=== PATIENT | female | born 1965 | race Caucasian/White ===

== ENCOUNTER → 2018-04-10 11:26 | Outpatient (CLI) | payer OTHER, SELFPAY ==
[2018-04-17 13:06] LABS: HPV APTIMA, High Risk Negative (Negative); HPV Reflexed? YES, CHARGE PATIENT
== END ==
PROVIDERS: Visit Provider Obstetrics & Gynecology
DX: Z12.4 Encounter for screening for malignant neoplasm of cervix (principal)
CPT/HCPCS: 87624; 88175; G0145

== ENCOUNTER → 2018-04-25 07:23 | Outpatient (CLI) | payer OTHER, SELFPAY ==
--- NOTE | 2018-04-25 07:26 | BI_ITS ---
MAMMOGRAPHY - BILATERAL SCREENING REASON FOR EXAM: Female, 52 years old. Routine annual screening examination. PERTINENT HISTORY: Non-contributory. TECHNIQUE: Digital bilateral breast pablo (3D mammographic acquisition) in the CC and MLO projections. 2-D mediolateral oblique (MLO) and craniocaudad (CC) views of both breasts were obtained. CAD: Full Field Digital Mammography with Computer Added Detection was performed. COMPARISON: Comparison is made with prior study dated April 23, 2017 and April 09, 2016. FINDINGS: Breast Composition: There are scattered areas of fibroglandular density. There are no dominant masses or suspicious calcifications. No other significant abnormalities are identified. There has been no significant change since the prior study. BI/SCREENING MAMM (CAD), BILAT IMPRESSION: Stable bilateral screening mammogram. Yearly follow-up mammogram recommended. (A) ASSESSMENT CATEGORY: BIRADS Category 1: Negative. A letter regarding these results will be sent to the patient by the facility within 30 days. Approximately 10% of breast cancers are not detected by mammography. A normal mammogram should not delay biopsy of a clinically suspicious abnormality. [id number] Electronically Signed: Napoleon Eaton MD at 8:43 EDT Tel [phone], Service support ,
== END ==
PROVIDERS: Family Provider Family Medicine; PCP Family Medicine; Visit Provider Obstetrics & Gynecology
DX: Z12.31 Encounter for screening mammogram for malignant neoplasm of breast (principal)
CPT/HCPCS: 77063; 77067

== ENCOUNTER → 2019-03-06 09:11 | Outpatient (CLI) | payer OTHER, SELFPAY ==
[2019-03-06 10:32] LABS: Absolute Lymphocyte Count 2.88 X10^3/ul (0.83-4.51); Absolute Neutrophil Count 2.7 X10^3/uL (2.0-7.7); Basophil# 0.06 X10^3/uL; Eosinophil# 0.11 X10^3/uL; Eosinophils% 1.8 % (0-5); Hematocrit 40.8 % (37-47); Hemoglobin 13.4 g/dl (12.0-15.0); Lymphocyte # 2.88 X10^3/ul (4.0); Lymphocyte % 46.4 % (19-41); Mean Corp Hgb Conc 32.8 g/gl (32-36); Mean Corpuscular Hgb 28.2 pg (27.0-32.0); Mean Corpuscular Volume 85.7 fL (81-99); Mean Platelet Vol. 10.5 fl (6.2-12.0); Monocyte% 8.1 % (0-10); Neutrophil # 2.65 X10^3/uL (2.7-7.7); Neutrophil % 42.5 % (47-70); POSITIVE COUNT NO; POSITIVE DIFFERENTIAL NO; POSITIVE MORPHOLOGY NO; Platelet Count 262 K/mm3 (150-450); RBC Distribution Width CV 13.3 % (11.6-14.6); RBC Distribution Width SD 41.7 fl (35.1-43.9); Red Blood Count 4.76 M/mm3 (4.2-5.4); White Blood Count 6.2 K/mm3 (4.4-11.0)
[2019-03-06 10:36] LABS: Color, Urine Yellow (Yellow); Glucose, Dipstick Normal (Normal); Ketone-Dipstick Negative (Negative); Leukocyte Esterase-Dipstick Negative /ul (Negative); Nitrite-Dipstick Negative (Negative); Occult Blood-Urine Negative /ul (Negative); Protein-Dipstick Negative (Negative); Urine Bilirubin Dipstick Negative (Negative); Urine Clarity Sl. Cloudy (Clear); Urine Urobilinogen Normal (Normal)
[2019-03-06 11:02] LABS: ALB/GLOB Ratio 0.9 RATIO (0.9-2.4); AST(SGOT) 23 U/L (15-37); Alanine Aminotransfer ALT/SGPT 29 U/L (13-56); Albumin, Serum 3.1 g/dL (3.2-5.0); Alkaline Phosphatase 94 U/L (45-117); Anion Gap 5 (5-15); BUN 12 mg/dL (7-18); BUN/Creat Ratio 14.1 RATIO (10-20); Calcium,Total 8.4 mg/dL (8.5-10.1); Chloride 107 mmol/L (98-107); Cholesterol 190 mg/dL (200); Creatinine, Serum 0.85 mg/dL (0.55-1.02); EST Glomerular Filtration Rate 75 mL/min (>60); Est Glom Filt Rate - Afr Amer 90 mL/min (>60); Globulin 3.6 g/dL (2.2-4.2); Glucose 84 mg/dL (74-106); High Density Lipoprotein 44 mg/dL; Potassium 4.4 mmol/L (3.5-5.1); Protein, Total 6.7 g/dL (6.4-8.2); Sodium Level 140 mmol/L (136-145); Thyroid Stim Hormone (TSH) 2.42 uIU/mL (0.358-3.74); Triglycerides 114 mg/dL; Very Low Density Lipoprotein 23 mg/dL (5-40)
== END ==
PROVIDERS: Family Provider Family Medicine; PCP Family Medicine; Referring Provider Family Medicine; Visit Provider Family Medicine
DX: Z00.00 Encounter for general adult medical examination without abnormal findings (principal); E03.9 Hypothyroidism, unspecified
CPT/HCPCS: 36415; 80053; 80061; 81002; 84443; 85025

== ENCOUNTER → 2019-04-15 13:28 | Outpatient (CLI) | payer OTHER, SELFPAY ==
[2019-05-27 16:51] LABS: HPV Reflexed? NOT INDICATED
== END ==
PROVIDERS: Visit Provider Obstetrics & Gynecology
DX: Z12.4 Encounter for screening for malignant neoplasm of cervix (principal)
CPT/HCPCS: 87624; 88175; G0145

== ENCOUNTER → 2019-05-05 07:00 | Outpatient (CLI) | payer OTHER, SELFPAY ==
--- NOTE | 2019-05-05 07:03 | BI_ITS ---
MAMMOGRAPHY - BILATERAL SCREENING REASON FOR EXAM: Female, 53 years old. Routine annual screening examination. PERTINENT HISTORY: Non-contributory. TECHNIQUE: Digital bilateral breast elie (3D mammographic acquisition) in the CC and MLO projections. 2-D mediolateral oblique (MLO) and craniocaudad (CC) views of both breasts were obtained. CAD: Full Field Digital Mammography with Computer Added Detection was performed. COMPARISON: Comparison is made with prior study dated April 25, 2018 and April 23, 2017. FINDINGS: Breast Composition: There are scattered areas of fibroglandular density. There are no dominant masses or suspicious calcifications. No other significant abnormalities are identified. There has been no significant change since the prior study. BI/SCREEN MAMM (CAD) W/ELIE BILAT IMPRESSION: Stable bilateral screening mammogram. Yearly follow-up mammogram recommended. (A) ASSESSMENT CATEGORY: BIRADS Category 1: Negative. A letter regarding these results will be sent to the patient by the facility within 30 days. Approximately 10% of breast cancers are not detected by mammography. A normal mammogram should not delay biopsy of a clinically suspicious abnormality. [id number] Electronically Signed: Napoleon Eaton, at 8:39 EDT , Service support ,
== END ==
PROVIDERS: Family Provider Family Medicine; PCP Family Medicine; Referring Provider Obstetrics & Gynecology; Visit Provider Obstetrics & Gynecology
DX: Z12.31 Encounter for screening mammogram for malignant neoplasm of breast (principal)
CPT/HCPCS: 77063; 77067

== ENCOUNTER → 2020-05-06 07:58 | Outpatient (CLI) | payer OTHER, SELFPAY ==
--- NOTE | 2020-05-06 08:01 | BI_ITS ---
MAMMOGRAPHY - BILATERAL SCREENING REASON FOR EXAM: Female, 54 years old. Routine annual screening examination. PERTINENT HISTORY: Non-contributory. TECHNIQUE: Digital bilateral breast elie (3D mammographic acquisition) in the CC and MLO projections. 2-D mediolateral oblique (MLO) and craniocaudad (CC) views of both breasts were obtained. CAD: Full Field Digital Mammography with Computer Added Detection was performed. COMPARISON: Comparison is made with prior examination dated May 05, 2019 and April 25, 2018. FINDINGS: Breast Composition: There are scattered areas of fibroglandular density. There are no dominant masses or suspicious calcifications. No other significant abnormalities are identified. There has been no significant change since the prior study. BI/SCREEN MAMM (CAD) W/ELIE BILAT IMPRESSION: Stable bilateral screening mammogram. Yearly follow-up mammogram recommended. (A) ASSESSMENT CATEGORY: BIRADS Category 1: Negative. A letter regarding these results will be sent to the patient by the facility within 30 days. Approximately 10% of breast cancers are not detected by mammography. A normal mammogram should not delay biopsy of a clinically suspicious abnormality. [id number] Electronically Signed: Napoleon Eaton, at 8:41 EDT , Service support ,
== END ==
PROVIDERS: PCP Family Medicine; Referring Provider Obstetrics & Gynecology; Visit Provider Obstetrics & Gynecology
DX: Z12.31 Encounter for screening mammogram for malignant neoplasm of breast (principal)
CPT/HCPCS: 77063; 77067

== ENCOUNTER → 2020-12-05 15:45 | Outpatient (CLI) | payer OTHER, SELFPAY ==
[2020-12-05 18:54] LABS: Thyroid Stim Hormone (TSH) 2.72 uIU/mL (0.358-3.74)
== END ==
PROVIDERS: PCP Family Medicine; Referring Provider Family Medicine; Visit Provider Family Medicine
DX: E03.9 Hypothyroidism, unspecified (principal)
CPT/HCPCS: 36415; 84443

== ENCOUNTER → 2021-06-13 | Outpatient (CLI) | payer OTHER, SELFPAY ==
[2021-06-17 15:31] LABS: HPV APTIMA, High Risk Negative (Negative); HPV Reflexed? NOT INDICATED
== END | disposition home or self-care (01) ==
LOC: LABSPEC 14:23
PROVIDERS: PCP Family Medicine; Visit Provider Obstetrics & Gynecology
DX: Z12.4 Encounter for screening for malignant neoplasm of cervix (principal)
CPT/HCPCS: 88175; G0145

== ENCOUNTER → 2021-06-22 07:22 | Outpatient (CLI) | payer OTHER, SELFPAY ==
[2021-06-22 08:45] LABS: AST(SGOT) 25 U/L (15-37); Alanine Aminotransfer ALT/SGPT 35 U/L (13-56); Albumin, Serum 3.3 g/dL (3.2-5.0); Alkaline Phosphatase 84 U/L (45-117); Bilirubin, Direct 0.19 mg/dL (0.00-0.30); Cholesterol 161 mg/dL (200); Globulin 3.8 g/dL (2.2-4.2); High Density Lipoprotein 50 mg/dL; Protein, Total 7.1 g/dL (6.4-8.2); Thyroid Stim Hormone (TSH) 2.45 uIU/mL (0.358-3.74); Triglycerides 96 mg/dL; Very Low Density Lipoprotein 19 mg/dL (5-40)
== END ==
PROVIDERS: PCP Family Medicine; Referring Provider Family Medicine; Visit Provider Family Medicine
DX: E78.5 Hyperlipidemia, unspecified (principal); E03.9 Hypothyroidism, unspecified
CPT/HCPCS: 36415; 80061; 80076; 84443

== ENCOUNTER → 2021-06-26 07:11 | Outpatient (CLI) | payer OTHER, SELFPAY ==
--- NOTE | 2021-06-26 07:13 | BI_ITS ---
MAMMOGRAPHY - BILATERAL SCREENING 3-D TOMOSYNTHESIS REASON FOR EXAM: Female, 55 years old. SCREENING PERTINENT HISTORY: No significant family history. TECHNIQUE: 2-D mammograms and 3-D Tomosynthesis of the breast (s) were performed. CAD was performed. COMPARISON: 05/06/2020 FINDINGS: The breast composition is composed of scattered fibroglandular density. Scattered benign calcifications are seen. No dense spiculated masses or suspicious microcalcifications are identified. No architectural distortion is identified. There is no skin thickening or retraction. There has been no significant change since the prior study. BI/SCRN MAMM (CAD)W/ELIE BILAT IMPRESSION: No mammographic signs of malignancy. Routine yearly mammograms recommended. ASSESSMENT CATEGORY: BIRADS Category 1: Negative. A letter regarding these results will be sent to the patient by the facility within 30 days. FOLLOW UP RECOMMENDATION: Yearly follow up mammogram recommended. (A) Approximately 10% of breast cancers are not detected by mammography. A normal mammogram should not delay biopsy of a clinically suspicious abnormality. Electronically Signed: Wilfred Perales MD at 9:20 EDT Tel , Service support ,
== END ==
PROVIDERS: PCP Family Medicine; Referring Provider Obstetrics & Gynecology; Visit Provider Obstetrics & Gynecology
DX: Z12.31 Encounter for screening mammogram for malignant neoplasm of breast (principal)
CPT/HCPCS: 77063; 77067

== ENCOUNTER → 2022-05-15 | Outpatient (CLI) | payer OTHER, SELFPAY ==
--- NOTE | 2022-05-15 07:34 | BI_ITS ---
MAMMOGRAPHY - BILATERAL SCREENING REASON FOR EXAM: Female, 56 years old. Routine annual screening examination. PERTINENT HISTORY: Non-contributory. TECHNIQUE: Digital bilateral breast elie (3D mammographic acquisition) in the CC and MLO projections. 2-D mediolateral oblique (MLO) and craniocaudad (CC) views of both breasts were obtained. CAD: Full Field Digital Mammography with Computer Added Detection was performed. COMPARISON: Comparison is made with prior study 06/26/2021 and 05/06/2012. FINDINGS: Breast Composition: There are scattered areas of fibroglandular density. There are no dominant masses or suspicious calcifications. Stable small benign-appearing bilateral axillary No other significant abnormalities are identified. There has been no significant change since the prior study. BI/SCRN MAMM (CAD)W/ELIE BILAT IMPRESSION: Stable bilateral screening mammogram. Yearly follow-up mammogram recommended. (A) ASSESSMENT CATEGORY: BIRADS Category 2: Benign. A letter regarding these results will be sent to the patient by the facility within 30 days. Approximately 10% of breast cancers are not detected by mammography. A normal mammogram should not delay biopsy of a clinically suspicious abnormality. [id number] Electronically Signed: Napoleon Eaton MD at 11:57 EDT ,
== END | disposition home or self-care (01) ==
LOC: OPBI 07:32
PROVIDERS: PCP Family Medicine; Referring Provider Obstetrics & Gynecology; Visit Provider Obstetrics & Gynecology
DX: Z12.31 Encounter for screening mammogram for malignant neoplasm of breast (principal)
CPT/HCPCS: 77063; 77067

== ENCOUNTER → 2023-05-20 | Outpatient (CLI) | payer OTHER, SELFPAY ==
--- NOTE | 2023-05-20 14:05 | BI_ITS ---
MAMMOGRAPHY - BILATERAL SCREENING REASON FOR EXAM: Female, 57 years old. Routine annual screening examination. PERTINENT HISTORY: Non-contributory. TECHNIQUE: Digital bilateral breast elie (3D mammographic acquisition) in the CC and MLO projections. 2-D mediolateral oblique (MLO) and craniocaudad (CC) views of both breasts were obtained. CAD: Full Field Digital Mammography with Computer Added Detection was performed. COMPARISON: Comparison is made with prior study dated May 15, 2022 and June 26, 2021. FINDINGS: Breast Composition: There are scattered areas of fibroglandular density. There are no dominant masses or suspicious calcifications. No other significant abnormalities are identified. There has been no significant change since the prior study. BI/SCRN MAMM (CAD)W/ELIE BILAT IMPRESSION: Stable bilateral screening mammogram. Yearly follow-up mammogram recommended. (A) ASSESSMENT CATEGORY: BIRADS Category 1: Negative. A letter regarding these results will be sent to the patient by the facility within 30 days. Approximately 10% of breast cancers are not detected by mammography. A normal mammogram should not delay biopsy of a clinically suspicious abnormality. [id number] Electronically Signed: Napoleon Eaton MD at 15:58 EDT ,
== END | disposition home or self-care (01) ==
LOC: OPBI 14:03
PROVIDERS: PCP Family Medicine; Referring Provider Obstetrics & Gynecology; Visit Provider Obstetrics & Gynecology
DX: Z12.31 Encounter for screening mammogram for malignant neoplasm of breast (principal)
CPT/HCPCS: 77063; 77067

== ENCOUNTER → 2024-06-03 | Outpatient (CLI) | payer OTHER, SELFPAY ==
--- NOTE | 2024-06-03 07:04 | BI_ITS ---
MAMMOGRAPHY - BILATERAL SCREENING REASON FOR EXAM: Female, 58 years old. Routine annual screening examination. PERTINENT HISTORY: Non-contributory. TECHNIQUE: Digital bilateral breast elie (3D mammographic acquisition) in the CC and MLO projections. 2-D mediolateral oblique (MLO) and craniocaudad (CC) views of both breasts were obtained. CAD: Full Field Digital Mammography with Computer Added Detection was performed. COMPARISON: Comparison is made with prior study May 20, 2023 and May 15, 2022. FINDINGS: Breast Composition: There are scattered areas of fibroglandular density. There are no dominant masses or suspicious calcifications. No other significant abnormalities are identified. There has been no significant change since the prior study. BI/SCRN MAMM (CAD)W/ELIE BILAT IMPRESSION: Stable bilateral screening mammogram. Yearly follow-up mammogram recommended. (A) ASSESSMENT CATEGORY: BIRADS Category 1: Negative. A letter regarding these results will be sent to the patient by the facility within 30 days. Approximately 10% of breast cancers are not detected by mammography. A normal mammogram should not delay biopsy of a clinically suspicious abnormality. [id number] Electronically Signed: Napoleon Eaton MD at 9:09 EDT ,
== END | disposition home or self-care (01) ==
LOC: OPBI 07:02
PROVIDERS: PCP Family Medicine; Referring Provider Family Medicine; Visit Provider Family Medicine
DX: Z12.31 Encounter for screening mammogram for malignant neoplasm of breast (principal)
CPT/HCPCS: 77063; 77067

== ENCOUNTER → 2025-06-14 | Outpatient (CLI) | payer BC, SELFPAY ==
--- NOTE | 2025-06-14 07:17 | BI_ITS ---
EXAM: SCRN MAMM (CAD)W/ELIE BILAT DATE: 06/14/2025 CLINICAL HISTORY: F, Age 59 y/o , SCREENING TECHNIQUE: SCRN MAMM (CAD)W/ELIE BILAT COMPARISON: Prior exam(s) dated 06/03/2024, 05/20/2023, and 05/15/2022. FINDINGS: TISSUE DENSITY: There are scattered areas of fibroglandular density. Bilateral Breast Mammographic Findings: Benign round microcalcifications are seen in both breasts. No suspicious masses, suspicious cluster of microcalcifications, architectural distortion or secondary signs of malignancy is identified in either breast. BI/SCRN MAMM (CAD)W/ELIE BILAT IMPRESSION: Benign screening mammogram. OVERALL FINAL ASSESSMENT BI-RADS 2: BENIGN RECOMMENDATION: Routine annual follow-up in 1 Year A letter with findings and recommendations will be mailed to the patient. Reading Location: [id number]
--- OUTSIDE RECORDS SUMMARY | 2025-06-14 07:23 | XMS RPT_ITS | CCD ---
Author Organization [facility] ion Partnership [facility] Care Team Providers Care Acreage Reporter Name Role Phone Kartik GEORGE, Jill Irizarry Primary Care Provider Stephen Ferreira Unavailable Juan Diego Diaz Unavailable Jill Bullock MD Primary Care Provider Juan Diego Diaz Unavailable Jill Bullock MD Primary Care Provider Juan Diego Diaz MD Unavailable Jill Bullock MD Primary Care Provider Jill Bullock MD Primary Care Provider JILL BULLOCK Attending Unavailab JILL Quintero Primary Care Unavailab JILL Quintero Referring Unavailab le JILL BULLOCK Primary Care Unavailab JILL Quintero Attending Unavailab JILL Quintero Primary Care Unavailab JILL Quintero Referring Unavailab JILL Quintero Primary Care Unavailab SHAWNA Beasley Attending Unavailable JILL BULLOCK Primary Care Unavailab le JILL BULLOCK Primary Care Unavailab le ISAAC, JOANNE Attending Unavailable Jill Bullock Primary Care Unavailable [place] BRICK HANDLER, Joanne Referring Unavailable Isaac BRICK HANDLER, Joanne Attending Unavailable Allergies Allergy Classification Reported Allergen(s) Allergy Type Date of Onset Reaction(s) Facility Penicillins (antibiotic) (1 source) Amoxicillin Drug Allergy 07-07-2014 Rash, Itching [facility] (20 sources) Amoxicillin; Translations: [AMOXICILLIN] Drug Allergy 07-07-2014 Intolerance, Rash, Itching [facility] Medications Current Medications Medication Drug Class(es) Dates Sig (Normalized) Sig (Original) levothyroxine sodium 0.125 mg oral tablet (20 sources) l-Thyroxine Start: 04-22-2025 take 1 tablet by mouth once daily levothyroxine (SYNTHROID) 125 mcg tablet Take 1 tablet by mouth once daily. 90 tablet 3 04/22/2025 Active Start: 10-01-2023 End: 04-21-2026 take 1 tablet by mouth once daily levothyroxine (LEVOXYL) 137 mcg tablet Take 1 tablet by mouth once daily. 90 tablet 3 04/21/2025 04/22/2025 Discontinued Start: 03-31-2023 End: 03-30-2024 take 1 tablet by mouth once daily levothyroxine (LEVOXYL) 150 mcg tablet Take 1 tablet by mouth once daily. 90 tablet 3 03/31/2023 10/01/2023 Discontinued Start: 06-28-2022 End: 03-31-2023 take 1 tablet by mouth once daily SYNTHROID 137 mcg tablet Indications: Hypothyroidism, unspecified type Take 1 tablet by mouth once daily. 90 tablet 0 09/26/2022 09/26/2022 Discontinued End: 09-26-2022 take 1 tablet by mouth once daily before breakfast levothyroxine (SYNTHROID) 125 mcg tablet Take 125 mcg by mouth daily before breakfast. 0 09/26/2022 Discontinued Comment on above: Take 125 mcg by mout h daily before breakfast. Take 1 tablet by jose th once daily. Take 137 mcg by mout h once daily. omega 0-raw-vsr-fish oil (FISH OIL) 60-90-500 mg cap (11 sources) End: 05-27-2025 omega 1-ljb-qiz-fish oil (FISH OIL) 60-90-500 mg cap Take by mouth. 05/27/2025 Discontinued omega 3-dha-epa- fish oil (FISH OIL) 60-90-500 mg cap Take by mouth. Active omega 3-dha-epa- fish oil (FISH OIL) 60-90-500 mg cap Take by mouth. 0 Active Comment on above: Take by mouth. proparacaine hydrochloride 5 mg/ml ophthalmic solution (2 sources) Local Anesthetic Start: 07-11-2023 End: 07-12-2023 proparacaine 0.5 % 1 Drop (ALCAINE) Start: 07-11-2022 End: 07-12-2022 proparacaine 0.5 % 1 Drop (A LCAINE) rosuvastatin calcium 10 mg oral tablet (19 sources) HMG-CoA Reductase Inhibitor Start: 03-09-2021 End: 04-21-2025 take 1 tablet by mouth once daily rosuvastatin (CRESTOR) 10 mg tablet Indications: Mixed hyperlipidemia Take 1 tablet by mouth once daily. 90 tablet 3 04/21/2025 Active Comment on above: Take 1 tablet by jose th once daily. Take by mouth. sertraline 100 mg oral tablet (20 sources) Serotonin Reuptake Inhibitor Start: 06-28-2022 End: 04-21-2025 take 1 tablet by mouth once daily sertraline (ZOLOFT) 100 mg tablet Indications: Depressive disorder Take 1 tablet by mouth once daily. 90 tablet 3 04/21/2025 Active End: 09-26-2022 SERTRALINE HCL (ZOLOFT ORAL) Take by mouth once daily. 0 09/26/2022 Discontinued SERTRALINE HCL ( ZOLOFT ORAL) Take by mouth once daily. 0 Active Comment on above: Take by mouth once d aily. Take 1 tablet by jose th once daily. Completed/Discontinued Medications Medication Drug Class(es) Dates Sig (Normalized) Sig (Original) benoxinate hydrochloride 4 mg/ml / fluorescein sodium 2.5 mg/ml ophthalmic solution (3 sources) Diagnostic Dye Start: 07-17-2024 End: 07-17-2024 fluorescein-benoxi black 0.25-0.4 % 1 Drop (FLURESS) Start: 07-17-2024 End: 07-17-2024 1 Drop, BOTH EYES, ONCE, 1 d ose, On Sat07/17/24 at 0830, FOR THE EYE Start: 07-11-2022 End: 07-12-2022 fluorescein-benoxinate 0.25- 0.4 % 1 Drop (FLURESS) Ethinyl Estradiol / Levonorgestrel (3 sources) Progestin, Estrogen, Progestin-containing Intrauterine Device Start: 07-08-2015 End: 09-26-2022 LEVORA-28 0.15-0.03 mg per tablet Start: 07-08-2015 LEVORA-28 0.15 -0.03 mg per tablet MULTIVITAMIN ORAL (3 sources) End: 09-26-2022 MULTIVITAMIN ORAL Take by mo ut. 0 09/26/2022 Discontinued MULTIVITAMIN ORA L Take by mouth. 0 Active Comment on above: Take by mouth. [place]-3 Fatty Acids-Vitamin E (FISH OIL) 1,000 mg cap (3 sources) End: 09-26-2022 take 1 capsule by mouth once daily [place]-3 Fatty Acids-Vitamin E (FISH OIL) 1,000 mg cap Take 1 capsule by mouth once daily. 0 09/26/2022 Discontinued take 1 capsule by mouth once cheko ly [place]-3 Fatty Acids-Vitamin E (FISH OIL) 1,000 mg cap Take 1 capsule by mouth once daily. 0 Active Comment on above: Take 1 capsule by [facility] once daily. phenylephrine hydrochloride 25 mg/ml ophthalmic solution (4 sources) alpha-1 Adrenergic Agonist Start: 07-17-2024 End: 07-17-2024 PHENYLephrine 2.5 % 1 Drop (AK-DILATE, ANUM-SYNEPHRINE) Start: 07-17-2024 End: 07-17-2024 1 Drop, BOTH EYES, ONCE, 1 d ose, On Sat07/17/24 at 0830, FOR OPHTHALMIC USE ONLY PROTECT FROM LIGHT Start: 07-11-2023 End: 07-12-2023 PHENYLephrine 2.5 % 1 Drop ( AK-DILATE, ANUM-SYNEPHRINE) Start: 07-11-2022 End: 07-12-2022 PHENYLephrine 2.5 % 1 Drop ( AK-DILATE, ANUM-SYNEPHRINE) tropicamide 10 mg/ml ophthalmic solution (4 sources) Anticholinergic Start: 07-17-2024 End: 07-17-2024 tropicamide 1 % 1 Drop (MYDRIACYL) Start: 07-17-2024 End: 07-17-2024 1 Drop, BOTH EYES, ONCE, 1 d ose, On Sat07/17/24 at 0830, FOR THE EYE Start: 07-11-2023 End: 07-12-2023 tropicamide 1 % 1 Drop (MYDR IACYL) Start: 07-11-2022 End: 07-12-2022 tropicamide 1 % 1 Drop (MYDR IACYL) Problems Active Problems Problem Classification Problem Date Documented Da te Episodic/Chronic Disorders of lipid metabolism (20 sources) Mixed hyperlipidemia; Translations: [Mixed hyperlipidemia] Onset: 03-10-2020 Chronic Mood disorders (20 sources) Depressive disorder; Translations: [Depressive disorder] Onset: 07-22-2017 Chronic Other eye disorders (20 sources) Bilateral vitreous floaters; Translations: [Other vitreous opacities, bilateral] Onset: 07-08-2014 07-28-2015 Chronic Other eye disorders (1 source) Bilateral posterior vitreous detachment; Translations: [Vitreous degeneration, bilateral] 07-17-2024 Chronic Other screening for suspected conditions (not mental disorders or infectious disease) (13 sources) Patient encounter status; Translations: [Encounter for screening for diseases of the blood and blood-forming organs and certain disorders involving the immune mechanism] Onset: 04-21-2025 Episodic Screening and history of mental health and substance abuse codes (1 source) Encounter for screening examination for other mental health and behavioral disorders; Translations: [Encounter for screening examination for other mental health and behavioral disorders] Onset: 04-21-2025 Episodic Thyroid disorders (20 sources) Hypothyroidism; Translations: [Hypothyroidism, unspecified] Onset: 07-22-2017 Chronic Past or Other Problems Problem Classification Problem Date Documented Da te Episodic/Chronic Other eye disorders (8 sources) Degenerative progressive high myopia; Translations: [Degenerative myopia, unspecified eye] Onset: 07-08-2014 Resolved: 09-06-2016 09-06-2016 Chronic Other eye disorders (20 sources) Tear film insufficiency; Translations: [Dry eye syndrome of bilateral lacrimal glands] Onset: 09-06-2016 09-17-2019 Episodic Retinal detachments; defects; vascular occlusion; and retinopathy (8 sources) Peripheral retinal degeneration; Translations: [Unspecified peripheral retinal degeneration] Onset: 07-08-2014 Resolved: 09-06-2016 09-06-2016 Chronic Unclassified (1 source) Patient encounter status 03-30-2025 Results Test Name Value Interpretation Reference Range Facility [facility] 05-27-2025 CNOV Office Visit (OBGYWM ) ----- SEGUNDOVERONICA MOTTA ([id number]) 1965 F Date Time Provider Department 05/27/25 7:00 AM JOANNE MEDINA OBALPAWNishi During your visit today, we recorded the following information about you: Blood pressure Weight Height 124/70 106.6 kg 1.664 m Joanne Medina APRN.CNP 05/27/2025 7:16 AM Signed 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 Diandra is a 59 year old who presents for an annual gynecologic exam without complaints. Postmenopausal: Yes since age 53 HRT use: No. Last Pap: 2023 normal HPV: 2023 negative History of abnormal pap: Yes LEEP 2004, 2011 Last mammogram: [address] [facility] History of abnormal mammogram: No Sexually active: No Patient concerns for STD exposure: No. 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 Administrator History Comments: Sexual Activity: Yes; No partner data on record; not asked Contraception: No contraception data on record PAST MEDICAL HISTORY Diagnosis Date Abnormal Pap smear of cervix normal after 2011 Allergic rhinitis, cause unspecified Depressive disorder, not elsewhere classified Mixed hyperlipidemia Unspecified hypothyroidism 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 No bloating, early satiety, indigestion, or increased flatulence. Bladder: No dysuria, gross hematuria, urinary frequency, urinary urgency, or incontinence Breast: No breast lumps, nipple d/c, overlying skin changes, redness or skin retraction Allergies and current medication updated:Yes SENSITIVE EXAM: The sensitive examination was discussed with the Patient or Patient's Authorized Video And Sound Recorder. As applicable, any other physician, advance practice provider, medical student, or other health professional student that will be observing or involved in the sensitive examination for educational or training purposes was discussed with the Patient or Authorized Video And Sound Recorder. The Patient or Authorized Video And Sound Recorder has agreed to proceed with the sensitive examination. (Sensitive examination includes inspection and/or palpation of the breasts, pelvis, prostate and anorectal regions). EXAM: BP 124/70 Ht 5' 5.5 (1.66m) Wt 235 lb (106.6kg) LMP 12/09/2017 BMI 38.50 kg/(m2). GENERAL: pleasant, female in no apparent distress HEENT: Normocephalic, atraumatic, mucus membranes moist, and no lesions DERMATOLOGY: Normal, without lesions, non-icteric, and non-hirsute BREAST: soft, non-tender, symmetric, no dominant mass, normal nipple-areolar complex, no lymphadenopathy, and no nipple discharge CHEST: Normal inspiratory effort ABDOMEN: soft, non-tender, and no masses PELVIC: external genitalia normal, normal Bartholin's glands, urethra, [place]'s glands, no vulvar lesions, no cervical lesions, good vaginal support, physiologic discharge present, normal appearing perineal body and perianal region, stenotic os BIMANUAL: uterus normal size, shape and consistency, no adnexal masses, and non-tender RECTOVAGINAL: deferred. NEURO: alert and oriented x3,exam grossly non-focal EXTREMITIES: normal ASSESSMENT/PLAN: 1) Health maintenance: Pap/HPV up to date. Mammogram ordered @ [facility] Nutrition, exercise and routine health maintenance exams reviewed. Calcium/Vitamin D supplementation information provided. Colon cancer screening: up to date with screening 2) Follow up one year or sooner as needed Joanne Medina APRN.NAHEED Allergies As of Date: 05/27/2025 Noted Allergy Reaction AMOXIL (AMOXICILLIN) 07/07/2014 2 - Rash 9 - Itching Date Reviewed: 05/27/2025 Reviewed by: Joanne Medina APRN.CORE ANALYSIS OPERATOR - Fully Assessed Reason for Visit: Yearly Exam [187] Primary Visit Diagnosis:Encounter for gynecological examination (general) (routine) without abnormal findings [Z01.419] Other Visit Diagnosis:Encounter for screening mammogram for breast cancer [Z12.31] Prescriptions as of 05/27/2025 - levothyroxine (SYNTHROID) 125 mcg tablet Take 1 tablet by mouth (more content not included)... Normal [facility] CBC W Auto Differential pane l (Bld)Ordered By: Mar Pedroza on 04-21-2025 Basophils (Bld) [#/Vol] 0.07 10*3/uL [facility] Basophils/100 WBC (Bld) 0.9 % [facility] Differential cell count method Nom (Bld) Auto [facility] Eosinophils (Bld) [#/Vol] 0.06 10*3/uL [facility] Eosinophils/100 WBC (Bld) 0.8 % [facility] Erythrocyte distribution width (RBC) [Ratio] 13.1 % 11.5 - 15.0 % [facility] Hematocrit (Bld) [Volume fraction] 45.3 % 36.0 - 46.0 % [facility] Hemoglobin (Bld) [Mass/Vol] 14.6 g/dL 11.5 - 15.5 g/dL [facility] Immature granulocytes (Bld) [#/Vol] [facility] Immature granulocytes/100 WBC (Bld) 0 % [facility] Lymphocytes (Bld) [#/Vol] 2.57 10*3/uL [facility] Lymphocytes/100 WBC (Bld) 34.5 % [facility] MCH (RBC) [Entitic mass] 29.3 pg 26.0 - 34.0 pg [facility] MCHC (RBC) [Mass/Vol] 32.2 g/dL 30.5 - 36.0 g/dL [facility] MCV (RBC) [Entitic vol] 91 fL 80.0 - 100.0 fL [facility] Monocytes (Bld) [#/Vol] 0.61 10*3/uL [facility] Monocytes/100 WBC (Bld) 8.2 % [facility] Neutrophils (Bld) [#/Vol] 4.14 10*3/uL [facility] Neutrophils/100 WBC (Bld) 55.6 % [facility] Platelet mean volume (Bld) [Entitic vol] 10.7 fL 9.0 - 12.7 fL [facility] Platelets (Bld) [#/Vol] 246 10*3/uL [facility] RBC (Bld) [#/Vol] 4.98 10*6/uL 3.90 - 5.2 0 m/uL [facility] WBC (Bld) [#/Vol] 7.45 10*3/uL [facility] CBC W Auto Differential pane l (Bld)on 04-21-2025 Basophils (Bld) [#/Vol] 0.07 10*3/uL Normal <0.11 [facility] Comment on above: Order Comment: Speci men Type: BLOOD SPECIMEN Ordering Facility: [facility] Address: [address] [place] [address] Performed By: #### 5 7021-8 #### [facility] CLIA [id number] [address] [place] [address] [place] Basophils/100 WBC (Bld) 0.9 % Normal [facility] Comment on above: Order Comment: Speci men Type: BLOOD SPECIMEN Ordering Facility: [facility] Address: [address] [place] [address] Performed By: #### 5 7021-8 #### [facility] CLIA [id number] [address] [place] [address] [place] Differential cell count method Nom (Bld) Auto Normal [facility] Comment on above: Order Comment: Speci men Type: BLOOD SPECIMEN Ordering Facility: [facility] Address: [address] [place] [address] Performed By: #### 5 7021-8 #### [facility] CLIA [id number] [address] [place] [address] [place] Eosinophils (Bld) [#/Vol] 0.06 10*3/uL Normal <0.46 [facility] Comment on above: Order Comment: Speci men Type: BLOOD SPECIMEN Ordering Facility: [facility] Address: [address] [place] [address] Performed By: #### 5 7021-8 #### [facility] CLIA [id number] [address] [place] [address] [place] Eosinophils/100 WBC (Bld) 0.8 % Normal [facility] Comment on above: Order Comment: Speci men Type: BLOOD SPECIMEN Ordering Facility: [facility] Address: [address] [place] [address] Performed By: #### 5 7021-8 #### [facility] CLIA [id number] [address] [place] [address] [place] Erythrocyte distribution width (RBC) [Ratio] 13.1 % Normal 11.5-15.0 [facility] Comment on above: Order Comment: Speci men Type: BLOOD SPECIMEN Ordering Facility: [facility] Address: [address] [place] [address] Performed By: #### 5 7021-8 #### [facility] CLIA [id number] [address] [place] [address] [place] Hematocrit (Bld) [Volume fraction] 45.3 % Normal 36.0-46.0 [facility] Comment on above: Order Comment: Speci men Type: BLOOD SPECIMEN Ordering Facility: [facility] Address: [address] [place] [address] Performed By: #### 5 7021-8 #### [facility] CLIA [id number] [address] [place], [place] [address] [place] Hemoglobin (Bld) [Mass/Vol] 14.6 g/dL Normal 11.5-15.5 [facility] Comment on above: Order Comment: Speci men Type: BLOOD SPECIMEN Ordering Facility: [facility] Address: [address] [place] [address] Performed By: #### 5 7021-8 #### [facility] CLIA [id number] [address] [place] [address] [place] Immature granulocytes (Bld) [#/Vol] 10*3/uL Normal <0.10 [facility] Comment on above: Order Comment: Speci men Type: BLOOD SPECIMEN Ordering Facility: [facility] Address: [address] [place] [address] Performed By: #### 5 7021-8 #### [facility] CLIA [id number] [address] [place], [place] [address] [place] [facility] Immature granulocytes/100 WBC (Bld) 0.0 % Normal [facility] Comment on above: Order Comment: Speci men Type: BLOOD SPECIMEN Ordering Facility: [facility] Address: [address] [place] [address] Performed By: #### 5 7021-8 #### [facility] CLIA [id number] [address] [place] [address] [place] Lymphocytes (Bld) [#/Vol] 2.57 10*3/uL Normal 1.00-4.00 [facility] Comment on above: Order Comment: Speci men Type: BLOOD SPECIMEN Ordering Facility: [facility] Address: [address] [place] [address] Performed By: #### 5 7021-8 #### [facility] CLIA [id number] [address] [place] [address] [place] [facility] Lymphocytes/100 WBC (Bld) 34.5 % Normal [facility] Comment on above: Order Comment: Speci men Type: BLOOD SPECIMEN Ordering Facility: [facility] Address: [address] [place] [address] Performed By: #### 5 7021-8 #### [facility] CLIA [id number] [address] [place], [place] [address] [place] MCH (RBC) [Entitic mass] 29.3 pg Normal 26.0-34.0 [facility] Comment on above: Order Comment: Speci men Type: BLOOD SPECIMEN Ordering Facility: [facility] Address: [address] [place] [address] Performed By: #### 5 7021-8 #### [facility] CLIA [id number] [address] [place] [address] STATES [facility] MCHC (RBC) [Mass/Vol] 32.2 g/dL Normal 30.5-36.0 [facility] Comment on above: Order Comment: Speci men Type: BLOOD SPECIMEN Ordering Facility: [facility] Address: [address] [place] [address] Performed By: #### 5 7021-8 #### [facility] CLIA [id number] [address] [place] [address] [place] MCV (RBC) [Entitic vol] 91.0 fL Normal 80.0-100.0 [facility] Comment on above: Order Comment: Speci men Type: BLOOD SPECIMEN Ordering Facility: [facility] Address: [address] [place] [address] Performed By: #### 5 7021-8 #### [facility] CLIA [id number] [address] [place] [address] [place] Monocytes (Bld) [#/Vol] 0.61 10*3/uL Normal <0.87 [facility] Comment on above: Order Comment: Speci men Type: BLOOD SPECIMEN Ordering Facility: [facility] Address: [address] [place] [address] Performed By: #### 5 7021-8 #### [facility] CLIA [id number] [address] [place], [place] [address] [place] Monocytes/100 WBC (Bld) 8.2 % Normal [facility] Comment on above: Order Comment: Speci men Type: BLOOD SPECIMEN Ordering Facility: [facility] Address: [address] [place] [address] Performed By: #### 5 7021-8 #### [facility] CLIA [id number] [address] [place], [place] [address] [place] Neutrophils (Bld) [#/Vol] 4.14 10*3/uL Normal 1.45-7.50 [facility] Comment on above: Order Comment: Speci men Type: BLOOD SPECIMEN Ordering Facility: [facility] Address: [address] [place] [address] Performed By: #### 5 7021-8 #### [facility] CLIA [id number] [address] [place] [address] [place] Neutrophils/100 WBC (Bld) 55.6 % Normal [facility] Comment on above: Order Comment: Speci men Type: BLOOD SPECIMEN Ordering Facility: [facility] Address: [address] [place] [address] Performed By: #### 5 7021-8 #### [facility] CLIA [id number] [address] [place] [address] [place] Platelet mean volume (Bld) [Entitic vol] 10.7 fL Normal 9.0-12.7 [facility] Comment on above: Order Comment: Speci men Type: BLOOD SPECIMEN Ordering Facility: [facility] Address: [address] [place] [address] Performed By: #### 5 7021-8 #### [facility] CLIA [id number] [address] [place] [address] [place] Platelets (Bld) [#/Vol] 246 10*3/uL Normal 150-400 [facility] Comment on above: Order Comment: Speci men Type: BLOOD SPECIMEN Ordering Facility: [facility] Address: [address] [place] [address] Performed By: #### 5 7021-8 #### [facility] CLIA [id number] [address] [place], [place] [address] [place] RBC (Bld) [#/Vol] 4.98 10*6/uL Normal 3.90-5.20 [facility] Comment on above: Order Comment: Speci men Type: BLOOD SPECIMEN Ordering Facility: [facility] Address: [address] [place] [address] Performed By: #### 5 7021-8 #### [facility] CLIA [id number] [address] [place] [address] [place] WBC (Bld) [#/Vol] 7.45 10*3/uL Normal 3.70-11.00 [facility] Comment on above: Order Comment: Speci men Type: BLOOD SPECIMEN Ordering Facility: [facility] Address: [place] [address], [place] [address] Performed By: #### 5 7021-8 #### [facility] CLIA [id number] [place] [address] [facility] CNOVon 04-21-2025 CNOV Office Visit (FAMMAS ) ----- SEGUNDOVERONICA MOTTA ([id number]) 1965 F Date Time Provider Department 04/21/25 8:00 AM JILL BULLOCK During your visit today, we recorded the following information about you: Temperature Pulse Respiration Blood pressure 97.3 degrees 78/minute 18/minute 124/84 Weight Height 105.2 kg 1.676 m Luz Sahni LPN 04/21/2025 8:28 AM Signed [facility] [employer] Hepatitis C Screening declined HIV Screening declined DTaP,Tdap,Td Vaccine(1 - Tdap) declined Hepatitis B Vaccine(1 of 3 - 19+ 3-dose series) declined Shingrix Vaccine(1 of 2) declined Pneumococcal Vaccine: 50+(1 of 1 - PCV) declined Mammogram Screening scheduled Covid-19 Vaccine( - season) declined SENSITIVE EXAMINATION CONSENT: The sensitive examination was discussed with the Patient or Patient's Authorized Video And Sound Recorder. As applicable, any other physician, advance practice provider, medical student, or other health professional student that will be observing or involved in the sensitive examination for educational or training purposes was discussed with the Patient or Authorized Video And Sound Recorder. The Patient or Authorized Video And Sound Recorder has agreed to proceed with the sensitive examination. Luz Sahni LPN April 21, 2025 8:08 AM Jill Bullock MD 04/21/2025 8:28 AM Signed Subjective Diandra Katya Del Angel is a 59-year-old female with a history of hyperlipidemia, hypothyroidism, and depression, presenting for an annual wellness visit. Annual Wellness Exam: - Last mammogram was in March of last year. - Reports difficulty sleeping last night due to an active mind; denies chronic sleep issues. - Recent move; reports feeling okay. Hyperlipidemia: - Taking Crestor 10 mg daily. - Last labs were in September. Hypothyroidism: - Taking levothyroxine; occasionally misses doses. - Last TSH check was in September. Depression: - Managed with Zoloft 100 mg daily; reports feeling well on current dose. Supplements: - Takes fish oil inconsistently. Review of Systems GENERAL: Positive for sleep disturbance; denies weight loss, generalized discomfort, or fever. HEENT: Negative for frequent or significant headaches, no changes in vision or hearing, no epistaxis or other nasal problems. NECK: Negative for lumps, goiter, pain, or significant neck swelling. RESPIRATORY: Negative for cough, dyspnea, or shortness of breath. CARDIOVASCULAR: Negative for chest pain, leg swelling, CHF, or palpitations. GI: No nausea, vomiting, diarrhea, heartburn, abdominal pain, blood in stool, or black stool. GENITOURINARY: No history of dysuria, frequency, or incontinence. MUSCULOSKELETAL: Negative for joint pain or swelling or muscle pain. No back pain. SKIN: Negative for lesions, rash, and itching. PSYCH: Negative for anxiety or depression. HEMATOLOGY/LYMPHOLOGY: No bleeding concerns. NEURO: No history of headaches, syncope, paralysis, seizures, or tremors. ENDOCRINE: No history of polydipsia, increased thirst, or other endocrine symptoms. 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 PAST MEDICAL HISTORY Diagnosis Date Abnormal Pap smear of cervix normal after 2011 Allergic rhinitis, cause unspecified Depressive disorder, not elsewhere classified Mixed hyperlipidemia Unspecified hypothyroidism FAMILY HISTORY Problem Relation Age of Onset other (endometrial cancer) Mother No Known Problems Father Mental illness Brother Dementia Maternal Grandmother Heart Maternal Grandmother Cancer Maternal Grandfather Emphysema Paternal Grandfather Social History Tobacco Use Smoking status: Never Passive exposure: Never Smokeless tobacco: Never Vaping Use Vaping status: Never Used Substance Use Topics Alcohol use: No Drug use: No ALLERGIES Allergen Reactions Amoxil [Amoxicillin] Rash, Itching MEDICATIONS: omega 1-vzn-hep-fish oil (FISH OIL) 60-90-500 mg cap Take by mouth. rosuvastatin (CRESTOR) 10 mg tablet Take 1 tablet by mouth once daily. sertraline (ZOLOFT) 100 mg tablet Take 1 tablet by mouth once daily. levothyroxine (LEVOXYL) 137 mcg tablet Take 1 tablet by mouth once daily. Allergies, past surgical history, family history and past medical history were reviewed per this encounter. Medications were reviewed and verified. 10/07/2024 04/19/2025 INTAKE PAIN ASSESSMENT Are you having pain associated with your visit today? No No If pain assessment is 0, no action needed. If pain assessment is positive, please see assessment and plain. Objective Labs: (September) - Lipid Panel: LDL at target range - TSH: Within normal limits Imaging: Tests: BP 124/84 (BP Site: Left Arm, BP P (more content not included)... Normal [facility] Comprehensive metabolic 2000 panelon 04-21-2025 Albumin [Mass/Vol] 3.5 g/dL Normal 3.2-5.0 [facility] Comment on above: Order Comment: Speci men Type: BLOOD SPECIMENOrdering Facility: [facility] Address: [address] [place] [address] Performed By: #### 2 4323-8, 3015-12 ####[facility] LABORATORYCLIA [id number] [address] [place]#### [address]-7 ####[facility] LABORATORYCLIA [id number] [place] [address] [place] [facility] LABCLIA [id number] [place] [address] [place] ALP [Catalytic activity/Vol] 98 U/L Normal 45-117 [facility] Comment on above: Order Comment: Speci men Type: BLOOD SPECIMENOrdering Facility: [facility] Address: [address] [place] [address] Performed By: #### 2 4323-8, 3015-12 ####[facility] LABORATORYCLIA [id number] [address] OF [place]#### 13195-1 ####[facility] LABORATORYCLIA [id number] [place] [address] [facility] [place] LABCLIA [id number] [place] [address] [place] ALT [Catalytic activity/Vol] 33 U/L Normal 13-61 [facility] Comment on above: Order Comment: Speci men Type: BLOOD SPECIMENOrdering Facility: [facility] Address: [address] [place] [address] Result Comment: Resu lts may be falsely depressed after the administration of Sulfasalazine and/or Sulfapyridine. Performed By: #### 2 4323-8, 3016-3 ####[facility]ORATORYCLIA [id number] [address] [place]#### [address]-8 ####[facility] LABORATORYCLIA [id number] [address] [place] LABCLIA [id number] [address] STATES [facility] Anion gap [Moles/Vol] 11 mmol/L Normal 5-16 [facility] Comment on above: Order Comment: Speci men Type: BLOOD SPECIMENOrdering Facility: [facility] Address: [address] [place] [address] Performed By: #### 2 4323-8, 3016-3 ####[facility]ORATORYCLIA [id number] [address] [place]#### 51135-1 ####[facility] LABORATORYCLIA [id number] [place] [address] [facility] [place] LABCLIA [id number] [place] [address] [place] AST [Catalytic activity/Vol] 30 U/L Normal 8-34 [facility] Comment on above: Order Comment: Speci men Type: BLOOD SPECIMENOrdering Facility: [facility] Address: [address] [place] [address] Result Comment: Resu lts may be falsely depressed after the administration of Sulfasalazine and/or Sulfapyridine. Performed By: #### 2 4323-8, 3016-3 ####[facility]ORATORYCLIA [id number] [place] [address] [place]#### 77483-9 ####[facility]ORATORYCLIA [id number] [address] [place] LABCLIA [id number] [place] [address] [place] Bilirubin [Mass/Vol] 1.1 mg/dL High 0.2-1.0 [facility] Comment on above: Order Comment: Speci men Type: BLOOD SPECIMENOrdering Facility: [facility] Address: [address] [place] [address] Performed By: #### 2 4323-8, 6-3 ####[facility]ORATORYCLIA [id number] [place] [address] [place]#### 90048-0 ####[facility]ORATORYCLIA [id number] [address] [place] LABCLIA [id number] [place] [address] [place] Calcium [Mass/Vol] 9.5 mg/dL Normal 8.5-10.5 [facility] Comment on above: Order Comment: Speci men Type: BLOOD SPECIMENOrdering Facility: [facility] Address: [address] [place] [address] Performed By: #### 2 4323-8, 6-3 ####[facility] LABORATORYCLIA [id number] [place] [address] [place]#### 50380-1 ####[facility] LABORATORYCLIA [id number] [place] [address] [place] [facility] [place] LABCLIA [id number] [place] [address] [place] Chloride [Moles/Vol] 102 mmol/L Normal 98-107 [facility] Comment on above: Order Comment: Speci men Type: BLOOD SPECIMENOrdering Facility: [facility] Address: [address] [place] [address] Performed By: #### 2 4323-8, 3016-3 ####[facility] LABORATORYCLIA [id number] [place] [address] [place]#### 71494-6 ####[facility] LABORATORYCLIA [id number] [place] [address] [place] [facility] [place] LABCLIA [id number] [place] [address] [place] CO2 [Moles/Vol] 29 mmol/L Normal 21-32 [facility] Comment on above: Order Comment: Speci men Type: BLOOD SPECIMENOrdering Facility: [facility] Address: [address] [place] [address] Performed By: #### 2 4323-8, 3016-3 ####[facility] LABORATORYCLIA [id number] [place] [address] [place]#### 23394-3 ####[facility] LABORATORYCLIA [id number] [place] [address] [place] LABCLIA [id number] [place] [address] [place] Creatinine [Mass/Vol] 0.85 mg/dL Normal 0.51-0.95 [facility] Comment on above: Order Comment: Speci men Type: BLOOD SPECIMENOrdering Facility: [facility] Address: [address] [place] [address] Result Comment: Taylor ents receiving either N-Acetylcysteine (NAC) or Metamizole prior to venipuncture, may have falsely depressed results. Performed By: #### 2 4323-8, 3016-3 ####[facility] LABORATORYCLIA [id number] [address]#### 708[address]-8 ####[facility] LABORATORYCLIA [id number] [address] LABIA [id number] [address] Creatinine and Glomerular filtration rate.predicted panel (S/P/Bld) 80 mL/min/1.73m??? Normal >=60 [facility] Comment on above: Order Comment: Speci men Type: BLOOD SPECIMENOrdering Facility: [facility] Address: [address] [place] [address] Result Comment: Natalie mated Glomerular Filtration Rate (eGFR) is calculated using the 2020 CKD-EPI creatinine equation. This equation utilizes serum creatinine, sex, and age as parameters. The creatinine assay has traceable calibration to isotope dilution-mass spectrometry. Refer to KDIGO guidelines for clinical interpretation. In patients with unstable renal function, e.g. those with acute kidney injury, the eGFR may not accurately reflect actual GFR. Performed By: #### 2 4323-8, 6-3 ####[facility]ORATORYCLIA [id number] [address]#### 322[address]-0 ####[facility]ORATORYCLIA [id number] [address] LABCLIA [id number] [address] [place] Glucose [Mass/Vol] 96 mg/dL Normal 70-100 [facility] Comment on above: Order Comment: Speci men Type: BLOOD SPECIMENOrdering Facility: [facility] Address: [address] [place] [address] Result Comment: The [place] Diabetes Association (ADA) provides guidance for cutoff values for fasting glucose and random glucose. The ADA defines fasting as no caloric intake for at least 8 hours. Fasting plasma glucose results between 100 to 125 mg/dL indicate increased risk for diabetes (prediabetes). Fasting plasma glucose results greater than or equal to 126 mg/dL meet the criteria for diagnosis of diabetes. In the absence of unequivocal hyperglycemia, results should be confirmed by repeat testing. In a patient with classic symptoms of hyperglycemia or hyperglycemic crisis, random plasma glucose results greater than or equal to 200 mg/dL meet the criteria for diagnosis of diabetes. Reference: Standards of Medical Care in Diabetes 2016, [place] Diabetes Association. Diabetes Care. 2016.39(Suppl 1). Results may be falsely elevated after the administration of Sulfapyridine. Results may be falsely depressed after the administration of Sulfasalazine. Performed By: #### 2 4323-8, 6-3 ####[facility] LABORATORYCLIA [id number] [address] STATES OF [facility]#### 16510-5 ####[facility] LABORATORYCLIA [id number] [address] STATES OF [facility] [place] LABCLIA [id number] [place] [address] [place] Potassium [Moles/Vol] 4.0 mmol/L Normal 3.5-5.1 [facility] Comment on above: Order Comment: Speci men Type: BLOOD SPECIMENOrdering Facility: [facility] Address: [address] [place] [address] Performed By: #### 2 4323-8, 6-3 ####[facility] LABORATORYCLIA [id number] [place] [address] [place]#### 72127-3 ####[facility] LABORATORYCLIA [id number] [address] [place] LABCLIA [id number] [place] [address] [place] Protein [Mass/Vol] 6.8 g/dL Normal 6.0-8.5 [facility] Comment on above: Order Comment: Speci men Type: BLOOD SPECIMENOrdering Facility: [facility] Address: [address] [place] [id number] Performed By: #### 2 4323-8, 3015-3 ####[facility] LABORATORYCLIA [id number] [address]#### 40081-0 ####[facility] LABORATORYCLIA [id number] [place] [address] [facility] [place] LABCLIA [id number] [place], [place] [address] [place] [address] Sodium [Moles/Vol] 142 mmol/L Normal 136-145 [facility] Comment on above: Order Comment: Speci men Type: BLOOD SPECIMENOrdering Facility: [facility] Address: [address] [place], [place] [address] Performed By: #### 2 4323-8, 3 ####[facility] LABORATORYCLIA [id number] [address]#### 59121-8 ####[facility] LABORATORYCLIA [id number] [address] [place] LABCLIA [id number] [address] STATES [facility] Urea nitrogen [Mass/Vol] 9 mg/dL Normal 7-26 [facility] Comment on above: Order Comment: Speci men Type: BLOOD SPECIMENOrdering Facility: [facility] Address: [address] [place], [place] [address] Performed By: #### 2 4323-8, 3015-3 ####[facility] LABORATORYCLIA [id number] [address] [place]#### 29452-0 ####[facility] LABORATORYCLIA [id number] [place] [address] [facility] [place] LABCLIA [id number] [place] [address] [place] Lipid 1996 panelon 5 Cholesterol [Mass/Vol] 207 mg/dL High 0-199 [facility] Comment on above: Order Comment: Speci men Type: BLOOD SPECIMENOrdering Facility: [facility] Address: [address] [place] [address] Result Comment: <200 mg/dL, Desirable 200-239 mg/dL, Borderline high >239 mg/dL, High Performed By: #### 2 4323-8, 3016-3 ####[facility] LABORATORYCLIA [id number] [address] OF [place]#### 81227-1 ####[facility] LABORATORYCLIA [id number] [place] [address]87[address] [facility] [place] LABCLIA [id number] [place], [place] [address] [place] [address] Cholesterol in HDL [Mass/Vol] 39 mg/dL Low >40 [facility] Comment on above: Order Comment: Speci men Type: BLOOD SPECIMENOrdering Facility: [facility] Address: [address] [place] [address] Result Comment: 40-5 9 mg/dL, Acceptable >59 mg/dL, High: Negative risk factor for coronary heart disease <40 mg/dL, Low: Positive risk factor for coronary heart disease Performed By: #### 2 4323-8, 3016-3 ####[facility] LABORATORYCLIA [id number] [address] [place]#### 60965-3 ####[facility] LABORATORYCLIA [id number] [place] [address] [facility] [place] LABCLIA [id number] [address] Cholesterol in LDL [Mass/Vol] 150 mg/dL High 0-129 [facility] Comment on above: Order Comment: Speci men Type: BLOOD SPECIMENOrdering Facility: [facility] Address: [address] [place] [address] Result Comment: <100 mg/dL, Optimal 100-129 mg/dL, Near optimal/above optimal 130-159 mg/dL, Borderline high 160-189 mg/dL, High >189 mg/dL, Very high Secondary prevention optimal LDL Cholesterol levels are recommended to be <70 mg/dL LDL cholesterol is calculated using the Hudson-NIH equation. Performed By: #### 2 4323-8, 3015-3 ####[facility] LABORATORYCLIA [id number] [place] [address] [facility]#### 62681-5 ####[facility] LABORATORYCLIA [id number] [address] LABCLIA [id number] [address] Cholesterol in LDL/Cholesterol in HDL [Mass ratio] 3.85 {ratio} High <2.54 [facility] Comment on above: Order Comment: Speci men Type: BLOOD SPECIMENOrdering Facility: [facility] Address: [address] [place] [address] Result Comment: Refe bk: 1. National Cholesterol Education Program ATP III Guideline At-A-Glance Quick Desk Reference: National Heart, Lung, and Blood Forest. National Institutes of Health. 2001: NIH Publication No. 01-3305. 2. An International Atherosclerosis Society position paper: global recommendations for the management of dyslipidemia: executive summary, Atherosclerosis. 2014: 232(2):410-413. Performed By: #### 2 4323-8, 3015-3 ####[facility] LABORATORYCLIA [id number] [place] [address] [facility]#### 78223-0 ####[facility] LABORATORYCLIA [id number] [place] 67[address] [facility] [place] LABCLIA [id number] [place], [place] [address] [place] [address] Cholesterol in VLDL [Mass/Vol] 19 mg/dL Normal <30 [facility] Comment on above: Order Comment: Speci men Type: BLOOD SPECIMENOrdering Facility: [facility] Address: [address] [place] [address] Performed By: #### 2 4323-8, 3015-3 ####[facility] LABORATORYCLIA [id number] [address]#### 27716-7 ####[facility] LABORATORYCLIA [id number] [place] [address] [facility] [place] LABCLIA [id number] [place], [place] [address] [place] [address] Cholesterol non HDL [Mass/Vol] 168 mg/dL High <130 [facility] Comment on above: Order Comment: Speci men Type: BLOOD SPECIMENOrdering Facility: [facility] Address: [address] [place] [address] Result Comment: <130 mg/dL, Optimal 130-159 mg/dL, Near optimal/above optimal 160-189 mg/dL, Borderline high 190-219 mg/dL, High >219 mg/dL, Very high Secondary prevention optimal non HDL Cholesterol levels are recommended to be <100 mg/dL Performed By: #### 2 4323-8, 3 ####[facility] LABORATORYCLIA [id number] [address]#### 35970-6 ####[facility] LABORATORYCLIA [id number] [address] STATES OF AMERICAMER[place] LABCLIA [id number] [place], [place] [address] [place] [address] [place] Cholesterol.total/C holesterol in HDL [Mass ratio] 5.31 {ratio} High <5.10 [facility] Comment on above: Order Comment: Speci men Type: BLOOD SPECIMENOrdering Facility: [facility] Address: [address] [place], [place] [address] Performed By: #### 2 4323-8, 3015-3 ####[facility] LABORATORYCLIA [id number] [address] [place]#### 02059-8 ####[facility] LABORATORYCLIA [id number] [place] [address] [facility] [place] LABCLIA [id number] [place], [place] [address] [place] [address] FASTING TIME 12 hrs Normal [facility] Comment on above: Order Comment: Speci men Type: BLOOD SPECIMENOrdering Facility: [facility] Address: [address] [place] [address] Performed By: #### 2 4323-8, 3015-12 ####[facility] LABORATORYCLIA [id number] [address]#### 58986-7 ####[facility] LABORATORYCLIA [id number] [address] [place] LABCLIA [id number] [address] Triglyceride [Mass/Vol] 100 mg/dL Normal 30-149 [facility] Comment on above: Order Comment: Speci men Type: BLOOD SPECIMENOrdering Facility: [facility] Address: [address] [place] [address] Result Comment: <150 mg/dL, Normal 150-199 mg/dL, Borderline high 200-499 mg/dL, High >499 mg/dL, Very high Patients receiving either N-Acetylcysteine (NAC) or Metamizole prior to venipuncture, may have falsely depressed results. Performed By: #### 2 4323-8, 3015-12 ####[facility] LABORATORYCLIA [id number] [address]#### 14927-3 ####[facility] LABORATORYCLIA [id number] [address] [place] LABCLIA [id number] [place] [address] [place] TSH SerPl-aCncon 04-21-2025 TSH Qn 0.172 m[IU]/L Low 0.358-3.740 [facility] Comment on above: Order Comment: Speci men Type: BLOOD SPECIMENOrdering Facility: [facility] Address: [address] [place] [address] Result Comment: 3rd generation ultra sensitive TSH. Performed By: #### 2 4323-8, 3016-3 ####[facility] LABORATORYCLIA [id number] [place] [address] [facility]#### 69676-1 ####[facility] LABORATORYCLIA [id number] [place] [address] [facility] LABCLIA [id number] [address] CNOVon 10-07-2024 CNOV Office Visit (FAMMAS ) ----- SEGUNDOMEGAN MOTTAHARMEET Aldana ([id number]) 1965 Date Time Provider Department 10/07/24 8:00 AM JILL BULLOCK During your visit today, we recorded the following information about you: Temperature Pulse Respiration Blood pressure 97.9 degrees 69/minute 18/minute 126/84 Weight Height 112 kg 1.676 m Brain Henson LPN 10/07/2024 1:53 PM Signed Patient is in office for 6 month exam. Patient has no current complaints or concerns. Brain Henson LPN October 07, 2024 7:53 AM Jill Bullock MD 10/07/2024 1:53 PM Signed Subjective Veronica Del Angel is a 59 year old female.The patient presents today for follow-up for multiple medical problems. See list. Her chronic medical problems have been stable. Her blood pressure is under good control. She has no new complaints today. She is feeling well. Review of Systems Constitutional: Negative. HENT: Negative. Eyes: Negative. Respiratory: Negative. Cardiovascular: Negative. Gastrointestinal: Negative. Endocrine: Negative. Genitourinary: Negative. Musculoskeletal: Negative. Skin: Negative. Allergic/Immunologic: Negative. Neurological: Negative. Hematological: Negative. Psychiatric/Behavioral: Negative. 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 PAST MEDICAL HISTORY Diagnosis Date Abnormal Pap smear of cervix normal after 2011 Allergic rhinitis, cause unspecified Depressive disorder, not elsewhere classified Mixed hyperlipidemia Unspecified hypothyroidism FAMILY HISTORY Problem Relation Age of Onset other (endometrial cancer) Mother No Known Problems Father Mental illness Brother Dementia Maternal Grandmother Heart Maternal Grandmother Cancer Maternal Grandfather Emphysema Paternal Grandfather Social History Tobacco Use Smoking status: Never Passive exposure: Never Smokeless tobacco: Never Vaping Use Vaping status: Never Used Substance Use Topics Alcohol use: No Drug use: No ALLERGIES Allergen Reactions Amoxil [Amoxicillin] Rash, Itching MEDICATIONS: omega 7-lbj-ero-fish oil (FISH OIL) 60-90-500 mg cap Take by mouth. sertraline (ZOLOFT) 100 mg tablet Take 1 tablet by mouth once daily. rosuvastatin (CRESTOR) 10 mg tablet Take 1 tablet by mouth once daily. levothyroxine (LEVOXYL) 137 mcg tablet Take 1 tablet by mouth once daily. Allergies, past surgical history, family history and past medical history were reviewed per this encounter. Medications were reviewed and verified. 05/21/2024 10/07/2024 INTAKE PAIN ASSESSMENT Are you having pain associated with your visit today? No No If pain assessment is 0, no action needed. If pain assessment is positive, please see assessment and plain. Objective BP 126/84 (BP Site: Left Arm, BP Position: Sitting, BP Cuff Size: Large Adult) Pulse 69 Temp 36.6 ?C (97.9 ?F) (Temporal) Resp 18 Ht 167.6 cm (5' 6) Wt 112 kg (247 lb) LMP 12/09/2017 (Approximate) SpO2 99% BMI 39.87 kg/m? Physical Exam Vitals reviewed. Constitutional: Appearance: Normal appearance. HENT: Head: Normocephalic and atraumatic. Nose: Nose normal. Eyes: Extraocular Movements: Extraocular movements intact. Pupils: Pupils are equal, round, and reactive to light. Cardiovascular: Rate and Rhythm: Normal rate and regular rhythm. Pulmonary: Effort: Pulmonary effort is normal. Breath sounds: Normal breath sounds. Abdominal: General: Bowel sounds are normal. Palpations: Abdomen is soft. Musculoskeletal: General: Normal range of motion. Cervical back: Normal range of motion and neck supple. Skin: General: Skin is warm and dry. Capillary Refill: Capillary refill takes less than 2 seconds. Neurological: General: No focal deficit present. Mental Status: She is alert and oriented to person, place, and time. Mental status is at baseline. Psychiatric: Mood and Affect: Mood normal. Behavior: Behavior normal. Procedures Assessment and Plan Encounter Diagnosis ICD-10-CM 1. Pure hypercholesterolemia E78.00 COMPREHENSIVE METABOLIC PANEL LIPID PANEL BASIC Improved and stable on current medication. Recheck lipids 2. Acquired hypothyroidism E03.9 THYROID STIMULATING HORMONE TSH therapeutic. Recheck TSH. Continue levothyroxine. 3. Depressive disorder F32.A Improved and stable on current medication Continue present medications. Check labs as above. Monitor blood pressure regularly. Exercise as tolerated. Maintain good diet. Follow-up in 6 months. Jill Bullock MD October 07, 2024 October 07, 2024 Allergies As of Date: 10/07/2024 Noted Allergy Reaction AMOXIL (AMOXICILLIN) 07/07/2014 2 - Rash 9 - Itching Date Revie (more content not included)... Normal [facility] Comprehensive metabolic 2000 panelon 10-07-2024 Albumin [Mass/Vol] 3.5 g/dL 3.2 - 5.0 g/dL [facility] ALP [Catalytic activity/Vol] 98 U/L 45 - 117 U/L [facility] ALT [Catalytic activity/Vol] 48 U/L 13 - 61 U/L [facility] Comment on above: Results may be false ly depressed after the administration of Sulfasalazine and/or Sulfapyridine. Anion gap [Moles/Vol] 7 mmol/L 5 - 16 mmol/L [facility] AST [Catalytic activity/Vol] 32 U/L 8 - 34 U/L [facility] Comment on above: Results may be false ly depressed after the administration of Sulfasalazine and/or Sulfapyridine. Bilirubin [Mass/Vol] 1.1 mg/dL High 0.2 - 1.0 mg/dL [facility] Calcium [Mass/Vol] 10.0 mg/dL 8.5 - 10. 5 mg/dL [facility] Chloride [Moles/Vol] 106 mmol/L 98 - 107 mmol/L [facility] CO2 [Moles/Vol] 28 mmol/L 21 - 32 mmol/L [facility] Creatinine [Mass/Vol] 0.96 mg/dL High 0.51 - 0.95 mg/dL [facility] Comment on above: Patients receiving e ither N-Acetylcysteine (NAC) or Metamizole prior to venipuncture, may have falsely depressed results. GFR/1.73 sq M.predicted among non-blacks MDRD (S/P/Bld) [Vol rate/Area] 69 mL/min/{1.73_m2} - PINF [facility] Comment on above: Estimated Glomerular Filtration Rate (eGFR) is calculated using the 2020 CKD-EPI creatinine equation. This equation utilizes serum creatinine, sex, and age as parameters. The creatinine assay has traceable calibration to isotope dilution-mass spectrometry. Refer to KDIGO guidelines for clinical interpretation. In patients with unstable renal function, e.g. those with acute kidney injury, the eGFR may not accurately reflect actual GFR. Glucose [Mass/Vol] 99 mg/dL 70 - 100 mg/dL [facility] Comment on above: The [place] Diabete s Association (ADA) provides guidance for cutoff values for fasting glucose and random glucose. The ADA defines fasting as no caloric intake for at least 8 hours. Fasting plasma glucose results between 100 to 125 mg/dL indicate increased risk for diabetes (prediabetes). Fasting plasma glucose results greater than or equal to 126 mg/dL meet the criteria for diagnosis of diabetes. In the absence of unequivocal hyperglycemia, results should be confirmed by repeat testing. In a patient with classic symptoms of hyperglycemia or hyperglycemic crisis, random plasma glucose results greater than or equal to 200 mg/dL meet the criteria for diagnosis of diabetes. Reference: Standards of Medical Care in Diabetes 2016, [place] Diabetes Association. Diabetes Care. 2016.39(Suppl 1). Results may be falsely elevated after the administration of Sulfapyridine. Results may be falsely depressed after the administration of Sulfasalazine. Potassium [Moles/Vol] 4.1 mmol/L 3.5 - 5.1 mmol/L [facility] Protein [Mass/Vol] 7.1 g/dL 6.0 - 8.5 g/dL [facility] Sodium [Moles/Vol] 141 mmol/L 136 - 145 mmol/L [facility] Urea nitrogen [Mass/Vol] 10 mg/dL 7 - 26 mg/dL [facility] Albumin [Mass/Vol] 3.5 g/dL Normal 3.2-5.0 [facility] Comment on above: Order Comment: Speci men Type: BLOOD SPECIMEN Ordering Facility: [facility] Address: [address] [place] [address] Performed By: #### 3 016-3, 90290-2 #### [facility] CLIA [id number] [address] [place] [place] [address] #### 73726-2 #### [facility] CLIA [id number] [address] [place], [place] [address]N LAB CLIA [id number] [address] [place] [address] [place] ALP [Catalytic activity/Vol] 98 U/L Normal 45-117 [facility] Comment on above: Order Comment: Speci men Type: BLOOD SPECIMEN Ordering Facility: [facility] Address: [address] [place] [address] Performed By: #### 3 016-3, 87623-6 #### [facility] CLIA [id number] [address] [place] [address] [place] #### 23620-2 #### [facility] CLIA [id number] [address] [place], [place] [address] [place] [facility] CLIA [id number] [address] [place] [address] [place] ALT [Catalytic activity/Vol] 48 U/L Normal 13-61 [facility] Comment on above: Order Comment: Speci men Type: BLOOD SPECIMEN Ordering Facility: [facility] Address: [address], [place] [address] Result Comment: Resu lts may be falsely depressed after the administration of Sulfasalazine and/or Sulfapyridine. Performed By: #### 3 016-3, 63646-4 #### [facility] CLIA [id number] [address] [place] [address] [place] #### 33492-7 #### [facility] CLIA [id number] [address] [place], [place] [address] [facility] CLIA [id number] [address] [place] Anion gap [Moles/Vol] 7 mmol/L Normal 5-16 [facility] Comment on above: Order Comment: Speci men Type: BLOOD SPECIMEN Ordering Facility: [facility] Address: [address] [place] [address] Performed By: #### 3 016-3, 93256-5 #### [facility] CLIA [id number] [address] [place] [address] #### 83564-5 #### [facility] CLIA [id number] [address] [place], [place] [address] LAB CLIA [id number] [facility] STATES [facility] AST [Catalytic activity/Vol] 32 U/L Normal 8-34 [facility] Comment on above: Order Comment: Speci men Type: BLOOD SPECIMEN Ordering Facility: [facility] Address: [address] [place] [address] Result Comment: Resu lts may be falsely depressed after the administration of Sulfasalazine and/or Sulfapyridine. Performed By: #### 3 016-3, 94302-0 #### [facility] CLIA [id number] [address] [place] [address] [place] #### 47244-9 #### [facility] CLIA [id number] [address] [place], [place] [address] [facility] CLIA [id number] [address] [place] [address] [place] Bilirubin [Mass/Vol] 1.1 mg/dL High 0.2-1.0 [facility] Comment on above: Order Comment: Speci men Type: BLOOD SPECIMEN Ordering Facility: [facility] Address: [address] [place] [address] Performed By: #### 3 016-3, 63243-1 #### [facility] CLIA [id number] [address] [place] [address] [place] #### 47508-3 #### [facility] CLIA [id number] [address] [place], [place] [address] [place] [facility] CLIA [id number] [address] [place] [address] [place] Calcium [Mass/Vol] 10.0 mg/dL Normal 8.5-10.5 [facility] Comment on above: Order Comment: Speci men Type: BLOOD SPECIMEN Ordering Facility: [facility] Address: [address] [place] [address] Performed By: #### 3 016-3, 97546-1 #### [facility] CLIA [id number] [address] [place] [address] [place] #### 45785-6 #### [facility] CLIA [id number] [address] [place], [place] [address] [place] [facility] CLIA [id number] [address] [place] [address] [place] Chloride [Moles/Vol] 106 mmol/L Normal 98-107 [facility] Comment on above: Order Comment: Speci men Type: BLOOD SPECIMEN Ordering Facility: [facility] Address: [facility] [place] [address] Performed By: #### 3 016-3, 28483-1 #### [facility] CLIA [id number] [address] [place], [place] [address] [place] #### 11853-3 #### [facility] CLIA [id number] [address] [place], [place] [address] [facility] CLIA [id number] [address] STATES [place] CO2 [Moles/Vol] 28 mmol/L Normal 21-32 [facility] Comment on above: Order Comment: Speci men Type: BLOOD SPECIMEN Ordering Facility: [facility] Address: [address] [place] [address] Performed By: #### 3 016-3, 17195-1 #### [facility] CLIA [id number] [address] [place] [address] #### 48873-0 #### [facility] CLIA [id number] [address] [place], [place] [address] CLIA [id number] [address] [place] [address] [place] [facility] Creatinine [Mass/Vol] 0.96 mg/dL High 0.51-0.95 [facility] Comment on above: Order Comment: Speci men Type: BLOOD SPECIMEN Ordering Facility: [facility] Address: [address] [place] [address] Result Comment: Taylor ents receiving either N-Acetylcysteine (NAC) or Metamizole prior to venipuncture, may have falsely depressed results. Performed By: #### 3 016-3, 49417-1 #### [facility] CLIA [id number] [address] [place] [address] #### 63781-8 #### [facility] CLIA [id number] [address] [place], [place] [address] CLIA [id number] [address] Creatinine and Glomerular filtration rate.predicted panel (S/P/Bld) 69 mL/min/1.73m??? Normal >=60 [facility] Comment on above: Order Comment: Sonali jarvis Type: BLOOD SPECIMEN Ordering Facility: [facility] Address: [address] [place] [id number] Result Comment: Natalie mated Glomerular Filtration Rate (eGFR) is calculated using the 2020 CKD-EPI creatinine equation. This equation utilizes serum creatinine, sex, and age as parameters. The creatinine assay has traceable calibration to isotope dilution-mass spectrometry. Refer to KDIGO guidelines for clinical interpretation. In patients with unstable renal function, e.g. those with acute kidney injury, the eGFR may not accurately reflect actual GFR. Performed By: #### 3 016-3, 99574-8 #### [facility] CLIA [id number] [address] [place], [place] [address] [facility] #### 21435-7 #### [facility] CLIA [id number] [address] [place] [address] [facility] CLIA [id number] [address] [place] [address] [facility] Glucose [Mass/Vol] 99 mg/dL Normal 70-100 [facility] Comment on above: Order Comment: Sonali jarvis Type: BLOOD SPECIMEN Ordering Facility: [facility] Address: [address] [place] [address] Result Comment: The [place] Diabetes Association (ADA) provides guidance for cutoff values for fasting glucose and random glucose. The ADA defines fasting as no caloric intake for at least 8 hours. Fasting plasma glucose results between 100 to 125 mg/dL indicate increased risk for diabetes (prediabetes). Fasting plasma glucose results greater than or equal to 126 mg/dL meet the criteria for diagnosis of diabetes. In the absence of unequivocal hyperglycemia, results should be confirmed by repeat testing. In a patient with classic symptoms of hyperglycemia or hyperglycemic crisis, random plasma glucose results greater than or equal to 200 mg/dL meet the criteria for diagnosis of diabetes. Reference: Standards of Medical Care in Diabetes 2016, [place] Diabetes Association. Diabetes Care. 2016.39(Suppl 1). Results may be falsely elevated after the administration of Sulfapyridine. Results may be falsely depressed after the administration of Sulfasalazine. Performed By: #### 3 016-3, #### [facility] CLIA [id number] [address] [place] [address] [place] #### 59718-6 #### [facility] CLIA [id number] [address] [place] [address] [place] [facility] CLIA [id number] [address] [place] [address] [place] Potassium [Moles/Vol] 4.1 mmol/L Normal 3.5-5.1 [facility] Comment on above: Order Comment: Speci men Type: BLOOD SPECIMEN Ordering Facility: [facility] Address: [address] [place] [address] Performed By: #### 3 3, #### [facility] CLIA [id number] [address] [place], [place] [address] [place] #### 25796-4 #### [facility] CLIA [id number] [address] [place] [address] [place] [facility] CLIA [id number] [address] [place] [address] [place] Protein [Mass/Vol] 7.1 g/dL Normal 6.0-8.5 [facility] Comment on above: Order Comment: Speci men Type: BLOOD SPECIMEN Ordering Facility: [facility] Address: [address] [place], [place] [address] [address] Performed By: #### 3 016-3, #### [facility] CLIA [id number] [address] [place] [address] [place] #### 83788-1 #### [facility] CLIA [id number] [address] [place] [address] [place] [facility] CLIA [id number] [address] [place] [address] [place] Sodium [Moles/Vol] 141 mmol/L Normal 136-145 [facility] Comment on above: Order Comment: Speci men Type: BLOOD SPECIMEN Ordering Facility: [facility] Address: [address] [place] [address] Performed By: #### 3 016-3, 04829-0 #### [facility] CLIA [id number] [address] [place] [address] [place] #### 78595-2 #### [facility] CLIA [id number] [address] [place] [address] [place] [facility] CLIA [id number] [address] STATES [facility] Urea nitrogen [Mass/Vol] 10 mg/dL Normal 05-22 [facility] Comment on above: Order Comment: Speci men Type: BLOOD SPECIMEN Ordering Facility: [facility] Address: [address] [place] [address] Performed By: #### 3 016-3, 94188-9 #### [facility] CLIA [id number] [address] [place] [address] [place] #### 62409-1 #### [facility] CLIA [id number] [address] [place] [address] STATES [place] [facility] CLIA [id number] [address] [place] Lipid 1996 panelon 4 Cholesterol [Mass/Vol] 201 mg/dL High 0 - 199 mg/dL [facility] Comment on above: <200 mg/dL, Desirabl e 200-239 mg/dL, Borderline high >239 mg/dL, High Cholesterol in HDL [Mass/Vol] 42 mg/dL 40 - PINF mg/dL [facility] Comment on above: 40-59 mg/dL, Accepta ble >59 mg/dL, High: Negative risk factor for coronary heart disease <40 mg/dL, Low: Positive risk factor for coronary heart disease Cholesterol in LDL [Mass/Vol] 136 mg/dL High 0 - 129 mg/dL [facility] Comment on above: <100 mg/dL, Optimal 100-129 mg/dL, Near optimal/above optimal 130-159 mg/dL, Borderline high 160-189 mg/dL, High >189 mg/dL, Very high Secondary prevention optimal LDL Cholesterol levels are recommended to be < 70 mg/dL Cholesterol in LDL/Cholesterol in HDL [Mass ratio] 3.24 {ratio} High NINF - 2.54 [facility] Comment on above: Reference: 1. National Cholesterol Education Program ATP III Guideline At-A-Glance Quick Desk Reference: National Heart, Lung, and Blood Forest. National Institutes of Health. 2001: NIH Publication No. 01-3305. 2. An International Atherosclerosis Society position paper: global recommendations for the management of dyslipidemia: executive summary, Atherosclerosis. 2014: 232(2):410-413. Cholesterol in VLDL [Mass/Vol] 23 mg/dL NINF - 30 mg/dL [facility] Cholesterol non HDL [Mass/Vol] 159 mg/dL High NINF - 130 mg/dL [facility] Comment on above: <130 mg/dL, Optimal 130-159 mg/dL, Near optimal/above optimal 160-189 mg/dL, Borderline high 190-219 mg/dL, High >219 mg/dL, Very high Secondary prevention optimal non HDL Cholesterol levels are recommended to be <100 mg/dL Cholesterol.total/C holesterol in HDL [Mass ratio] 4.79 {ratio} NINF - 5.10 [facility] Fasting Time 12 hrs [facility] Triglyceride [Mass/Vol] 114 mg/dL 30 - 149 mg/dL [facility] Comment on above: <150 mg/dL, Normal 150-199 mg/dL, Borderline high 200-499 mg/dL, High >499 mg/dL, Very high Patients receiving either N-Acetylcysteine (NAC) or Metamizole prior to venipuncture, may have falsely depressed results. Cholesterol [Mass/Vol] 201 mg/dL High 0-199 [facility] Comment on above: Order Comment: Speci men Type: BLOOD SPECIMEN Ordering Facility: [facility] Address: [address] [place] [address] Result Comment: <200 mg/dL, Desirable 200-239 mg/dL, Borderline high >239 mg/dL, High Performed By: #### 3 016-3, 31876-5 #### [facility] CLIA [id number] [address] [place] [address] [place] #### 36951-6 #### [facility] CLIA [id number] [address] [place] [address] [facility] CLIA [id number] [address] [place], [place] [address] [place] [address] Cholesterol in HDL [Mass/Vol] 42 mg/dL Normal >40 [facility] Comment on above: Order Comment: Speci men Type: BLOOD SPECIMEN Ordering Facility: [facility] Address: [address] [place] [address] Result Comment: 40-5 9 mg/dL, Acceptable >59 mg/dL, High: Negative risk factor for coronary heart disease <40 mg/dL, Low: Positive risk factor for coronary heart disease Performed By: #### 3 016-3, 83674-5 #### [facility] CLIA [id number] [address] [place] [address] [place] #### 08289-4 #### [facility] CLIA [id number] [address] [place] [address] [facility] CLIA [id number] [address] Cholesterol in LDL [Mass/Vol] 136 mg/dL High 0-129 [facility] Comment on above: Order Comment: Speci men Type: BLOOD SPECIMEN Ordering Facility: [facility] Address: [address] [place] [address] Result Comment: <100 mg/dL, Optimal 100-129 mg/dL, Near optimal/above optimal 130-159 mg/dL, Borderline high 160-189 mg/dL, High >189 mg/dL, Very high Secondary prevention optimal LDL Cholesterol levels are recommended to be < 70 mg/dL Performed By: #### 3 016-3, 50477-0 #### [facility] [facility] CLIA [id number] [address] [place] [address] [place] #### [id number] #### [facility] CLIA [id number] [address] [place], [place] [address] LAB CLIA [id number] [address] Cholesterol in LDL/Cholesterol in HDL [Mass ratio] 3.24 {ratio} High <2.54 [facility] Comment on above: Order Comment: Speci men Type: BLOOD SPECIMEN Ordering Facility: [facility] Address: [address] [place] [address] Result Comment: Refe bk: 1. National Cholesterol Education Program ATP III Guideline At-A-Glance Quick Desk Reference: National Heart, Lung, and Blood Forest. National Institutes of Health. 2001: NIH Publication No. 01-3305. 2. An International Atherosclerosis Society position paper: global recommendations for the management of dyslipidemia: executive summary, Atherosclerosis. 2014: 232(2):410-413. Performed By: #### 3 016-3, 11026-6 #### [facility] CLIA [id number] [address] [place] [address] [place] #### 08715-4 #### [facility] CLIA [id number] [address] [place], [place] [address] LAB CLIA [id number] [facility] Cholesterol in VLDL [Mass/Vol] 23 mg/dL Normal <30 [facility] Comment on above: Order Comment: Speci men Type: BLOOD SPECIMEN Ordering Facility: [facility] Address: [address] [place] [address] Performed By: #### 3 016-3, 22113-9 #### [facility] CLIA [id number] [address] [place] [address] [place] #### [id number] #### [facility] CLIA [id number] [address] [place] [address] STATES [facility] CLIA [id number] [address] [place] [address] [place] Cholesterol non HDL [Mass/Vol] 159 mg/dL High <130 [facility] Comment on above: Order Comment: Speci men Type: BLOOD SPECIMEN Ordering Facility: [facility] Address: [address] [place], [place] [id number] Result Comment: <130 mg/dL, Optimal 130-159 mg/dL, Near optimal/above optimal 160-189 mg/dL, Borderline high 190-219 mg/dL, High >219 mg/dL, Very high Secondary prevention optimal non HDL Cholesterol levels are recommended to be <100 mg/dL Performed By: #### 3 016-3, 51520-6 #### [facility] CLIA [id number] [address] [place] [address] OF [facility] #### [id number] #### [facility] CLIA [id number] [address] [place], [place] [address] [facility] CLIA [id number] [address] [place] Cholesterol.total/C holesterol in HDL [Mass ratio] 4.79 {ratio} Normal <5.10 [facility] Comment on above: Order Comment: Speci men Type: BLOOD SPECIMEN Ordering Facility: [facility] Address: [address] [place] [address] Performed By: #### 3 016-3, 00399-2 #### [facility] CLIA [id number] [address] [place] [address] [place] #### [id number] #### [facility] CLIA [id number] [address] [place], [place] [address] [facility] CLIA [id number] [address] [place], [place] [address] [place] [address] OF [facility] FASTING TIME 12 hrs Normal [facility] Comment on above: Order Comment: Speci men Type: BLOOD SPECIMEN Ordering Facility: [facility] Address: [address] [place], [place] [address] Performed By: #### 3 016-3, 10137-7 #### [facility] CLIA [id number] [address] [place], [place] [address] [facility] [place] #### [id number] #### [facility] CLIA [id number] [address] [place], [place] [address] [facility] CLIA [id number] [address] [place] [address] [place] Triglyceride [Mass/Vol] 114 mg/dL Normal 30-149 [facility] Comment on above: Order Comment: Speci men Type: BLOOD SPECIMEN Ordering Facility: [facility] Address: [address] [place] [address] Result Comment: <150 mg/dL, Normal 150-199 mg/dL, Borderline high 200-499 mg/dL, High >499 mg/dL, Very high Patients receiving either N-Acetylcysteine (NAC) or Metamizole prior to venipuncture, may have falsely depressed results. Performed By: #### 3 016-3, 97711-5 #### [facility] CLIA [id number] [address] [place] [address] [place] #### [id number] #### [facility] CLIA [id number] [address] [place], [place] [address] [place] [facility] CLIA [id number] [address] [place] [address] [facility] No Panel Informationon 10-07 Interpretation and review of laboratory results Abnormal [facility] THYROID STIMULATING HORMONEo n 10-07-2024 TSH Qn 2.259 m[IU]/L [facility] Comment on above: 3rd generation ultra sensitive TSH. TSH Qnon 10-07-2024 Interpretation and review of laboratory results Normal [facility] TSH SerPl-aCncon 10-07-2024 TSH Qn 2.259 m[IU]/L Normal 0.358-3.740 [facility] Comment on above: Order Comment: Speci men Type: BLOOD SPECIMEN Ordering Facility: [facility] Address: [address] [place] [address] Result Comment: 3rd generation ultra sensitive TSH. Performed By: #### 3 016-3, 81579-8 #### [facility] CLIA [id number] [address] [place] [address] [facility] #### [id number] #### [facility] CLIA [id number] [address] [place] [address] [facility] CLIA [id number] [address] [place] [address] [place] [facility] CBC W Auto Differential pane l (Bld)Ordered By: Nu Nugent on 04-01-2024 Basophils (Bld) [#/Vol] 0.05 10*3/uL [facility] Basophils/100 WBC (Bld) 0.8 % [facility] Differential cell count method Nom (Bld) Auto [facility] Eosinophils (Bld) [#/Vol] 0.11 10*3/uL [facility] Eosinophils/100 WBC (Bld) 1.8 % [facility] Erythrocyte distribution width (RBC) [Ratio] 12.8 % 11.5 - 15.0 % [facility] Hematocrit (Bld) [Volume fraction] 44.2 % 36.0 - 46.0 % [facility] Hemoglobin (Bld) [Mass/Vol] 14.3 g/dL 11.5 - 15.5 g/dL [facility] Immature granulocytes (Bld) [#/Vol] NINF [facility] Immature granulocytes/100 WBC (Bld) 0.2 % [facility] Lymphocytes (Bld) [#/Vol] 2.50 10*3/uL [facility] Lymphocytes/100 WBC (Bld) 41.9 % [facility] MCH (RBC) [Entitic mass] 28.4 pg 26.0 - 34.0 pg [facility] MCHC (RBC) [Mass/Vol] 32.4 g/dL 30.5 - 36.0 g/dL [facility] MCV (RBC) [Entitic vol] 87.7 fL 80.0 - 100.0 fL [facility] Monocytes (Bld) [#/Vol] 0.49 10*3/uL [facility] Monocytes/100 WBC (Bld) 8.2 % [facility] Neutrophils (Bld) [#/Vol] 2.80 10*3/uL [facility] Neutrophils/100 WBC (Bld) 47.1 % [facility] Platelet mean volume (Bld) [Entitic vol] 10.1 fL 9.0 - 12.7 fL [facility] Platelets (Bld) [#/Vol] 245 10*3/uL [facility] RBC (Bld) [#/Vol] 5.04 10*6/uL 3.90 - 5.2 0 m/uL [facility] WBC (Bld) [#/Vol] 5.96 10*3/uL [facility] Comprehensive metabolic 2000 panelon 09-26-2022 Albumin [Mass/Vol] 3.9 g/dL 3.2 - 5.0 g/dL [facility] ALP [Catalytic activity/Vol] 102 U/L 45 - 117 U/L [facility] ALT [Catalytic activity/Vol] 30 U/L 13 - 61 U/L [facility] Anion gap [Moles/Vol] 9 mmol/L 5 - 16 mmol/L [facility] AST [Catalytic activity/Vol] 30 U/L 8 - 34 U/L [facility] Bilirubin [Mass/Vol] 1.2 mg/dL High 0.2 - 1.0 mg/dL [facility] Calcium [Mass/Vol] 9.7 mg/dL 8.5 - 10. 5 mg/dL [facility] Chloride [Moles/Vol] 105 mmol/L 98 - 107 mmol/L [facility] CO2 [Moles/Vol] 27 mmol/L 21 - 32 mmol/L [facility] Creatinine [Mass/Vol] 0.90 mg/dL 0.51 - 0.95 mg/dL [facility] Estimated Glomerular Filtration Rate 75 mL/min/1.73m >=60 mL/min/1.73m [facility] Glucose [Mass/Vol] 107 mg/dL High 70 - 100 mg/dL [facility] Potassium [Moles/Vol] 4.4 mmol/L 3.5 - 5.1 mmol/L [facility] Protein [Mass/Vol] 7.2 g/dL 6.0 - 8.5 g/dL [facility] Sodium [Moles/Vol] 141 mmol/L 136 - 145 mmol/L [facility] Urea nitrogen [Mass/Vol] 14 mg/dL 7 - 26 mg/dL [facility] Lipid 1996 panelon 2 Cholesterol [Mass/Vol] 237 mg/dL High 0 - 199 mg/dL [facility] Cholesterol in HDL [Mass/Vol] 51 mg/dL >40 mg/dL [facility] Cholesterol in LDL [Mass/Vol] 166 mg/dL High 0 - 129 mg/dL [facility] Cholesterol in LDL/Cholesterol in HDL [Mass ratio] 3.25 {ratio} High <2.54 [facility] Cholesterol in VLDL [Mass/Vol] 20 mg/dL <30 mg/dL [facility] Cholesterol non HDL [Mass/Vol] 186 mg/dL High <130 mg/dL [facility] Cholesterol.total/C holesterol in HDL [Mass ratio] 4.65 {ratio} <5.10 [facility] Fasting Time 12 hrs [facility] Triglyceride [Mass/Vol] 101 mg/dL 30 - 149 mg/dL [facility] TSH BLDon 09-26-2022 TSH Qn 2.850 m[IU]/L 0.358 - 3.740 mIU/L [facility] CBC W/DIFFon 03-14-2022 BASO ABS 0.10 K/CU MM Normal 0-0.2 [facility] Comment on above: Performed By: #### L 200.06788 #### [facility] [address] [place] [address] Basophils/100 WBC (Bld) 0.8 % Normal 0-2 [facility] Comment on above: Performed By: #### L 200.38135 #### [facility] [address] [place] [address] EOS ABS 0.10 K/CU MM Normal 0-0.5 [facility] Comment on above: Performed By: #### L 200.62130 #### [facility] [address] [place], [place] [address] Eosinophils/100 WBC (Bld) 1.1 % Normal 0-5 [facility] Comment on above: Performed By: #### L 200.69402 #### [facility] [address] [place], [place] [address] Erythrocyte distribution width (RBC) [Ratio] 13.2 % Normal 11-14.5 [facility] Comment on above: Performed By: #### L 200.15074 #### [facility] [address] [place] [address]# [phone] Hematocrit (Bld) [Volume fraction] 44.3 % Normal 35.0-47.0 [facility] Comment on above: Performed By: #### L 200.18470 #### [facility] [address] [place] [address]# [phone] Hemoglobin (Bld) [Mass/Vol] 14.5 g/dL Normal 11.5-15.5 [facility] Comment on above: Performed By: #### L 200.78139 #### [facility] [address] [place] [address]# [phone] IMMATR GRAN ABS 0.00 K/CU MM Normal Less than 2 [facility] Comment on above: Performed By: #### L 200.89192 #### [facility] [address] [place] [address] IMMATURE GRAN % 0.3 % Normal Less than 2 [facility] Comment on above: Performed By: #### L 200.83365 #### [facility] [address] [place] [address] LYMPH ABS 2.90 K/CU MM Normal 0.9-4.4 [facility] Comment on above: Performed By: #### L 200.62506 #### [facility] [address] [place] [address] Lymphocytes/100 WBC (Bld) 39.4 % Normal 20-40 [facility] Comment on above: Performed By: #### L 200.72674 #### [facility] [address] [place] [address] MCHC (RBC) [Mass/Vol] 32.7 g/dL Normal 32.0-36.0 [facility] Comment on above: Performed By: #### L 200.32651 #### [facility] [address] [place] [address] MCV (RBC) [Entitic vol] 87.2 fL Normal 80.0-99.0 [facility] Comment on above: Performed By: #### L 200.97476 #### [facility] [address] [place] [address] MONO ABS 0.60 K/CU MM Normal 0.1-1.1 [facility] Comment on above: Performed By: #### L 200.03733 #### [facility] [address] [place] [address] Monocytes/100 WBC (Bld) 7.6 % Normal 2-10 [facility] Comment on above: Performed By: #### L 200.94399 #### [facility] [address] [place] [address] NEUTROPHIL ABS 3.80 K/CU MM Normal 2.0-8.3 [facility] Comment on above: Performed By: #### L 200.41565 #### [facility] [address] [place] [address] Neutrophils/100 WBC (Bld) 50.8 % Normal 45-75 [facility] Comment on above: Performed By: #### L 200.56462 #### [facility] [address] [place] [address] Nucleated RBC/100 WBC (Bld) [Ratio] 0.0 % Normal Less than 1 [facility] Comment on above: Performed By: #### L 200.13924 #### [facility] [address] [place] [address] Platelet mean volume (Bld) [Entitic vol] 11.2 fL Normal 9.4-12.4 [facility] Comment on above: Performed By: #### L 200.23535 #### [facility] [address] [place] [address] PLT 270 K/CU MM Normal 150-450 [facility] Comment on above: Performed By: #### L 200.80254 #### [facility] [address] [place] [address] RBC 5.08 M/CU MM Normal 3.90-5.30 [facility] Comment on above: Performed By: #### L 200.84375 #### [facility] [address] [place], [place] [address] WBC 7.5 K/CUMM Normal 4.5-11.0 [facility] Comment on above: Performed By: #### L 200.67454 #### [facility] [address] [place] [address] CMPon 03-14-2022 Albumin [Mass/Vol] 3.5 g/dL Normal 3.2-5.0 [facility] Comment on above: Performed By: #### L 500.66092, L500.26130, L500.13563, L500.83810 #### [facility] [address] [place] [address] Albumin/Globulin [Mass ratio] 1.1 {ratio} Normal 0.8-2.0 [facility] Comment on above: Performed By: #### L 500.34585, L500.73470, L500.51873, L500.96045 #### [facility] [address] [place] [address] ALK PHOS 93 U/L Normal 45-117 [facility] Comment on above: Performed By: #### L 500.83233, L500.40523, L500.88405, L500.94705 #### [facility] [place] [id number] ALT [Catalytic activity/Vol] 20 U/L Normal 13-61 [facility] Comment on above: Result Comment: RESU LTS MAY BE FALSELY DEPRESSED AFTER THE ADMINISTRATION OF SULFASALAZINE AND/OR SULFAPYRIDINE. Performed By: #### L 500.30109, L500.41968, L500.05105, L500.13579 #### [facility] [address] [place] [address] Anion gap [Moles/Vol] 3 mmol/L Low 5-16 [facility] Comment on above: Performed By: #### L 500.48806, L500.61284, L500.26827, L500.14979 #### [facility] [address] [place] [address] AST [Catalytic activity/Vol] 22 U/L Normal 8-34 [facility] Comment on above: Result Comment: RESU LTS MAY BE FALSELY DEPRESSED AFTER THE ADMINISTRATION OF SULFASALAZINE AND/OR SULFAPYRIDINE. Performed By: #### L 500.38648, L500.98911, L500.34080, L500.68737 #### [facility] [address] [place] [address] BILI TOTAL 0.80 MG/DL Normal 0.2-1.0 [facility] Comment on above: Performed By: #### L 500.97897, L500.76982, L500.55239, L500.79344 #### [facility] [address] [place] [address] Calcium [Mass/Vol] 9.6 mg/dL Normal 8.5-10.5 [facility] Comment on above: Result Comment: NOTE NEW NORMAL RANGE DUE TO REAGENT CHANGE Performed By: #### L 500.06348, L500.93633, L500.42477, L500.03128 #### [facility] [place] [address] Chloride [Moles/Vol] 107 mmol/L Normal 98-107 [facility] Comment on above: Performed By: #### L 500.19172, L500.99598, L500.70926, L500.90955 #### [facility] [address] [place] [address] CO2 [Moles/Vol] 31.0 mmol/L Normal 21-32 [facility] Comment on above: Performed By: #### L 500.55149, L500.87178, L500.18484, L500.32259 #### [facility] [address] [place] [address] Creatinine [Mass/Vol] 0.88 mg/dL Normal 0.510-0.950 [facility] Comment on above: Result Comment: [place] ents receiving either N-Acetylcysteine (NAC) or Metamizole prior to venipuncture, may have falsely depressed results. Performed By: #### L 500.52828, L500.94757, L500.08012, L500.43038 #### [facility] [address] [place] [address] Globulin (S) [Mass/Vol] 3.1 g/dL Normal 2.2-4.2 [facility] Comment on above: Performed By: #### L 500.05249, L500.70647, L500.17391, L500.84475 #### [facility] [address] [place], [place] [address] Glucose [Mass/Vol] 92 mg/dL Normal 70-100 [facility] Comment on above: Result Comment: 70-1 00- Normal Fasting; 100-125 Impaired Fasting; greater than 126 on more than one result- Diabetes. ADA guidelines. Results may be falsely elevated after the administration of Sulfapyridine. Results may be falsely depressed after the administration of Sulfasalazine. Performed By: #### L 500.60335, L500.19063, L500.62682, L500.29627 #### [facility] [address] [place] [address] Potassium [Moles/Vol] 4.0 mmol/L Normal 3.5-5.1 [facility] Comment on above: Performed By: #### L 500.57015, L500.24839, L500.95310, L500.60156 #### [facility] [address] [place] [address] Protein [Mass/Vol] 6.6 g/dL Normal 6.0-8.5 [facility] Comment on above: Performed By: #### L 500.73014, L500.13412, L500.25419, L500.57465 #### [facility] [address] [place] [address] Sodium [Moles/Vol] 140 mmol/L Normal 136-145 [facility] Comment on above: Performed By: #### L 500.62724, L500.14661, L500.67486, L500.52345 #### [facility] [address] [place] [address] Urea nitrogen [Mass/Vol] 11 mg/dL Normal 7-26 [facility] Comment on above: Performed By: #### L 500.89611, L500.24656, L500.81715, L500.03479 #### [facility] [address] [place] [address] Urea nitrogen/Creatinine [Mass ratio] 12 mg/mg Low 15-24 [facility] Comment on above: Performed By: #### L 500.14744, L500.22159, L500.78120, L500.93732 #### [facility] [address] [place] [address] GFR ESTon 03-14-2022 IF AMER Greater than 60 Normal [facility] Comment on above: Performed By: #### L 500.36451, L500.28632, L500.84934, L500.48890 #### [facility] [address] [place] [address] IF non-AFR AMER Greater than 60 Normal [facility] Comment on above: Performed By: #### L 500.58276, L500.34562, L500.22227, L500.56304 #### [facility] [address] [place] [address] LIPIDon 03-14-2022 CHOL 222 MG/dL High 0-199 [facility] Comment on above: Performed By: #### L 500.13409, L500.52632, L500.63941, L500.47264 #### [facility] [address] [place] [address] Cholesterol in HDL [Mass/Vol] 50 mg/dL Normal GREATER THAN 40 [facility] Comment on above: Result Comment: [place] ents receiving Metamizole prior to venipuncture, may have falsely depressed results. Performed By: #### L 500.54398, L500.56255, L500.93677, L500.59284 #### [facility] [address] [place] [address] Cholesterol in LDL [Mass/Vol] 151 mg/dL Normal [facility] Comment on above: Result Comment: ___C HOLESTEROL/HDL RATIO RISK___ CHD RISK = Total CHOL LDL HDL (CHOL/HDL) Recommended <200 <130 >40 <3.4 Borderline 200-239 130-159 3.4-4.99 High >240 >160 >5.0 Performed By: #### L 500.36923, L500.06844, L500.00182, L500.66982 #### [facility] [address] [place] [address] Triglyceride [Mass/Vol] 109 mg/dL Normal 30-149 [facility] Comment on above: Result Comment: [place] ents receiving either N-Acetylcysteine (NAC) or Metamizole prior to venipuncture, may have falsely depressed results. Performed By: #### L 500.95518, L500.02854, L500.04454, L500.56506 #### [facility] [place] [address] TSHon 03-14-2022 TSH 0.377 UIU/ML Normal 0.358-3.740 [facility] Comment on above: Result Comment: 3rd generation ultra sensitive TSH Performed By: #### L 500.10324, L500.68164, L500.63312, L500.24671 #### [facility] [address] [place] [address] LIPIDon 09-11-2021 CHOL 160 MG/dL Normal 0-199 [facility] Comment on above: Performed By: #### L 500.84052, L500.59782, L500.67863 #### [facility] [address] [place] [address] Cholesterol in HDL [Mass/Vol] 50 mg/dL Normal GREATER THAN 40 [facility] Comment on above: Result Comment: [place] ents receiving Metamizole prior to venipuncture, may have falsely depressed results. Performed By: #### L 500.77689, L500.70547, L500.03929 #### [facility] [address] [place] [address] Cholesterol in LDL [Mass/Vol] 91 mg/dL Normal [facility] Comment on above: Result Comment: ___C HOLESTEROL/HDL RATIO RISK___ CHD RISK = Total CHOL LDL HDL (CHOL/HDL) Recommended <200 <130 >40 <3.4 Borderline 200-239 130-159 3.4-4.99 High >240 >160 >5.0 Performed By: #### L 500.49943, L500.95461, L500.97871 #### [facility] [address] [place] [id number] Triglyceride [Mass/Vol] 95 mg/dL Normal 30-149 [facility] Comment on above: Result Comment: Taylor ents receiving either N-Acetylcysteine (NAC) or Metamizole prior to venipuncture, may have falsely depressed results. Performed By: #### L 500.92411, L500.78401, L500.70411 #### [facility] [address] [place] [address] LIVERon 09-11-2021 Albumin [Mass/Vol] 3.8 g/dL Normal 3.2-5.0 [facility] Comment on above: Performed By: #### L 500.37710, L500.12138, L500.53153 #### [facility] [address] [place], [place] [id number] Albumin/Globulin [Mass ratio] 1.2 {ratio} Normal 0.8-2.0 [facility] Comment on above: Performed By: #### L 500.32173, L500.43253, L500.24826 #### [facility] [address] [place], [place] [address] ALK PHOS 99 U/L Normal 45-117 [facility] Comment on above: Performed By: #### L 500.51997, L500.73801, L500.57451 #### [facility] [address] [place] [id number] ALT [Catalytic activity/Vol] 24 U/L Normal 13-61 [facility] Comment on above: Result Comment: RESU LTS MAY BE FALSELY DEPRESSED AFTER THE ADMINISTRATION OF SULFASALAZINE AND/OR SULFAPYRIDINE. Performed By: #### L 500.55910, L500.09657, L500.03805 #### [facility] [place] [id number] AST [Catalytic activity/Vol] 25 U/L Normal 8-34 [facility] Comment on above: Result Comment: RESU LTS MAY BE FALSELY DEPRESSED AFTER THE ADMINISTRATION OF SULFASALAZINE AND/OR SULFAPYRIDINE. Performed By: #### L 500.93259, L500.02846, L500.47318 #### [facility] [address] [place] [address] BILI DIRECT 0.3 MG/DL Normal 0.00-0.36 [facility] Comment on above: Result Comment: NOTE NEW NORMAL RANGE DUE TO REAGENT CHANGE Performed By: #### L 500.61272, L500.95034, L500.20142 #### [facility] [address] [place] [address] BILI TOTAL 1.00 MG/DL Normal 0.2-1.0 [facility] Comment on above: Performed By: #### L 500.55213, L500.63005, L500.45005 #### [facility] [address] [place], [place] [id number] Globulin (S) [Mass/Vol] 3.3 g/dL Normal 2.2-4.2 [facility] Comment on above: Performed By: #### L 500.48594, L500.67579, L500.07520 #### [facility] [address] [place], [place] [id number] Protein [Mass/Vol] 7.1 g/dL Normal 6.0-8.5 [facility] Comment on above: Performed By: #### L 500.16164, L500.18273, L500.40613 #### [facility] [address] [place] [address] TSHon 11-15-2021 TSH 8.997 UIU/ML High 0.358-3.740 [facility] Comment on above: Result Comment: 3rd generation ultra sensitive TSH Performed By: #### L 500.71705, L500.24176, L500.35587 #### [facility] [address] [place] [address] Vital Signs Date Time Vital Sign Value Performing Clinician Tony young 05-27-2025 06:53-0400 Body height 166.4 cm Joanne Isaac LOAD MANAGER.CORE ANALYSIS OPERATOR Work Phone: [facility] 05-27-2025 06:53-0400 Body mass index (BMI) [Ratio] 38.51 kg/m2 Joanne [place] LOAD MANAGER.CORE ANALYSIS OPERATOR Work Phone: [facility] 05-27-2025 06:53-0400 Body weight 106.59 kg Joanne Isaac LOAD MANAGER.CORE ANALYSIS OPERATOR Work Phone: [facility] 05-27-2025 06:53-0400 Diastolic blood pressure 70 mm[Hg] Joanne [place] LOAD MANAGER.CORE ANALYSIS OPERATOR Work Phone: [facility] 05-27-2025 06:53-0400 Systolic blood pressure 124 mm[Hg] Joanne [place] LOAD MANAGER.CORE ANALYSIS OPERATOR Work Phone: [facility] 04-21-2025 08:06-0400 Body height 167.6 cm Jill Bullock MD Work Phone: [facility] 04-21-2025 08:06-0400 Body mass index (BMI) [Ratio] 37.45 kg/m2 Jill Bullock MD Work Phone: [facility] 04-21-2025 08:06-0400 Body temperature 97.3 [degF] Jill Bullock MD Work Phone: [facility] 04-21-2025 08:06-0400 Body weight 105.23 kg Jill Bullock MD Work Phone: [facility] 04-21-2025 08:06-0400 Diastolic blood pressure 84 mm[Hg] Jill Bullock MD Work Phone: [facility] 04-21-2025 08:06-0400 Heart rate 78 /min Jill Bullock MD Work Phone: [facility] 04-21-2025 08:06-0400 Respiratory rate 18 /min Jill Bullock MD Work Phone: [facility] 04-21-2025 08:06-0400 SaO2% (BldA) [Mass fraction] 98 % Jill Bullock MD Work Phone: [facility] 04-21-2025 08:06-0400 Systolic blood pressure 124 mm[Hg] Jill Bullock MD Work Phone: [facility] 10-07-2024 07:51-0500 Body height 167.6 cm Jill Bullock MD Work Phone: [facility] 10-07-2024 07:51-0500 Body mass index (BMI) [Ratio] 39.87 kg/m2 Jill Bullock MD Work Phone: [facility] 10-07-2024 07:51-0500 Body temperature 97.9 [degF] Jill Bullock MD Work Phone: [facility] 10-07-2024 07:51-0500 Body weight 112.04 kg Jill Bullock MD Work Phone: [facility] 10-07-2024 07:51-0500 Diastolic blood pressure 84 mm[Hg] Jill Bullock MD Work Phone: [facility] 10-07-2024 07:51-0500 Heart rate 69 /min Jill Bullock MD Work Phone: [facility] 10-07-2024 07:51-0500 Respiratory rate 18 /min Jill Bullock MD Work Phone: [facility] 10-07-2024 07:51-0500 SaO2% (BldA) [Mass fraction] 99 % Jill Bullock MD Work Phone: [facility] 10-07-2024 07:51-0500 Systolic blood pressure 126 mm[Hg] Jill Bullock MD Work Phone: [facility] 05-21-2024 07:26-0400 Body height 167.6 cm Joanne Isaac LOAD MANAGER.CORE ANALYSIS OPERATOR Work Phone: [facility] 05-21-2024 07:26-0400 Body mass index (BMI) [Ratio] 41 kg/m2 Joanne [place] LOAD MANAGER.CORE ANALYSIS OPERATOR Work Phone: [facility] 05-21-2024 07:260400 Body weight 115.21 kg Joanne Isaac LOAD MANAGER.CORE ANALYSIS OPERATOR Work Phone: [facility] 04-01-2024 08:090400 Body height 167.6 cm Jill Bullock MD Work Phone: [facility] 04-01-2024 08:09-0400 Body mass index (BMI) [Ratio] 40.8 kg/m2 Jill Bullock MD Work Phone: [facility] 04-01-2024 08:09-0400 Body temperature 97.59 [degF] Jill Bullock MD Work Phone: [facility] 04-01-2024 08:09-0400 Body weight 114.67 kg Jill Bullock MD Work Phone: [facility] 04-01-2024 08:09-0400 Diastolic blood pressure 82 mm[Hg] Jill Bullock MD Work Phone: [facility] 04-01-2024 08:09-0400 Heart rate 66 /min Jill Bullock MD Work Phone: [facility] 04-01-2024 08:09-0400 Respiratory rate 18 /min Jill Bullock MD Work Phone: [facility] 04-01-2024 08:09-0400 SaO2% (BldA) [Mass fraction] 99 % Jill Bullock MD Work Phone: [facility] 04-01-2024 08:09-0400 Systolic blood pressure 130 mm[Hg] Jill Bullock MD Work Phone: [facility] 03-27-2023 08:45-0400 Body height 167.6 cm Jill Bullock MD Work Phone: [facility] 03-27-2023 08:45-0400 Body temperature 97.11 [degF] Jill Bullock MD Work Phone: [facility] 03-27-2023 08:45-0400 Body weight 108.77 kg Jill Bullock MD Work Phone: [facility] 03-27-2023 08:45-0400 Diastolic blood pressure 78 mm[Hg] Jill Bullock MD Work Phone: [facility] 03-27-2023 08:45-0400 Heart rate 63 /min Jill Bullock MD Work Phone: [facility] 03-27-2023 08:45-0400 Respiratory rate 14 /min Jill Bullock MD Work Phone: [facility] 03-27-2023 08:45-0400 SaO2% (BldA) [Mass fraction] 99 % Jill Bullock MD Work Phone: [facility] 03-27-2023 08:45-0400 Systolic blood pressure 112 mm[Hg] Jill Bullock MD Work Phone: [facility] 09-26-2022 09:38-0500 Body height 167.6 cm Rodrigo Meehan LOAD MANAGER.CORE ANALYSIS OPERATOR Work Phone: [facility] 09-26-2022 09:38-0500 Body temperature 97.7 [degF] Rodrigo Meehan LOAD MANAGER.CORE ANALYSIS OPERATOR Work Phone: [facility] 09-26-2022 09:38-0500 Body weight 112.31 kg Rodrigo Meehan LOAD MANAGER.CORE ANALYSIS OPERATOR Work Phone: [facility] 09-26-2022 09:38-0500 Diastolic blood pressure 74 mm[Hg] Toyae Zoran LOAD MANAGER.CORE ANALYSIS OPERATOR Work Phone: [facility] 09-26-2022 09:38-0500 Heart rate 71 /min Rodrigo Meehan APRN.CORE ANALYSIS OPERATOR Work Phone: [facility] 09-26-2022 09:38-0500 Respiratory rate 14 /min Rodrigo Meehan APRN.CORE ANALYSIS OPERATOR Work Phone: [facility] 09-26-2022 09:38-0500 SaO2% (BldA) [Mass fraction] 98 % Rodrigo Meehan APRN.CORE ANALYSIS OPERATOR Work Phone: [facility] 09-26-2022 09:38-0500 Systolic blood pressure 120 mm[Hg] Rodrigo Meehan LOAD MANAGER.CORE ANALYSIS OPERATOR Work Phone: [facility] Encounters Encounter Date Encounter Type Care Provider Facility Start: 06-14-2025 [facility] Facility: [facility] Start: 05-27-2025 End: 05-27-2025 Patient encounter procedure Joanne Medina APRN.NAHEED Work Phone: OB/Gynecology Comment on above: Encounter for gyneco logical examination (general) (routine) without abnormal findings (Primary Dx); Encounter for screening mammogram for breast cancer Start: 05-27-2025 End: 05-27-2025 Patient encounter status Joanne Medina APRN.CNP Work Phone: [facility] Start: 05-27-2025 End: 05-27-2025 [facility] Facility:[facility] Start: 05-27-2025 Encounter for gyneco logical examination (general) (routine) without abnormal findings JOANNE MEDINA [facility] Start: 04-22-2025 End: 04-22-2025 Follow-up encounter Jill Bullock MD Work Phone: [facility] Start: 04-21-2025 End: 04-21-2025 Patient encounter procedure [facility] Comment on above: Wellness examination (Primary Dx); Encounter for screening examination for other mental health and behavioral disorders; Mixed hyperlipidemia; Depressive disorder; Acquired hypothyroidism; Screening for deficiency anemia Start: 04-21-2025 End: 04-21-2025 Patient encounter status Jill Bullock MD Work Phone: [facility] Work Phone: Start: 04-21-2025 End: 04-21-2025 ambulatory JILL BULLOCK Facility:[id number] Start: 04-21-2025 Encounter for genera l adult medical examination without abnormal findings JILL BULLOCK [facility] Start: 03-30-2025 End: 04-30-2025 ambulatory Jill Bullock MD Work Phone: [facility] Start: 03-30-2025 End: 04-30-2025 Patient encounter procedure Jill Bullock MD Work Phone: [facility] Start: 10-07-2024 End: 10-07-2024 Office outpatient visit 15 minutes Jill Bullock MD Work Phone: [facility] Comment on above: Pure hypercholestero lemia (Primary Dx); Acquired hypothyroidism; Depressive disorder Start: 10-07-2024 End: 10-07-2024 ambulatory JILL BULLOCK Facility:[id number] Start: 07-17-2024 End: 07-17-2024 ambulatory SHAWNA LITTLE Facility:[facility] Start: 07-17-2024 End: 07-17-2024 Patient encounter procedure Shawna Little OD Work Phone: Ophthalmology Comment on above: Dry eye syndrome of both eyes (Primary Dx); S/P LASIK (laser assisted in situ keratomileusis) of both eyes; Posterior vitreous detachment of both eyes Start: 05-21-2024 End: 05-21-2024 Patient encounter procedure Joanne Medina APRN.CORE ANALYSIS OPERATOR Work Phone: OB/Gynecology Comment on above: Encounter for gyneco logical examination (general) (routine) without abnormal findings (Primary Dx); Encounter for screening for human papillomavirus (HPV); Pap smear for cervical cancer screening; Encounter for screening mammogram for breast cancer Start: 05-21-2024 End: 05-21-2024 Patient encounter status Joanne Medina APRN.CORE ANALYSIS OPERATOR Work Phone: [facility] Start: 04-01-2024 End: 04-01-2024 Patient encounter status Jill Bullock MD Work Phone: [facility] Work Phone: Start: 04-01-2024 End: 04-01-2024 Periodic preventive med est patient 40-64yrs Jill Bullock MD Work Phone: [facility] Comment on above: Wellness examination (Primary Dx); Pure hypercholesterolemia; Acquired hypothyroidism; Major depressive disorder with single episode, in remission (HCC); Screening for deficiency anemia; Encounter for screening mammogram for malignant neoplasm of breast Start: 10-01-2023 Telephone encounter Jill Bullock MD Work Phone: [facility] Comment on above: Results Start: 07-11-2023 End: 07-11-2023 Patient encounter procedure Shawnanaman Little OD Work Phone: Ophthalmology Comment on above: Dry eye syndrome of both eyes (Primary Dx); S/P LASIK (laser assisted in situ keratomileusis) of both eyes; Vitreous floaters of both eyes Start: 05-20-2023 End: 05-20-2023 ambulatory [facility] Work Phone: Start: 05-20-2023 End: 05-20-2023 Patient encounter procedure [facility] Work Phone: Start: 04-02-2023 Telephone encounter Jill Bullock MD Work Phone: [facility] Comment on above: Population Health Na vigation Outreach Start: 04-01-2023 Telephone encounter Jill Bullock MD Work Phone: [facility] Comment on above: Results Start: 03-31-2023 Telephone encounter Jill Bullock MD Work Phone: [facility] Comment on above: Orders Start: 03-27-2023 End: 03-27-2023 Patient encounter status Jill Bullock MD Work Phone: [facility] Start: 03-27-2023 End: 03-27-2023 Periodic preventive med est patient 40-64yrs Jill Bullock MD Work Phone: [facility] Comment on above: Wellness examination (Primary Dx); Screening for deficiency anemia; Pure hypercholesterolemia; Acquired hypothyroidism Start: 09-26-2022 Refill Rodrigo Meehan APRN.CORE ANALYSIS OPERATOR Work Phone: [facility] Comment on above: Refill Request Results Start: 09-26-2022 End: 09-26-2022 Office outpatient visit 15 minutes Rodrigo Meehan APRN.CORE ANALYSIS OPERATOR Work Phone: [facility] Comment on above: Mixed hyperlipidemia (Primary Dx); Hypothyroidism, unspecified type; Depressive disorder Start: 07-11-2022 End: 07-11-2022 Patient encounter procedure Kei Rothman MD Work Phone: Ophthalmology Comment on above: Dry eye syndrome of both eyes (Primary Dx); S/P LASIK (laser assisted in situ keratomileusis) of both eyes; Vitreous floaters of both eyes Start: 05-15-2022 End: 05-15-2022 Patient encounter procedure [facility] Start: 03-14-2022 End: 03-14-2022 Subsequent hospital visit by physician Jill Bullock MD Work Phone: [facility] Comment on above: Z13.9,E78.5,Z00.00,E 03.9, Procedures Date Procedure Procedure Detail Performing Clinician Start: 04-21-2025 Lipid 1995 panel - Serum or Plasma Jill Bullock MD Work Phone: Start: 10-07-2024 Lipid 1995 panel - Serum or Plasma Jill Bullock MD Work Phone: Start: 04-01-2024 Lipid 1996 panel - Serum or Plasma Joanne Medina APRN.CORE ANALYSIS OPERATOR Work Phone: Start: 09-30-2023 Lipid 1996 panel - Serum or Plasma Jill Bullock MD Work Phone: Start: 05-20-2023 Screening mammography Start: 03-27-2023 Lipid 1996 panel - Serum or Plasma Shawna Little OD Work Phone: Start: 05-15-2022 Screening mammography Start: 04-18-2017 Colonoscopy Shawna Little OD Work Phone: Start: 07-08-2014 History of laser assisted in situ keratomileusis S/P LASIK surgery of both eyes Jill Bullock MD Work Phone: History of laser ass isted in situ keratomileusis S/P LASIK (laser assisted in situ keratomileusis) of both eyes Kei Rothman MD Work Phone: History of laser ass isted in situ keratomileusis S/P LASIK (laser assisted in situ keratomileusis) of both eyes Shawna Little OD Work Phone: History of laser ass isted in situ keratomileusis S/P LASIK (laser assisted in situ keratomileusis) of both eyes Shawna iLttle OD Work Phone: Plan of Treatment Date Care Activity Detail Author Start: 04-21-2030 Lipid panel Lipid Screening [facility] Start: 10-07-2029 Lipid panel Lipid Screening [facility] Start: 05-21-2029 Screening for malign ant neoplasm of cervix Cervical Cancer Screening [facility] Start: 04-01-2029 Lipid panel Lipid Screening [facility] Start: 09-30-2028 Lipid 1996 panel - Serum or Plasma Lipid Screening [facility] Start: 09-30-2028 Lipid panel Lipid Screening [facility] Start: 04-21-2028 Diabetes Screening Diabetes Screenin g [facility] Start: 03-27-2028 Lipid 1996 panel - Serum or Plasma Lipid Screening [facility] Start: 03-27-2028 LIPID SCREEN LIPID SCREEN [facility] Start: 10-07-2027 Diabetes Screening Diabetes Screenin g [facility] Start: 09-26-2027 LIPID SCREEN LIPID SCREEN [facility] Start: 04-18-2027 Colonoscopy Colonoscopy [facility] Start: 04-18-2027 Colorectal Cancer Screening Colorectal Cancer Screening [facility] Start: 04-18-2027 Screening for malign ant neoplasm of colon [facility] Start: 04-01-2027 Diabetes Screening Diabetes Screenin g [facility] Start: 03-14-2027 LIPID SCREEN LIPID SCREEN [facility] Start: 09-30-2026 Diabetes Screening Diabetes Screenin g [facility] Start: 06-03-2026 End: 06-03-2026 Patient encounter procedure 06/03/2026 7:00 AM EDT Office Visit OB/Gynecology [address] [place] [address] Joanne Medina APRN.CORE ANALYSIS OPERATOR [address] [place] [address] Annual OB/Gynecology Comment on above: Annual Start: 04-21-2026 Annual PCP Team Cott[facility] Blower ludwig Disease Visit Annual PCP Team Chronic Disease Visit [facility] Start: 04-21-2026 Anxiety Screening Anxiety Screening [facility] Start: 03-27-2026 DIABETES SCREEN DIABETES SCREEN [facility] Start: 03-27-2026 Diabetes Screening Diabetes Screenin g [facility] Start: 11-01-2025 End: 11-01-2025 Patient encounter procedure 11/01/2025 8:00 AM EST Office Visit [facility] [address] [place] [phone] Jill Bullock MD [address] [place], [place] [phone] 6 month follow up [facility] Comment on above: 6 month follow up Start: 10-07-2025 Annual PCP Team Cottrell Blower ludwig Disease Visit Annual PCP Team Chronic Disease Visit [facility] Start: 09-26-2025 [facility] Start: 07-16-2025 End: 07-16-2025 Patient encounter procedure 07/16/2025 8:00 AM EDT Office Visit [facility] [address] [place] [address] Shawna Little, OD [address] [place] [address] 1 year eye exam Ophthalmology Comment on above: 1 year eye exam Start: 06-28-2025 Influenza vaccination C [facility] Start: 05-27-2025 End: 05-27-2025 Patient encounter procedure 05/27/2025 7:00 AM EDT Office Visit OB/Gynecology [address] [place] [address] Joanne Medina APRN.CORE ANALYSIS OPERATOR [address] [place] [address] Annual OB/Gynecology Comment on above: Annual Start: 04-21-2025 End: 07-21-2025 Comprehensive metabolic 2000 panel - Serum or Plasma [facility] Work Phone: Comment on above: Expected: 04/21/2025 , Expires: 07/21/2025 Start: 04-21-2025 End: 07-21-2025 Lipid 1996 panel - Serum or Plasma [facility] Comment on above: Expected: 04/21/2025 , Expires: 07/21/2025 Start: 04-21-2025 End: 07-21-2025 Thyrotropin [Units/volume] in Serum or Plasma [facility] Comment on above: Expected: 04/21/2025 , Expires: 07/21/2025 Start: 04-21-2025 End: 04-21-2025 Patient encounter procedure 04/21/2025 8:00 AM EDT Office Visit [facility] [address] [place] [phone] Jill Bullock MD [address] [place], [place] [phone] Annual Wellness Exam [facility] Comment on above: Annual Wellness Exam Start: 04-01-2025 Annual PCP Team Cottrell Blower ludwig Disease Visit Annual PCP Team Chronic Disease Visit [facility] Start: 04-01-2025 Anxiety Screening Anxiety Screening [facility] Start: 03-14-2025 DIABETES SCREEN DIABETES SCREEN [facility] Start: 10-07-2024 End: 10-07-2024 Patient encounter procedure 10/07/2024 8:00 AM EST Office Visit [facility] [address] [place] [phone] Jill Bullock MD [address] [place], [place] [phone] 6 Month Follow Up [facility] Comment on above: 6 Month Follow Up Start: 09-30-2024 Annual PCP Team Cottrell Blower ludwig Disease Visit Annual PCP Team Chronic Disease Visit [facility] Start: 07-17-2024 End: 07-17-2024 Patient encounter procedure 07/17/2024 8:00 AM EDT Office Visit [facility] [address] [place] [address] Shawna Little, OD [address] [place] [address] routine eye exam Ophthalmology Comment on above: routine eye exam Start: 06-28-2024 Covid-19 Vaccine ( season) Covid-19 Vaccine ( season) [facility] Start: 06-28-2024 Covid-19 Vaccine ( season) Covid-19 Vaccine ( season) [facility] Start: 06-28-2024 Influenza vaccination C [facility] Start: 05-20-2024 Mammography Mammogram Screening [facility] Start: 05-20-2024 Screening for malign ant neoplasm of breast Mammogram Screening [facility] Start: 04-01-2024 End: 07-01-2024 Comprehensive metabolic 2000 panel - Serum or Plasma [facility] Work Phone: Comment on above: Expected: 04/01/2024 , Expires: 07/01/2024 Start: 04-01-2024 End: 07-01-2024 Lipid 1996 panel - Serum or Plasma [facility] Comment on above: Expected: 04/01/2024 , Expires: 07/01/2024 Start: 04-01-2024 End: 07-01-2024 Thyrotropin [Units/volume] in Serum or Plasma [facility] Comment on above: Expected: 04/01/2024 , Expires: 07/01/2024 Start: 03-27-2024 ANNUAL PCP TEAM TAG MACHINE OPERATOR LUDWIG DISEASE VISIT ANNUAL PCP TEAM CHRONIC DISEASE VISIT [facility] Start: 09-26-2023 ANNUAL PCP TEAM TAG MACHINE OPERATOR LUDWIG DISEASE VISIT ANNUAL PCP TEAM CHRONIC DISEASE VISIT [facility] Start: 06-28-2023 Covid-19 Vaccine () Covid-19 Vaccine () [facility] Start: 06-28-2023 Influenza vaccination C [facility] Start: 03-27-2023 End: 05-27-2023 CBC W Auto Differential panel - Blood [facility] Work Phone: Comment on above: Expected: 03/27/2023 , Expires: 05/27/2023 Start: 03-27-2023 End: 05-27-2023 Comprehensive metabolic 1999 panel - Serum or Plasma [facility] Work Phone: Comment on above: Expected: 03/27/2023 , Expires: 05/27/2023 Start: 03-27-2023 End: 05-27-2023 Lipid 1996 panel - Serum or Plasma [facility] Work Phone: Comment on above: Expected: 03/27/2023 , Expires: 05/27/2023 Start: 03-27-2023 End: 05-27-2023 Thyrotropin [Units/volume] in Serum or Plasma [facility] Work Phone: Comment on above: Expected: 03/27/2023 , Expires: 05/27/2023 Start: 06-28-2022 Influenza vaccination C [facility] Start: 2016 Pneumococcal Vaccine : 50+ (1 of 1 - PCV) Pneumococcal Vaccine: 50+ (1 of 1 - PCV) [facility] Start: 2016 SHINGRIX VACCINE (1 of 2) SHINGRIX VACCINE (1 of 2) [facility] Start: 2011 COLOGUARD (FIT-DNA) COLOGUARD (FIT-D NA) [facility] Start: 2011 Colonoscopy COLONOSCOPY [facility] Start: 2011 COLORECTAL CANCER SCREENING COLORECTAL CANCER SCREENING [facility] Start: [address] COLONOGRAPHY [facility] Start: 2011 DIABETES SCREEN DIABETES SCREEN [facility] Start: 2011 FECAL OCCULT BLOOD FECAL OCCULT BLOO D [facility] Start: 2011 LIPID SCREEN LIPID SCREEN [facility] Start: 2011 Screening for malign ant neoplasm of colon [facility] Start: 2011 SIGMOIDOSCOPY SIGMOIDOSCOPY [facility] Start: 2006 Mammography MAMMOGRAM [facility] Start: 1996 HPV TESTING HPV TESTING [facility] Start: 1996 Screening for malign ant neoplasm of cervix HPV Testing [facility] Start: 1987 PAP TESTING PAP TESTING [facility] Start: 1987 Screening for malign ant neoplasm of cervix [facility] Start: 1985 Hepatitis B Vaccine (1 of 3 - 19+ 3-dose series) Hepatitis B Vaccine (1 of 3 - 19+ 3-dose series) [facility] Start: 1985 Urine microalbumin profile [facility] Start: 1984 Anxiety Screening Anxiety Screening [facility] Start: 1984 HEPATITIS C SCREENING HEPATITIS C [facility] Start: 1984 Hepatitis C screening Hepatitis C [facility] Start: 1984 HIV SCREENING HIV SCREENING [facility] Start: 1984 HIV screening HIV Screening [facility] Start: 1978 Adult depression screening assessment DEPRESSION SCREENING [facility] Start: 1971 COVID-19 VACCINE (#1) COVID-19 VACCI NE (#1) [facility] Start: 03-22-1967 COVID-19 VACCINE (#1) COVID-19 VACCI NE (#1) [facility] Start: 1966 HEPATITIS B (1 of 3 - 3-dose series) HEPATITIS B (1 of 3 - 3-dose series) [facility] Start: 1966 Hepatitis B Vaccine (1 of 3 - 3-dose series) Hepatitis B Vaccine (1 of 3 - 3-dose series) [facility] End: 04-29-2026 DBT Breast - bilateral screening SHELL SCREENING W ELIE Radiology Routine Encounter for screening mammogram for breast cancer 1 Occurrences starting 03/30/2025 until 04/29/2026 [facility] Work Phone: Comment on above: 1 Occurrences starti ng 03/30/2025 until 04/29/2026 End: 05-01-2025 MG Breast Screening SHELL SCREENING Radiology Routine Encounter for screening mammogram for malignant neoplasm of breast 1 Occurrences starting 04/01/2024 until 05/01/2025 [facility] Comment on above: 1 Occurrences starti ng 04/01/2024 until 05/01/2025 PAP TEST PAP TEST Lab [facility] Encounter for screening for human papillomavirus (HPV) Pap smear for cervical cancer screening Ordered: 05/21/2024 [facility] Work Phone: Comment on above: Ordered: 05/21/2024 [facility] Immunizations Immunization Date Immunization Notes Care Provider [facility] 08-12-2020 influenza nasal, unspecified formulation Rodrigo Meehan APRN.CORE ANALYSIS OPERATOR Work Phone: [facility] Work Phone: 08-12-2020 influenza virus vaccine, unspecified formulation Shawna Little OD Work Phone: [facility] 08-20-2019 influenza nasal, unspecified formulation Rodrigo Meehan APRN.CORE ANALYSIS OPERATOR Work Phone: [facility] Work Phone: 07-30-2018 influenza nasal, unspecified formulation Rodrigo Meehan APRN.CORE ANALYSIS OPERATOR Work Phone: [facility] Work Phone: Payers Date Payer Category Payer Self-pay [id number] 2024 Unknown [id number] 2021 Private Health Insurance KINA ALONZO OAP [id number] 2021-Present [phone] [address] [place] [address] Open Access [id number] 2021 Private Health Insurance [id number] 2019 Unknown [employer] E PPO [id number] 2019-Present [phone] [address] [place] [address] PPO [id number] 2015 Unknown [id number] 2009 Blue Cross Blue Shield [id number] 2009 Unknown [employer] BLUE CARD PPO OOS [id number] 2009-Present [phone] [address] [place] [address] PPO [id number] 2009 Unknown [id number] Unknown [id number] Social History Date Type Detail Facility Start: 07-07-2014 End: 09-26-2022 Tobacco smoking status NHIS Never smoked tobacco [facility] Start: 07-07-2014 End: 09-26-2022 Tobacco use and exposure Smokeless tobacco non-user [facility] Start: 09-17-2019 End: 05-27-2025 Alcohol intake Current non-drinker of alcohol (finding) [facility] Start: 1965 Sex Assigned At Not on file [facility] Start: 08-28-2013 Tobacco smoking stat us MIIS Unknown if ever smoked [facility] Start: 1965 Sex Assigned At Female C [facility] Start: 07-01-2022 End: 09-26-2022 Exposure to SARS-CoV-2 (event) Not sure [facility] Start: 09-26-2022 Education 17 [facility] Start: 03-27-2023 History SDOH Alcohol Frequency 1 [facility] Start: 03-27-2023 History SDOH Alcohol Std Drinks 0 [facility] Start: 03-27-2023 History SDOH Social Connections Phone 3 [facility] Start: 03-27-2023 History SDOH Social Connections Get Together 2 [facility] Start: 03-27-2023 History SDOH Social Connections Living 7 [facility] Start: 03-27-2023 History SDOH Financial 5 [facility] Start: 03-27-2023 End: 04-01-2024 History of Social function [facility] Start: 03-27-2023 End: 04-01-2024 Social connection and isolation panel [facility] Do you belong to any clubs or organizations such as catholic groups, unions, fraternal or athletic groups, or school groups? Yes [facility] Are you now , , , , never or living with a partner? Never [facility] How often to you hav e a drink containing alcohol? Never [facility] How many standard drinks containing alcohol do you have on a typical day? Patient does not drink [facility] Do you feel stress - tense, restless, nervous, or anxious, or unable to sleep at night because your mind is troubled all the time - these days [OSQ] Not at all [facility] (I/We) worried wheth er (my/our) food would run out before (I/we) got money to buy more. Never true [facility] In the past 12 month s, was there a time when you were not able to pay the mortgage or rent on time? No [facility] Start: 03-19-2022 Gender identity Identifies as female gender (finding) [facility] Start: 03-19-2022 Sexual orientation Heterosexual (maryan tracey) [facility] NEGATED: Highlighted rowStart: DIANEF History of tobacco use Passive smoker [facility] Functional Status Date Assessment Result Facility 04-21-2025 Total score [AUDIT-C] 0 04/21/20 8:05 AM EDT Luz Sahni LPN [facility] Clinical Notes 07-08-2014 to 05-27-2025 Joanne Medina APRN.CNP - 05/27/2025 6:52 AM EDTTelephone Encounter - Brain Henson LPN - 04/22/2025 10:09 AM EDTTelephone Encounter - Brain Henson LPN - 04/22/2025 10:09 AM EDT Note Date & Type Note Facility 05-27-2025 Note HNO ID: [id number] Author: JOANNE MEDINA APRN.CNP Service: ? 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 Diandra is a 59 year old who presents for an annual gynecologic exam without complaints. Postmenopausal: Yes since age 53 HRT use: No. Last Pap: 2023 normal HPV: 2023 negative History of abnormal pap: Yes LEEP 2004, 2011 Last mammogram: [address] [facility] History of abnormal mammogram: No Sexually active: No Patient concerns for STD exposure: No. 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 Administrator History Comments: Sexual Activity: Yes; No partner data on record; not asked Contraception: No contraception data on record PAST MEDICAL HISTORY Diagnosis Date Abnormal Pap smear of cervix normal after 2011 Allergic rhinitis, cause unspecified Depressive disorder, not elsewhere classified Mixed hyperlipidemia Unspecified hypothyroidism 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 No bloating, early satiety, indigestion, or increased flatulence. Bladder: No dysuria, gross hematuria, urinary frequency, urinary urgency, or incontinence Breast: No breast lumps, nipple d/c, overlying skin changes, redness or skin retraction Allergies and current medication updated:Yes SENSITIVE EXAM: The sensitive examination was discussed with the Patient or Patient's Authorized Video And Sound Recorder. As applicable, any other physician, advance practice provider, medical student, or other health professional student that will be observing or involved in the sensitive examination for educational or training purposes was discussed with the Patient or Authorized Video And Sound Recorder. The Patient or Authorized Video And Sound Recorder has agreed to proceed with the sensitive examination. (Sensitive examination includes inspection and/or palpation of the breasts, pelvis, prostate and anorectal regions). EXAM: BP 124/70 Ht 5' 5.5 (1.66m) Wt 235 lb (106.6kg) LMP 12/09/2017 BMI 38.50 kg/(m2). GENERAL: pleasant, female in no apparent distress HEENT: Normocephalic, atraumatic, mucus membranes moist, and no lesions DERMATOLOGY: Normal, without lesions, non-icteric, and non-hirsute BREAST: soft, non-tender, symmetric, no dominant mass, normal nipple-areolar complex, no lymphadenopathy, and no nipple discharge CHEST: Normal inspiratory effort ABDOMEN: soft, non-tender, and no masses PELVIC: external genitalia normal, normal Bartholin's glands, urethra, [place]'s glands, no vulvar lesions, no cervical lesions, good vaginal support, physiologic discharge present, normal appearing perineal body and perianal region, stenotic os BIMANUAL: uterus normal size, shape and consistency, no adnexal masses, and non-tender RECTOVAGINAL: deferred. NEURO: alert and oriented x3,exam grossly non-focal EXTREMITIES: normal ASSESSMENT/PLAN: 1) Health maintenance: Pap/HPV up to date. Mammogram ordered @ [facility] Nutrition, exercise and routine health maintenance exams reviewed. Calcium/Vitamin D supplementation information provided. Colon cancer screening: up to date with screening 2) Follow up one year or sooner as needed Joanne Medina APRN.NAHEED 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 Diandra is a 59 year old who presents for an annual gynecologic exam without complaints. Postmenopausal: Yes since age 53 HRT use: No. Last Pap: 2023 normal HPV: 2023 negative History of abnormal pap: Yes LEEP 2004, 2011 Last mammogram: [address] [facility] History of abnormal mammogram: No Sexually active: No Patient concerns for STD exposure: No. 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 Administrator History Comments: Sexual Activity: Yes; No partner data on record; not asked Contraception: No contraception data on record PAST MEDICAL HISTORY Diagnosis Date Abnormal Pap smear of cervix normal after 2011 Allergic rhinitis, cause unspecified Depressive disorder, not elsewhere classified Mixed hyperlipidemia Unspecified hypothyroidism 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 No bloating, early satiety, indigestion, or increased flatulence. Bladder: No dysuria, gross hematuria, urinary frequency, urinary urgency, or incontinence Breast: No breast lumps, nipple d/c, overlying skin changes, redness or skin retraction Allergies and current medication updated:Yes SENSITIVE EXAM: The sensitive examination was discussed with the Patient or Patient's Authorized Video And Sound Recorder. As applicable, any other physician, advance practice provider, medical student, or other health professional student that will be observing or involved in the sensitive examination for educational or training purposes was discussed with the Patient or Authorized Video And Sound Recorder. The Patient or Authorized Video And Sound Recorder has agreed to proceed with the sensitive examination. (Sensitive examination includes inspection and/or palpation of the breasts, pelvis, prostate and anorectal regions). EXAM: BP 124/70 Ht 5' 5.5 (1.66m) Wt 235 lb (106.6kg) LMP 12/09/2017 BMI 38.50 kg/(m^2). GENERAL: pleasant, female in no apparent distress HEENT: Normocephalic, atraumatic, mucus membranes moist, and no lesions DERMATOLOGY: Normal, without lesions, non-icteric, and non-hirsute BREAST: soft, non-tender, symmetric, no dominant mass, normal nipple-areolar complex, no lymphadenopathy, and no nipple discharge CHEST: Normal inspiratory effort ABDOMEN: soft, non-tender, and no masses PELVIC: external genitalia normal, normal Bartholin's glands, urethra, [place]'s glands, no vulvar lesions, no cervical lesions, good vaginal support, physiologic discharge present, normal appearing perineal body and perianal region, stenotic os BIMANUAL: uterus normal size, shape and consistency, no adnexal masses, and non-tender RECTOVAGINAL: deferred. NEURO: alert and oriented x3,exam grossly non-focal EXTREMITIES: normal ASSESSMENT/PLAN: 1) Health maintenance: Pap/HPV up to date. Mammogram ordered @ [facility] Nutrition, exercise and routine health maintenance exams reviewed. Calcium/Vitamin D supplementation information provided. Colon cancer screening: up to date with screening 2) Follow up one year or sooner as needed Joanne Medina APRN.NAHEED documented in this encounter [facility] 04-22-2025 Telephone encounter Note Patient notified of result information on My Chart. Notification will be sent to this nurse if message has not been read within 2 days. Patient will be contacted by another form of communication if notification of not reading My Chart message is received. Brain Henson LPN April 22, 2025 10:09 AM [facility] 04-22-2025 Miscellaneous Notes Patient notified of result information on My Chart. Notification will be sent to this nurse if message has not been read within 2 days. Patient will be contacted by another form of communication if notification of not reading My Chart message is received. Brain Henson LPN April 22, 2025 10:09 AM ----- Message from Jill Bullock MD sent at 04/22/2025 9:50 AM EDT ----- TSH is low. Decrease dose of levothyroxine to 125 mcg. Recheck in 3 months. documented in this encounter [facility] 04-22-2025 Telephone encounter Note ----- Message from Jill Bullock MD sent at 04/22/2025 9:50 AM EDT ----- TSH is low. Decrease dose of levothyroxine to 125 mcg. Recheck in 3 months. [facility] 04-21-2025 Note HNO ID: [id number] Author: JILL BULLOCK MD Service: ? Author Type: Physician Type: Progress Notes Filed: 04/21/2025 08:28 Note Text: Abiodun Del Angel is a 59-year-old female with a history of hyperlipidemia, hypothyroidism, and depression, presenting for an annual wellness visit. Annual Wellness Exam: - Last mammogram was in March of last year. - Reports difficulty sleeping last night due to an active mind; denies chronic sleep issues. - Recent move; reports feeling okay. Hyperlipidemia: - Taking Crestor 10 mg daily. - Last labs were in September. Hypothyroidism: - Taking levothyroxine; occasionally misses doses. - Last TSH check was in September. Depression: - Managed with Zoloft 100 mg daily; reports feeling well on current dose. Supplements: - Takes fish oil inconsistently. Review of Systems GENERAL: Positive for sleep disturbance; denies weight loss, generalized discomfort, or fever. HEENT: Negative for frequent or significant headaches, no changes in vision or hearing, no epistaxis or other nasal problems. NECK: Negative for lumps, goiter, pain, or significant neck swelling. RESPIRATORY: Negative for cough, dyspnea, or shortness of breath. CARDIOVASCULAR: Negative for chest pain, leg swelling, CHF, or palpitations. GI: No nausea, vomiting, diarrhea, heartburn, abdominal pain, blood in stool, or black stool. GENITOURINARY: No history of dysuria, frequency, or incontinence. MUSCULOSKELETAL: Negative for joint pain or swelling or muscle pain. No back pain. SKIN: Negative for lesions, rash, and itching. PSYCH: Negative for anxiety or depression. HEMATOLOGY/LYMPHOLOGY: No bleeding concerns. NEURO: No history of headaches, syncope, paralysis, seizures, or tremors. ENDOCRINE: No history of polydipsia, increased thirst, or other endocrine symptoms. 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 PAST MEDICAL HISTORY Diagnosis Date Abnormal Pap smear of cervix normal after 2011 Allergic rhinitis, cause unspecified Depressive disorder, not elsewhere classified Mixed hyperlipidemia Unspecified hypothyroidism FAMILY HISTORY Problem Relation Age of Onset other (endometrial cancer) Mother No Known Problems Father Mental illness Brother Dementia Maternal Grandmother Heart Maternal Grandmother Cancer Maternal Grandfather Emphysema Paternal Grandfather Social History Tobacco Use Smoking status: Never Passive exposure: Never Smokeless tobacco: Never Vaping Use Vaping status: Never Used Substance Use Topics Alcohol use: No Drug use: No ALLERGIES Allergen Reactions Amoxil [Amoxicillin] Rash, Itching MEDICATIONS: omega 6-voy-rth-fish oil (FISH OIL) 60-90-500 mg cap Take by mouth. rosuvastatin (CRESTOR) 10 mg tablet Take 1 tablet by mouth once daily. sertraline (ZOLOFT) 100 mg tablet Take 1 tablet by mouth once daily. levothyroxine (LEVOXYL) 137 mcg tablet Take 1 tablet by mouth once daily. Allergies, past surgical history, family history and past medical history were reviewed per this encounter. Medications were reviewed and verified. 10/07/2024 04/19/2025 INTAKE PAIN ASSESSMENT Are you having pain associated with your visit today? No No If pain assessment is 0, no action needed. If pain assessment is positive, please see assessment and plain. Objective Labs: (September) - Lipid Panel: LDL at target range - TSH: Within normal limits Imaging: Tests: BP 124/84 (BP Site: Left Arm, BP Position: Sitting, BP Cuff Size: Regular Adult) Pulse 78 Temp 36.3 ?C (97.3 ?F) (Temporal) Resp 18 Ht 167.6 cm (5' 6) Wt 105.2 kg (232 lb) LMP 12/09/2017 (Approximate) SpO2 98% BMI 37.45 kg/m? Physical Exam GENERAL: NAD, alert and oriented SKIN: Unremarkable, no rash or skin lesions. Barnacles noted on back, not worrisome. HEAD: Normocephalic EYES: PERRLA, EOMI, conjunctiva clear EARS: External ears normal, canals clear, TM's normal. NOSE/SINUSES: Nares normal. Septum midline. OROPHARYNX: Lips, mucosa, and tongue normal, good dentition. No oral lesions noted. NECK: Supple, no lymphadenopathy, normal thyroid, no carotid bruits. LUNGS: Clear to auscultation bilaterally, no wheezes/rhonchi/rales. HEART: Regular rate and rhythm, no murmurs. No ectopy. EXTREMITIES: Normal, no deformities, no skin discoloration, no edema. NEURO: Awake, alert and oriented x3, cranial nerves II-XII grossly intact, normal gait, no involuntary motions Procedures Assessment and Plan 1. Wellness examination (Z00.00) - Conducted comprehensive physical examination; no abnormalities detected. - Discussed current medications: Crestor, sertraline, and levothyroxine. Refills sent to [facility]. - Patient is taking fish oil intermittently; (more content not included)... [facility] 04-21-2025 History of Present illness Narrative Subjective Diandra Del Angel is a 59-year-old female with a history of hyperlipidemia, hypothyroidism, and depression, presenting for an annual wellness visit. Annual Wellness Exam: - Last mammogram was in March of last year. - Reports difficulty sleeping last night due to an active mind; denies chronic sleep issues. - Recent move; reports feeling okay. Hyperlipidemia: - Taking Crestor 10 mg daily. - Last labs were in September. Hypothyroidism: - Taking levothyroxine; occasionally misses doses. - Last TSH check was in September. Depression: - Managed with Zoloft 100 mg daily; reports feeling well on current dose. Supplements: - Takes fish oil inconsistently. Review of Systems GENERAL: Positive for sleep disturbance; denies weight loss, generalized discomfort, or fever. HEENT: Negative for frequent or significant headaches, no changes in vision or hearing, no epistaxis or other nasal problems. NECK: Negative for lumps, goiter, pain, or significant neck swelling. RESPIRATORY: Negative for cough, dyspnea, or shortness of breath. CARDIOVASCULAR: Negative for chest pain, leg swelling, CHF, or palpitations. GI: No nausea, vomiting, diarrhea, heartburn, abdominal pain, blood in stool, or black stool. GENITOURINARY: No history of dysuria, frequency, or incontinence. MUSCULOSKELETAL: Negative for joint pain or swelling or muscle pain. No back pain. SKIN: Negative for lesions, rash, and itching. PSYCH: Negative for anxiety or depression. HEMATOLOGY/LYMPHOLOGY: No bleeding concerns. NEURO: No history of headaches, syncope, paralysis, seizures, or tremors. ENDOCRINE: No history of polydipsia, increased thirst, or other endocrine symptoms. 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 PAST MEDICAL HISTORY Diagnosis Date Abnormal Pap smear of cervix normal after 2011 Allergic rhinitis, cause unspecified Depressive disorder, not elsewhere classified Mixed hyperlipidemia Unspecified hypothyroidism FAMILY HISTORY Problem Relation Age of Onset other (endometrial cancer) Mother No Known Problems Father Mental illness Brother Dementia Maternal Grandmother Heart Maternal Grandmother Cancer Maternal Grandfather Emphysema Paternal Grandfather Social History Tobacco Use Smoking status: Never Passive exposure: Never Smokeless tobacco: Never Vaping Use Vaping status: Never Used Substance Use Topics Alcohol use: No Drug use: No ALLERGIES Allergen Reactions Amoxil [Amoxicillin] Rash, Itching MEDICATIONS: omega 7-vui-xpt-fish oil (FISH OIL) 60-90-500 mg cap Take by mouth. rosuvastatin (CRESTOR) 10 mg tablet Take 1 tablet by mouth once daily. sertraline (ZOLOFT) 100 mg tablet Take 1 tablet by mouth once daily. levothyroxine (LEVOXYL) 137 mcg tablet Take 1 tablet by mouth once daily. Allergies, past surgical history, family history and past medical history were reviewed per this encounter. Medications were reviewed and verified. 10/07/2024 04/19/2025 INTAKE PAIN ASSESSMENT Are you having pain associated with your visit today? No No If pain assessment is 0, no action needed. If pain assessment is positive, please see assessment and plain. Objective Labs: (September) - Lipid Panel: LDL at target range - TSH: Within normal limits Imaging: Tests: BP 124/84 (BP Site: Left Arm, BP Position: Sitting, BP Cuff Size: Regular Adult) Pulse 78 Temp 36.3 C (97.3 F) (Temporal) Resp 18 Ht 167.6 cm (5' 6) Wt 105.2 kg (232 lb) LMP 12/09/2017 (Approximate) SpO2 98% BMI 37.45 kg/m Physical Exam GENERAL: NAD, alert and oriented SKIN: Unremarkable, no rash or skin lesions. Barnacles noted on back, not worrisome. HEAD: Normocephalic EYES: PERRLA, EOMI, conjunctiva clear EARS: External ears normal, canals clear, TM's normal. NOSE/SINUSES: Nares normal. Septum midline. OROPHARYNX: Lips, mucosa, and tongue normal, good dentition. No oral lesions noted. NECK: Supple, no lymphadenopathy, normal thyroid, no carotid bruits. LUNGS: Clear to auscultation bilaterally, no wheezes/rhonchi/rales. HEART: Regular rate and rhythm, no murmurs. No ectopy. EXTREMITIES: Normal, no deformities, no skin discoloration, no edema. NEURO: Awake, alert and oriented x3, cranial nerves II-XII grossly intact, normal gait, no involuntary motions Procedures Assessment and Plan 1. Wellness examination (Z00.00) - Conducted comprehensive physical examination; no abnormalities detected. - Discussed current medications: Crestor, sertraline, and levothyroxine. Refills sent to [facility]. - Patient is taking fish oil intermittently; advised that it is not essential. - Next wellness visit scheduled for September. 2. Encounter for screening examination for other mental health and behavioral disorders (Z13.39) - No new mental health or behavioral concerns reported. 3. Mixed hyperlipidemia (E78.2) - Currently managed with Crestor 10 mg daily. - Ordered lipid panel to assess LDL levels; target LDL <100 mg/dL. 4. Depressive disorder (F32.A) - Stable on sertraline 100 mg daily; no changes in dosage. 5. Acquired hypothyroidism (E03.9) - Managed with levothyroxine; occasional missed doses reported. - Ordered TSH level to evaluate thyroid function. 6. Screening for deficiency anemia (Z13.0) - Ordered CBC to screen for anemia. Jill Bullock MD 04/21/2025 Recording using [employer] software for draft documentation of the visit was discussed with the patient/authorized abrasives sales representative; all questions welcomed and answered. Patient/authorized abrasives sales representative agreed to proceed DUE HEALTH MAINTENANCE Hepatitis C Screening declined HIV Screening declined DTaP,Tdap,Td Vaccine(1 - Tdap) declined Hepatitis B Vaccine(1 of 3 - 19+ 3-dose series) declined Shingrix Vaccine(1 of 2) declined Pneumococcal Vaccine: 50+(1 of 1 - PCV) declined Mammogram Screening scheduled Covid-19 Vaccine( - season) declined SENSITIVE EXAMINATION CONSENT: The sensitive examination was discussed with the Patient or Patient's Authorized Video And Sound Recorder. As applicable, any other physician, advance practice provider, medical student, or other health professional student that will be observing or involved in the sensitive examination for educational or training purposes was discussed with the Patient or Authorized Video And Sound Recorder. The Patient or Authorized Video And Sound Recorder has agreed to proceed with the sensitive examination. Luz Sahni LPN April 21, 2025 8:08 AM documented in this encounter [facility] 04-21-2025 Note HNO ID: [id number] Author: LUZ SAHNI LPN Service: ? Author Type: LICENSED NURSE Type: Progress Notes Filed: 04/21/2025 08:28 Note Text: DUE HEALTH MAINTENANCE Hepatitis C Screening declined HIV Screening declined DTaP,Tdap,Td Vaccine(1 - Tdap) declined Hepatitis B Vaccine(1 of 3 - 19+ 3-dose series) declined Shingrix Vaccine(1 of 2) declined Pneumococcal Vaccine: 50+(1 of 1 - PCV) declined Mammogram Screening scheduled Covid-19 Vaccine() declined SENSITIVE EXAMINATION CONSENT: The sensitive examination was discussed with the Patient or Patient's Authorized Video And Sound Recorder. As applicable, any other physician, advance practice provider, medical student, or other health professional student that will be observing or involved in the sensitive examination for educational or training purposes was discussed with the Patient or Authorized Video And Sound Recorder. The Patient or Authorized Video And Sound Recorder has agreed to proceed with the sensitive examination. Luz Sahni LPN April 21, 2025 8:08 AM [facility] 03-30-2025 Note Patient Outreach (FA [facility]AS) VERONICA DEL ANGEL ([id number]) 1965 F Date Time Provider Department 03/30/25 JILL BULLOCK During your visit today, we recorded the following information about you: Allergies As of Date: 03/30/2025 Noted Allergy Reaction AMOXIL (AMOXICILLIN) 07/07/2014 2 - Rash 9 - Itching Date Reviewed: 10/07/2024 Reviewed by: Brain Henson LPN - Fully Assessed Visit Diagnosis:Encounter for screening mammogram for breast cancer [Z12.31] Order(s):[facility] SCRE[facility] [[id number]] Order #: [id number] FUTURE Prescriptions as of 04/30/2025 - levothyroxine (SYNTHROID) 125 mcg tablet Take 1 tablet by mouth once daily. - rosuvastatin (CRESTOR) 10 mg tablet Take 1 tablet by mouth once daily. - sertraline (ZOLOFT) 100 mg tablet Take 1 tablet by mouth once daily. - omega 8-paa-dis-fish oil (FISH OIL) 60-90-500 mg cap Take by mouth. Problem List As Of Date 03/30/2025 Noted Resolved Vitreous floaters of both eyes [H43.393] 07/08/2014 Progressive high (degenerative) myopia [H44.20] 07/08/2014 09/06/2016 S/P LASIK surgery of both eyes [Z98.890] 07/08/2014 Retinal degeneration, peripheral - Both Eyes [H*07/08/2014 09/06/2016 Dry eye syndrome of both eyes [H04.123] 09/06/2016 Hypothyroidism [E03.9] 07/22/2017 Hyperlipidemia [E78.5] 03/10/2020 Depressive disorder [F32.A] 07/22/2017 Encounter Status:Closed by YuMingle, PRODUSER on 04/30/25 [facility] 10-07-2024 Note HNO ID: [id number] Author: JILL BULLOCK MD Service: ? Author Type: Physician Type: Progress Notes Filed: 10/07/2024 13:53 Note Text: Subjective Veronica Del Angel is a 59 year old female.The patient presents today for follow-up for multiple medical problems. See list. Her chronic medical problems have been stable. Her blood pressure is under good control. She has no new complaints today. She is feeling well. Review of Systems Constitutional: Negative. HENT: Negative. Eyes: Negative. Respiratory: Negative. Cardiovascular: Negative. Gastrointestinal: Negative. Endocrine: Negative. Genitourinary: Negative. Musculoskeletal: Negative. Skin: Negative. Allergic/Immunologic: Negative. Neurological: Negative. Hematological: Negative. Psychiatric/Behavioral: Negative. 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 PAST MEDICAL HISTORY Diagnosis Date Abnormal Pap smear of cervix normal after 2011 Allergic rhinitis, cause unspecified Depressive disorder, not elsewhere classified Mixed hyperlipidemia Unspecified hypothyroidism FAMILY HISTORY Problem Relation Age of Onset other (endometrial cancer) Mother No Known Problems Father Mental illness Brother Dementia Maternal Grandmother Heart Maternal Grandmother Cancer Maternal Grandfather Emphysema Paternal Grandfather Social History Tobacco Use Smoking status: Never Passive exposure: Never Smokeless tobacco: Never Vaping Use Vaping status: Never Used Substance Use Topics Alcohol use: No Drug use: No ALLERGIES Allergen Reactions Amoxil [Amoxicillin] Rash, Itching MEDICATIONS: omega 1-kdn-ddo-fish oil (FISH OIL) 60-90-500 mg cap Take by mouth. sertraline (ZOLOFT) 100 mg tablet Take 1 tablet by mouth once daily. rosuvastatin (CRESTOR) 10 mg tablet Take 1 tablet by mouth once daily. levothyroxine (LEVOXYL) 137 mcg tablet Take 1 tablet by mouth once daily. Allergies, past surgical history, family history and past medical history were reviewed per this encounter. Medications were reviewed and verified. 05/21/2024 10/07/2024 INTAKE PAIN ASSESSMENT Are you having pain associated with your visit today? No No If pain assessment is 0, no action needed. If pain assessment is positive, please see assessment and plain. Objective BP 126/84 (BP Site: Left Arm, BP Position: Sitting, BP Cuff Size: Large Adult) Pulse 69 Temp 36.6 ?C (97.9 ?F) (Temporal) Resp 18 Ht 167.6 cm (5' 6) Wt 112 kg (247 lb) LMP 12/09/2017 (Approximate) SpO2 99% BMI 39.87 kg/m? Physical Exam Vitals reviewed. Constitutional: Appearance: Normal appearance. HENT: Head: Normocephalic and atraumatic. Nose: Nose normal. Eyes: Extraocular Movements: Extraocular movements intact. Pupils: Pupils are equal, round, and reactive to light. Cardiovascular: Rate and Rhythm: Normal rate and regular rhythm. Pulmonary: Effort: Pulmonary effort is normal. Breath sounds: Normal breath sounds. Abdominal: General: Bowel sounds are normal. Palpations: Abdomen is soft. Musculoskeletal: General: Normal range of motion. Cervical back: Normal range of motion and neck supple. Skin: General: Skin is warm and dry. Capillary Refill: Capillary refill takes less than 2 seconds. Neurological: General: No focal deficit present. Mental Status: She is alert and oriented to person, place, and time. Mental status is at baseline. Psychiatric: Mood and Affect: Mood normal. Behavior: Behavior normal. Procedures Assessment and Plan Encounter Diagnosis ICD-10-CM 1. Pure hypercholesterolemia E78.00 COMPREHENSIVE METABOLIC PANEL LIPID PANEL BASIC Improved and stable on current medication. Recheck lipids 2. Acquired hypothyroidism E03.9 THYROID STIMULATING HORMONE TSH therapeutic. Recheck TSH. Continue levothyroxine. 3. Depressive disorder F32.A Improved and stable on current medication Continue present medications. Check labs as above. Monitor blood pressure regularly. Exercise as tolerated. Maintain good diet. Follow-up in 6 months. Jill Bullock MD October 07, 2024 October 07, 2024 [facility] 10-07-2024 History of Present illness Narrative Subjective Veronica Del Angel is a 59 year old female.The patient presents today for follow-up for multiple medical problems. See list. Her chronic medical problems have been stable. Her blood pressure is under good control. She has no new complaints today. She is feeling well. Review of Systems Constitutional: Negative. HENT: Negative. Eyes: Negative. Respiratory: Negative. Cardiovascular: Negative. Gastrointestinal: Negative. Endocrine: Negative. Genitourinary: Negative. Musculoskeletal: Negative. Skin: Negative. Allergic/Immunologic: Negative. Neurological: Negative. Hematological: Negative. Psychiatric/Behavioral: Negative. 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 PAST MEDICAL HISTORY Diagnosis Date Abnormal Pap smear of cervix normal after 2011 Allergic rhinitis, cause unspecified Depressive disorder, not elsewhere classified Mixed hyperlipidemia Unspecified hypothyroidism FAMILY HISTORY Problem Relation Age of Onset other (endometrial cancer) Mother No Known Problems Father Mental illness Brother Dementia Maternal Grandmother Heart Maternal Grandmother Cancer Maternal Grandfather Emphysema Paternal Grandfather Social History Tobacco Use Smoking status: Never Passive exposure: Never Smokeless tobacco: Never Vaping Use Vaping status: Never Used Substance Use Topics Alcohol use: No Drug use: No ALLERGIES Allergen Reactions Amoxil [Amoxicillin] Rash, Itching MEDICATIONS: omega 0-byx-tdy-fish oil (FISH OIL) 60-90-500 mg cap Take by mouth. sertraline (ZOLOFT) 100 mg tablet Take 1 tablet by mouth once daily. rosuvastatin (CRESTOR) 10 mg tablet Take 1 tablet by mouth once daily. levothyroxine (LEVOXYL) 137 mcg tablet Take 1 tablet by mouth once daily. Allergies, past surgical history, family history and past medical history were reviewed per this encounter. Medications were reviewed and verified. 05/21/2024 10/07/2024 INTAKE PAIN ASSESSMENT Are you having pain associated with your visit today? No No If pain assessment is 0, no action needed. If pain assessment is positive, please see assessment and plain. Objective BP 126/84 (BP Site: Left Arm, BP Position: Sitting, BP Cuff Size: Large Adult) Pulse 69 Temp 36.6 C (97.9 F) (Temporal) Resp 18 Ht 167.6 cm (5' 6) Wt 112 kg (247 lb) LMP 12/09/2017 (Approximate) SpO2 99% BMI 39.87 kg/m Physical Exam Vitals reviewed. Constitutional: Appearance: Normal appearance. HENT: Head: Normocephalic and atraumatic. Nose: Nose normal. Eyes: Extraocular Movements: Extraocular movements intact. Pupils: Pupils are equal, round, and reactive to light. Cardiovascular: Rate and Rhythm: Normal rate and regular rhythm. Pulmonary: Effort: Pulmonary effort is normal. Breath sounds: Normal breath sounds. Abdominal: General: Bowel sounds are normal. Palpations: Abdomen is soft. Musculoskeletal: General: Normal range of motion. Cervical back: Normal range of motion and neck supple. Skin: General: Skin is warm and dry. Capillary Refill: Capillary refill takes less than 2 seconds. Neurological: General: No focal deficit present. Mental Status: She is alert and oriented to person, place, and time. Mental status is at baseline. Psychiatric: Mood and Affect: Mood normal. Behavior: Behavior normal. Procedures Assessment and Plan Encounter Diagnosis ICD-10-CM 1. Pure hypercholesterolemia E78.00 COMPREHENSIVE METABOLIC PANEL LIPID PANEL BASIC Improved and stable on current medication. Recheck lipids 2. Acquired hypothyroidism E03.9 THYROID STIMULATING HORMONE TSH therapeutic. Recheck TSH. Continue levothyroxine. 3. Depressive disorder F32.A Improved and stable on current medication Continue present medications. Check labs as above. Monitor blood pressure regularly. Exercise as tolerated. Maintain good diet. Follow-up in 6 months. Jill Bullock MD October 07, 2024 October 07, 2024 Patient is in office for 6 month exam. Patient has no current complaints or concerns. Brain Henson LPN October 07, 2024 7:53 AM documented in this encounter [facility] 10-07-2024 Note HNO ID: [id number] Author: BRAIN HENSON LPN Service: ? Author Type: LICENSED NURSE Type: Progress Notes Filed: 10/07/2024 13:53 Note Text: Patient is in office for 6 month exam. Patient has no current complaints or concerns. Brain Henson LPN October 07, 2024 7:53 AM [facility] 07-17-2024 Note HNO ID: [id number] Author: SHAWNA LITTLE OD Service: ? Author Type: LEAD MEDICAL TECHNOLOGIST Type: Progress Notes Filed: 07/17/2024 08:56 Note Text: 1. Dry eye syndrome of both eyes Continue artificial tears as needed 2. S/P LASIK (laser assisted in situ keratomileusis) of both eyes Finalized spec rx 3. PVD both eyes Stable Went over retina precautions and patient instructed to call with any new flashes/floaters Follow-up in 1 year or sooner as needed Shawna Little, CAROLYN July 17, 2024 8:[address] [facility] 07-17-2024 History of Present illness Narrative 1. Dry eye syndrome of both eyes Continue artificial tears as needed 2. S/P LASIK (laser assisted in situ keratomileusis) of both eyes Finalized spec rx 3. 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 Diandra is a 58 year old No obstetric history on file. who presents for an annual gynecologic exam without complaints. Postmenopausal: Yes since age 53 HRT use: No. Last Pap: 2020 normal (endocervical and/or squamous metaplastic cell present HPV: negative History of abnormal pap: Yes LEEP 2004, 2011 Last mammogram: [address] [facility] History of abnormal mammogram: No Sexually active: No OB History No obstetric history on file. Welfare Administrator History LMP: Age at Menarche: Age at First : Age at Menopause: Welfare Administrator History Comments: Sexual Activity: Not Asked; No partner data on record; not asked Contraception: No contraception data on record PAST MEDICAL HISTORY Diagnosis Date Allergic rhinitis, cause unspecified Depressive disorder, not elsewhere classified Unspecified hypothyroidism 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 x2 FAMILY HISTORY Problem Relation Age of Onset other (endometrial cancer) Mother SOCIAL HISTORY Social History Tobacco Use Smoking status: Never Passive exposure: Never Smokeless tobacco: Never Vaping Use Vaping Use: Never used Substance Use Topics Alcohol use: No Drug use: No REVIEW OF SYSTEMS Abdomen: No abdominal pain, nausea, vomiting, diarrhea, or constipation. No bloating, early satiety, indigestion, or increased flatulence. Bladder: No dysuria, gross hematuria, urinary frequency, urinary urgency, or incontinence Breast: No breast lumps, nipple d/c, overlying skin changes, redness or skin retraction Allergies and current medication updated:Yes EXAM: There were no vitals taken for this visit. GENERAL: pleasant, female in no apparent distress HEENT: Normocephalic, atraumatic, mucus membranes moist, and no lesions NECK: Supple, full range of motion, no adenopathy, and thyroid normal DERMATOLOGY: Normal, without lesions, non-icteric, and non-hirsute BREAST: soft, non-tender, symmetric, no dominant mass, normal nipple-areolar complex, no lymphadenopathy, and no nipple discharge CHEST: Normal inspiratory effort ABDOMEN: soft, non-tender, and no masses PELVIC: external genitalia normal, normal Bartholin's glands, urethra, [place]'s glands, no vulvar lesions, no cervical lesions, physiologic discharge present, normal appearing perineal body and perianal region, stenotic os BIMANUAL: uterus normal size, shape and consistency, no adnexal masses, and non-tender RECTOVAGINAL: deferred. NEURO: alert and oriented x3,exam grossly non-focal EXTREMITIES: normal ASSESSMENT/PLAN: 1) Health maintenance: Pap done with HPV. Mammogram up to date- done at [facility] Nutrition, exercise and routine health maintenance exams reviewed. Calcium/Vitamin D supplementation information provided. 2) Follow up one year or sooner as needed Joanne Medina APRN.CORE ANALYSIS OPERATOR documented in this encounter [facility] 04-01-2024 History of Present illness Narrative Subjective Veronica Del Angel is a 58 year old female. Maximilian presents today for her annual wellness visit. Additionally she follows up for multiple medical problems. See list. She has been compliant with her levothyroxine however she has not been compliant with her Zoloft or her Crestor as she misses many days a week. She is forgetting to take her medication. Review of Systems Constitutional: Negative. HENT: Negative. Eyes: Negative. Respiratory: Negative. Cardiovascular: Negative. Gastrointestinal: Negative. Endocrine: Negative. Genitourinary: Negative. Musculoskeletal: Negative. Skin: Negative. Allergic/Immunologic: Negative. Neurological: Negative. Hematological: Negative. Psychiatric/Behavioral: Negative. 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 x2 PAST MEDICAL HISTORY Diagnosis Date Allergic rhinitis, cause unspecified Depressive disorder, not elsewhere classified Unspecified hypothyroidism FAMILY HISTORY Problem Relation Age of Onset other (endometrial cancer) Mother Social History Tobacco Use Smoking status: Never Passive exposure: Never Smokeless tobacco: Never Vaping Use Vaping Use: Never used Substance Use Topics Alcohol use: No Drug use: No ALLERGIES Allergen Reactions Amoxil [Amoxicillin] Rash, Itching MEDICATIONS: levothyroxine (LEVOXYL) 137 mcg tablet Take 1 tablet by mouth once daily. omega 7-aju-zxm-fish oil (FISH OIL) 60-90-500 mg cap Take by mouth. sertraline (ZOLOFT) 100 mg tablet Take 1 tablet by mouth once daily. rosuvastatin (CRESTOR) 10 mg tablet Take 1 tablet by mouth once daily. Allergies, past surgical history, family history and past medical history were reviewed per this encounter. Medications were reviewed and verified. Objective BP 130/82 (BP Site: Left Arm, BP Position: Sitting, BP Cuff Size: Regular Adult) Pulse 66 Temp 36.4 C (97.6 F) (Temporal) Resp 18 Ht 167.6 cm (5' 6) Wt 114.7 kg (252 lb 12.8 oz) SpO2 99% BMI 40.80 kg/m Physical Exam Vitals reviewed. Constitutional: Appearance: Normal appearance. HENT: Head: Normocephalic and atraumatic. Nose: Nose normal. Eyes: Extraocular Movements: Extraocular movements intact. Pupils: Pupils are equal, round, and reactive to light. Cardiovascular: Rate and Rhythm: Normal rate and regular rhythm. Pulmonary: Effort: Pulmonary effort is normal. Breath sounds: Normal breath sounds. Abdominal: General: Bowel sounds are normal. Palpations: Abdomen is soft. Musculoskeletal: General: Normal range of motion. Cervical back: Normal range of motion and neck supple. Skin: General: Skin is warm and dry. Capillary Refill: Capillary refill takes less than 2 seconds. Neurological: General: No focal deficit present. Mental Status: She is alert and oriented to person, place, and time. Mental status is at baseline. Psychiatric: Mood and Affect: Mood normal. Behavior: Behavior normal. Assessment and Plan Encounter Diagnosis ICD-10-CM 1. Wellness examination Z00.00 COMPREHENSIVE METABOLIC PANEL 2. Pure hypercholesterolemia E78.00 COMPREHENSIVE METABOLIC PANEL LIPID PANEL BASIC 3. Acquired hypothyroidism E03.9 THYROID STIMULATING HORMONE 4. Major depressive disorder with single episode, in remission (HCC) F32.5 5. Screening for deficiency anemia Z13.0 COMPLETE BLOOD COUNT AND DIFFERENTIAL 6. Encounter for screening mammogram for malignant neoplasm of breast Z12.31 SHELL SCREENING All open preventative health maintenance topics discussed with patient in detail. This includes risks and benefits regarding vaccines, cancer screening, healthy life style, and diet. Continue present medications. Improve compliance with medicines. Check labs as above. Monitor blood pressure regularly. Exercise as tolerated. Maintain good diet. Follow-up in 6 months. Jill Bullock MD [facility] [facility] [employer]TENANCE Hepatitis C Screening declined HIV Screening declined DTaP,Tdap,Td Vaccine(1 - Tdap) declined Hepatitis B Vaccine(1 of 3 - 19+ 3-dose series) declined Pap Testing declined HPV Testing declined Shingrix Vaccine(1 of 2) declined Covid-19 Vaccine( - 2022-24 season) declined Mammogram Screening declined Patient states she is in process of finding new OBGYN due to hers retiring No refills needed Luz Sahni LPN April 01, 2024 8:12 AM documented in this encounter [facility] 10-01-2023 Miscellaneous Notes Patient notified of information, verbalized understanding Luz Sahni LPN October 01, 2023 10:36 AM ----- Message from Jill Bullock MD sent at 10/01/2023 9:26 AM EST ----- TSH is low. Reduce dose of Synthroid to 137 mcg daily. Recheck TSH in 3 months. documented in this encounter [facility] 07-11-2023 History of Present illness Narrative 1. Dry eye syndrome of both eyes Continue using artificial tears as needed 2. S/P LASIK (laser assisted in situ keratomileusis) of both eyes Continue with current glasses 3. Vitreous floaters of both eyes Stable Warned patient about signs/symptoms of retinal pathology and to call immediately with any sudden increase in flashes/floaters or curtain/veil over vision Follow-up in 1 year for complete or sooner as needed Shawna Little, CAROLYN July 11, 2023 3:56 PM documented in this encounter [facility] 04-02-2023 Miscellaneous Notes Population Health informed office that the following orders need generated for the care gaps to close for the year. -Documentation on vaccine discussion risks vs benefits -and documentation on Hep C and HIV conversation documented in this encounter [facility] 04-01-2023 Miscellaneous Notes Records requested from Dr Diaz's office and from Dr Ferreira's office (he has since retired). Hilary Gallagher MA documented in this encounter [facility] 03-27-2023 History of Present illness Narrative This note was created using [employer]. Subjective Veronica Del Angel is a 57 year old female. Veronica presents today for her annual wellness exam. Review of Systems Constitutional: Negative. HENT: Negative. Eyes: Negative. Respiratory: Negative. Cardiovascular: Negative. Gastrointestinal: Negative. Endocrine: Negative. Genitourinary: Negative. Musculoskeletal: Negative. Skin: Negative. Allergic/Immunologic: Negative. Neurological: Negative. Hematological: Negative. Psychiatric/Behavioral: Negative. Objective BP 112/78 (BP Site: Right Arm, BP Position: Sitting) Pulse 63 Temp 36.2 C (97.1 F) (Temporal) Resp 14 Ht 167.6 cm (5' 6) Wt 108.8 kg (239 lb 12.8 oz) SpO2 99% BMI 38.70 kg/m Physical Exam Vitals reviewed. Constitutional: Appearance: Normal appearance. She is obese. HENT: Head: Normocephalic and atraumatic. Nose: Nose normal. Eyes: Extraocular Movements: Extraocular movements intact. Pupils: Pupils are equal, round, and reactive to light. Cardiovascular: Rate and Rhythm: Normal rate and regular rhythm. Pulmonary: Effort: Pulmonary effort is normal. Breath sounds: Normal breath sounds. Abdominal: General: Bowel sounds are normal. Palpations: Abdomen is soft. Musculoskeletal: General: Normal range of motion. Cervical back: Normal range of motion and neck supple. Skin: General: Skin is warm and dry. Capillary Refill: Capillary refill takes less than 2 seconds. Neurological: General: No focal deficit present. Mental Status: She is alert and oriented to person, place, and time. Mental status is at baseline. Psychiatric: Mood and Affect: Mood normal. Behavior: Behavior normal. Assessment and Plan Encounter Diagnosis ICD-10-CM 1. Wellness examination Z00.00 COMP METABOLIC PANEL 2. Screening for deficiency anemia Z13.0 CBC + DIFF 3. Pure hypercholesterolemia E78.00 COMP METABOLIC PANEL LIPID PANEL BASIC 4. Acquired hypothyroidism E03.9 TSH BLD Jill Bullock MD [facility] MAINTENANCE HEPATITIS B(1 of 3 - 3-dose series)---yes, she had these a long time ago COVID-19 VACCINE(1)---decline HEPATITIS C SCREENING---not done HIV SCREENING---never done DTAP,TDAP,TD(1 - Tdap)---it has been years since she had this PAP TESTING---she gets this done once a year in [place]---last year Dr Ferreira did her pap in April 2022 HPV TESTING---unsure MAMMOGRAM---her last one was April 2022 COLORECTAL CANCER SCREENING---she had colonoscopy 5-6 years ago in [place] per Dr Diaz SHINGRIX VACCINE(1 of 2)---not done Mariela Quesada LPN March 27, 2023 8:50 AM documented in this encounter [facility] 09-28-2022 Miscellaneous Notes I spoke with patient Veronica Del Angel and advised her of all information and instructions per Keith's note. Patient did voice understanding and is agreeable. Mariela Quesada LPN September 28, 2022 1:20 PM I left a message for patient Veronica Del Angel to return call to office. Mariela Quesada LPN September 27, 2022 11:45 AM Please call and inform patient that labs are good overall aside from cholesterol being elevated. Patient indicated she was not consistently taking her Crestor . Patient to improve compliance with this medication, is to follow a low fat and low cholesterol diet to improve cholesterol levels. documented in this encounter [facility] 09-26-2022 Instructions Rodrigo Meehan APRN.CNP - 09/26/2022 10:17 AM EST - Complete labs - Continue current medications, improve compliance with Crestor - Notify office with any health issues or concerns - Follow up with OBGYN - Follow up with Dr. Bullock in 6 month for wellness exam. documented in this encounter [facility] 09-26-2022 History of Present illness Narrative This note was created using [employer]. Subjective Veronica Del Angel is a 57 year old female. Patient presents to the office today for a 6 month check up. Patient reports that her depression symptoms are well controlled on current dose of Zoloft and she is tolerating medication without any side effects. Patient is consistently taking her synthroid however she indicates that she has not been consistently taking her Crestor 10mg daily-----she reports that she plans to improve compliance moving forward. Patient reports she follows with OBGYN for pap smears and breast cancer screening. Patient reports she had normal colonoscopy roughly 5 years ago. Patient declined flu vaccine in office today Review of Systems Constitutional: Negative. HENT: Negative. Eyes: Negative. Respiratory: Negative. Cardiovascular: Negative. Gastrointestinal: Negative. Endocrine: Negative. Genitourinary: Negative. Musculoskeletal: Negative. Skin: Negative. Allergic/Immunologic: Negative. Neurological: Negative. Hematological: Negative. Psychiatric/Behavioral: Negative. Objective BP 120/74 (BP Site: Left Arm, BP Position: Sitting) Pulse 71 Temp 36.5 C (97.7 F) (Temporal) Resp 14 Ht 167.6 cm (5' 6) Wt 112.3 kg (247 lb 9.6 oz) SpO2 98% BMI 39.96 kg/m Physical Exam Constitutional: General: She is not in acute distress. Appearance: Normal appearance. She is obese. She is not ill-appearing, toxic-appearing or diaphoretic. HENT: Head: Normocephalic and atraumatic. Right Ear: Tympanic membrane, ear canal and external ear normal. Left Ear: Tympanic membrane, ear canal and external ear normal. Nose: Nose normal. Mouth/Throat: Mouth: Mucous membranes are moist. Pharynx: Oropharynx is clear. Eyes: Extraocular Movements: Extraocular movements intact. Conjunctiva/sclera: Conjunctivae normal. Pupils: Pupils are equal, round, and reactive to light. Neck: Vascular: No carotid bruit. Cardiovascular: Rate and Rhythm: Normal rate and regular rhythm. Pulses: Normal pulses. Heart sounds: Normal heart sounds. No murmur heard. Pulmonary: Effort: Pulmonary effort is normal. No respiratory distress. Breath sounds: Normal breath sounds. Abdominal: General: Bowel sounds are normal. Palpations: Abdomen is soft. Musculoskeletal: General: Normal range of motion. Cervical back: Normal range of motion and neck supple. No rigidity or tenderness. Lymphadenopathy: Cervical: No cervical adenopathy. Skin: General: Skin is warm and dry. Capillary Refill: Capillary refill takes less than 2 seconds. Neurological: General: No focal deficit present. Mental Status: She is alert and oriented to person, place, and time. Psychiatric: Mood and Affect: Mood normal. Behavior: Behavior normal. Thought Content: Thought content normal. Judgment: Judgment normal. Assessment and Plan ASSESSMENT/PLAN: 1. Mixed hyperlipidemia - ICD9: 272.2, ICD10: E78.2 (primary diagnosis) - to be determined upon return of lab results - Continue current medication---improve compliance with medication as prescribed - ROSUVASTATIN 10 MG TABLET 2. Hypothyroidism, unspecified type - ICD9: 244.9, ICD10: E03.9 - Instructed patient on importance of taking on an empty stomach either first thing in the morning or at bedtime. Obtain labs for further evaluation - SYNTHROID 137 MCG TABLET 3. Depressive disorder - ICD9: 311, ICD10: F32.A Symptoms well controlled, continue regimen as below - SERTRALINE 100 MG TABLET Rodrigo Meehan APRN.CORE ANALYSIS OPERATOR documented in this encounter [facility] 07-11-2022 History of Present illness Narrative Assessment and Plan 1. Dry eye syndrome of both eyes -mild symptoms both eyes 2. S/P LASIK (laser assisted in situ keratomileusis) of both eyes -stable, happy with vision 3. Vitreous floaters of both eyes -stable floaters both eyes Plan: -Retina precautions reviewed. Return to clinic as soon as possible if increased floaters, flashes, or shadows. -artificial tears twice a day both eyes -follow-up 1 year with dilated fundus exam both eyes / sooner as needed I have confirmed and edited as necessary the relevant ophthalmic history, ROS, and the neuro exam findings as obtained by others. I have seen and examined Veronica Aldana Segundolebron. I have discussed the case and the management of this patient's care with the Resident/Fellow, if applicable. I also have reviewed and agree with the assessment and plan as stated above and agree with all of its relevant components. Kei Rothman MD July 11, 2022 4:22 PM documented in this encounter [facility] 07-08-2014 History of Past i llness Narrative Problem Noted Date Resolved Date Progressive high (degenerative) myopia 4 09/06/2016 Retinal degeneration, peripheral - Both Eyes 08/201409/06/2016 documented as of this encounter (statuses as of 03/15/2022) [facility] of Past illness Narrative* Problem Noted Date Resolved Date Progressive high (degenerative) myopia 4 09/06/2016 Retinal degeneration, peripheral - Both Eyes 08/201409/06/2016 documented as of this encounter (statuses as of 07/11/2022) [facility] of Past illness Narrative* Problem Noted Date Resolved Date Progressive high (degenerative) myopia 4 09/06/2016 Retinal degeneration, peripheral - Both Eyes 08/201409/06/2016 documented as of this encounter (statuses as of 09/26/2022) [place] [id number] History of Past illness Narrative* Problem Noted Date Resolved Date Progressive high (degenerative) myopia 4 09/06/2016 Retinal degeneration, peripheral - Both Eyes 08/201409/06/2016 documented as of this encounter (statuses as of 09/27/2022) [address] History of Past illness Narrative* Problem Noted Date Resolved Date Progressive high (degenerative) myopia 4 09/06/2016 Retinal degeneration, peripheral - Both Eyes 08/201409/06/2016 documented as of this encounter (statuses as of 09/28/2022) [address] History of Past illness Narrative* Problem Noted Date Resolved Date Progressive high (degenerative) myopia 4 09/06/2016 Retinal degeneration, peripheral - Both Eyes 08/201409/06/2016 documented as of this encounter (statuses as of 03/27/2023) [address] History of Past illness Narrative* Problem Noted Date Resolved Date Progressive high (degenerative) myopia 4 09/06/2016 Retinal degeneration, peripheral - Both Eyes 08/201409/06/2016 documented as of this encounter (statuses as of 04/01/2023) [facility] of Past illness Narrative* Problem Noted Date Resolved Date Progressive high (degenerative) myopia 4 09/06/2016 Retinal degeneration, peripheral - Both Eyes 08/201409/06/2016 documented as of this encounter (statuses as of 04/01/2023) [place] [id number] History of Past illness Narrative* Problem Noted Date Resolved Date Progressive high (degenerative) myopia 4 09/06/2016 Retinal degeneration, peripheral - Both Eyes 08/201409/06/2016 documented as of this encounter (statuses as of 04/10/2023) [place] [address]11[address]2014 History of Past illness Narrative* Problem Noted Date Diagnosed Date Resolved Date Progressive high (degenerative) myopia 07/08/2014 09/06/2016 Retinal degeneration, peripheral - Both Eyes 4 09/06/2016 documented as of this encounter (statuses as of 07/12/2023) [facility] of Past illness Narrative* Problem Noted Date Diagnosed Date Resolved Date Progressive high (degenerative) myopia 07/08/2014 09/06/2016 Retinal degeneration, peripheral - Both Eyes 4 09/06/2016 documented as of this encounter (statuses as of 10/01/2023) [facility] of Past illness Narrative* Problem Noted Date Diagnosed Date Resolved Date Progressive high (degenerative) myopia 07/08/2014 09/06/2016 Retinal degeneration, peripheral - Both Eyes 4 09/06/2016 documented as of this encounter (statuses as of 10/01/2023) [facility] noteNo assessment information availableWACMC Healthcare [facility] Work Phone: Evaluation note* Diagnosis Dry eye syndrome of both eyes- Primary S/P LASIK (laser assisted in situ keratomileusis) of both eyes Vitreous floaters of both eyes [facility]* Diagnosis Mixed hyperlipidemia- Primary Hypothyroidism, unspecified type Depressive disorder Depressive disorder, not elsewhere classified [facility]* Diagnosis Wellness examination- Primary Screening for deficiency anemia Screening for other and unspecified deficiency anemia Pure hypercholesterolemia Acquired hypothyroidism Unspecified hypothyroidism [facility]* Diagnosis Dry eye syndrome of both eyes- Primary S/P LASIK (laser assisted in situ keratomileusis) of both eyes Vitreous floaters of both eyes [facility]* Diagnosis Wellness examination- Primary Pure hypercholesterolemia Acquired hypothyroidism Unspecified hypothyroidism Major depressive disorder with single episode, in remission (HCC) Screening for deficiency anemia Screening for other and unspecified deficiency anemia Encounter for screening mammogram for malignant neoplasm of breast Other screening mammogram [facility]* Diagnosis Encounter for gynecological examination (general) (routine) without abnormal findings- Primary Encounter for screening for human papillomavirus (HPV) Special screening examination for human papillomavirus (HPV) Pap smear for cervical cancer screening Screening for malignant neoplasm of the cervix Encounter for screening mammogram for breast cancer [facility]* Diagnosis Dry eye syndrome of both eyes- Primary S/P LASIK (laser assisted in situ keratomileusis) of both eyes Posterior vitreous detachment of both eyes Vitreous degeneration [facility]* Diagnosis Pure hypercholesterolemia- Primary Acquired hypothyroidism Unspecified hypothyroidism Depressive disorder Depressive disorder, not elsewhere classified [facility]* Diagnosis Wellness examination- Primary Encounter for screening examination for other mental health and behavioral disorders Mixed hyperlipidemia Depressive disorder Depressive disorder, not elsewhere classified Acquired hypothyroidism Unspecified hypothyroidism Screening for deficiency anemia Screening for other and unspecified deficiency anemia [facility]* Diagnosis Encounter for screening mammogram for breast cancer [facility]* Diagnosis Encounter for gynecological examination (general) (routine) without abnormal findings- Primary Encounter for screening mammogram for breast cancer documented in this encounter [facility] for referral (narrative)* Diagnostic Procedure Only (Routine) - Pending Review Specialty Diagnoses / Procedures Referred By Toya mendes Referred To Contact [facility] Diagnoses Encounter for screening mammogram for malignant neoplasm of breast Procedures SHELL SCREENING SCREENING MAMMOGRAPHY BI 2-VIEW BREAST INC CAD Jill Bullock MD [address] [place] [address] [facility] [address] [place] [address] Referral ID Status Reason Start Date Expiration Date Visits Requested Visits Authorized [id number] Pending Review Auto-Generat ed Referral 04/01/2024 05/01/2025 1 1 [facility] Summary Purpose Family History No Family History Records FoundNo Family History Records FoundNo Family History Records FoundNo Family History Records Found Advance Directives No Advanced Directives Records FoundNo Advanced Directives Records FoundNo Advanced Directives Records FoundNo Advanced Directives Records Found Chief Complaint and Reason for Visit Chief Complaint SCREENING Medications Administered Section Active Administered Medications - up to 3 most recent administrations Medication Order MAR Action Action Date Dose Rate Site PHENYLephrine 2.5 % 1 Drop (AK-DILATE, ANUM-SYNEPHRINE) 1 Drop, BOTH EYES, DIRECTED, Starting on Sat07/11/22 at 1530, Until Poornima 07/12/22 at 0329, Administer for dilation PROTECT FROM LIGHT Given 07/11/2022 3:27 PM EDT 1 Drop proparacaine 0.5 % 1 Drop (ALCAINE) 1 Drop, BOTH EYES, DIRECTED, Starting on Sat07/11/22 at 1530, Until Sat07/12/22 at 0329, Administer for pneumo tonometry, tonopen tonometry, or pachymetry. In the event of a proparacaine shortage, administer tetracaine 0.5% ophthalmic drops 1 drop in the left eye as directed for pneumo tonometry, tonopen tonometry, or pachymetry Given 07/11/2022 3:27 PM EDT 1 Drop tropicamide 1 % 1 Drop (MYDRIACYL) 1 Drop, BOTH EYES, DIRECTED, Starting on Sat07/11/22 at 1530, Until Sat07/12/22 at 0329, Administer for dilation Given 07/11/2022 3:27 PM EDT 1 Drop Active Administered Medications - up to 3 most recent administrations Medication Order MAR Action Action Date Dose Rate Site PHENYLephrine 2.5 % 1 Drop (AK-DILATE, ANUM-SYNEPHRINE) 1 Drop, BOTH EYES, DIRECTED, Starting on Sat07/11/23 at 1530, Until Sat07/12/23 at 0329, Administer for dilation PROTECT FROM LIGHT Given 07/11/2023 3:19 PM EDT 1 Drop proparacaine 0.5 % 1 Drop (ALCAINE) 1 Drop, BOTH EYES, DIRECTED, Starting on Sat07/11/23 at 1530, Until Sat07/12/23 at 0329, Administer for pneumo tonometry, tonopen tonometry, or pachymetry. In the event of a proparacaine shortage, administer tetracaine 0.5% ophthalmic drops 1 drop in the left eye as directed for pneumo tonometry, tonopen tonometry, or pachymetry Given 07/11/2023 3:19 PM EDT 1 Drop tropicamide 1 % 1 Drop (MYDRIACYL) 1 Drop, BOTH EYES, DIRECTED, Starting on Sat07/11/23 at 1530, Until Sat07/12/23 at 0329, Administer for dilation Given 07/11/2023 3:19 PM EDT 1 Drop Additional Source Comments Source Comments (unrecognize d section and content) In the event this informatio n is protected by the [facility] Confidentiality of Alcohol and Drug Abuse Patient Records regulations: The Federal rules restrict any use of the information to criminally investigate or prosecute any alcohol or drug abuse patient.[facility] the event this information is protected by the Federal Confidentiality of Alcohol and Drug Abuse Patient Records regulations: The Federal rules restrict any use of the information to criminally investigate or prosecute any alcohol or drug abuse patient.[facility] Center[facility] the event this information is protected by the Federal Confidentiality of Alcohol and Drug Abuse Patient Records regulations: The Federal rules restrict any use of the information to criminally investigate or prosecute any alcohol or drug abuse patient.[facility] Center[facility] the event this information is protected by the Federal Confidentiality of Alcohol and Drug Abuse Patient Records regulations: The Federal rules restrict any use of the information to criminally investigate or prosecute any alcohol or drug abuse patient.[facility] the event this information is protected by the Federal Confidentiality of Alcohol and Drug Abuse Patient Records regulations: The Federal rules restrict any use of the information to criminally investigate or prosecute any alcohol or drug abuse patient.[facility] [facility] Center[facility] the event this information is protected by the Federal Confidentiality of Alcohol and Drug Abuse Patient Records regulations: The Federal rules restrict any use of the information to criminally investigate or prosecute any alcohol or drug abuse patient.[facility] CenterIn the event this information is protected by the Federal Confidentiality of Alcohol and Drug Abuse Patient Records regulations: The Federal rules restrict any use of the information to criminally investigate or prosecute any alcohol or drug abuse patient.[facility] CenterIn the event this information is protected by the Federal Confidentiality of Alcohol and Drug Abuse Patient Records regulations: The Federal rules restrict any use of the information to criminally investigate or prosecute any alcohol or drug abuse patient.[facility] CenterIn the event this information is protected by the Federal Confidentiality of Alcohol and Drug Abuse Patient Records regulations: The Federal rules restrict any use of the information to criminally investigate or prosecute any alcohol or drug abuse patient.[facility] CenterIn the event this information is protected by the Federal Confidentiality of Alcohol and Drug Abuse Patient Records regulations: The Federal rules restrict any use of the information to criminally investigate or prosecute any alcohol or drug abuse patient.[facility] CenterIn the event this information is protected by the Federal Confidentiality of Alcohol and Drug Abuse Patient Records regulations: The Federal rules restrict any use of the information to criminally investigate or prosecute any alcohol or drug abuse patient.[facility] CenterIn the event this information is protected by the Federal Confidentiality of Alcohol and Drug Abuse Patient Records regulations: The Federal rules restrict any use of the information to criminally investigate or prosecute any alcohol or drug abuse patient.[facility] CenterIn the event this information is protected by the Federal Confidentiality of Alcohol and Drug Abuse Patient Records regulations: The Federal rules restrict any use of the information to criminally investigate or prosecute any alcohol or drug abuse patient.[facility] CenterIn the event this information is protected by the Federal Confidentiality of Alcohol and Drug Abuse Patient Records regulations: The Federal rules restrict any use of the information to criminally investigate or prosecute any alcohol or drug abuse patient.[facility] CenterIn the event this information is protected by the Federal Confidentiality of Alcohol and Drug Abuse Patient Records regulations: The Federal rules restrict any use of the information to criminally investigate or prosecute any alcohol or drug abuse patient.[facility] CenterIn the event this information is protected by the Federal Confidentiality of Alcohol and Drug Abuse Patient Records regulations: The Federal rules restrict any use of the information to criminally investigate or prosecute any alcohol or drug abuse patient.[facility] CenterIn the event this information is protected by the Federal Confidentiality of Alcohol and Drug Abuse Patient Records regulations: The Federal rules restrict any use of the information to criminally investigate or prosecute any alcohol or drug abuse patient.[facility] CenterIn the event this information is protected by the Federal Confidentiality of Alcohol and Drug Abuse Patient Records regulations: The Federal rules restrict any use of the information to criminally investigate or prosecute any alcohol or drug abuse patient.[facility] CenterIn the event this information is protected by the Federal Confidentiality of Alcohol and Drug Abuse Patient Records regulations: The Federal rules restrict any use of the information to criminally investigate or prosecute any alcohol or drug abuse patient.[facility] CenterIn the event this information is protected by the Federal Confidentiality of Alcohol and Drug Abuse Patient Records regulations: The Federal rules restrict any use of the information to criminally investigate or prosecute any alcohol or drug abuse patient.[facility] Care Teams (unrecognized sec tion and content) [employer] Reporter Relationship Specialty Start Date End Date Jill Bullock MD PCP - General Family Practice 07/28/15 [employer] Reporter Relationship Specialty Start Date End Date Jill Bullock MD PCP - General Family Practice 07/28/15 [employer] Reporter Relationship Specialty Start Date End Date Jill Bullock MD PCP - General Family Medicine 07/28/15 [employer] Reporter Relationship Specialty Start Date End Date Jill Bullock MD PCP - General Family Medicine 07/28/15 [employer] Reporter Relationship Specialty Start Date End Date Jill Bullock MD PCP - General Family Medicine 07/28/15 [employer] Reporter Relationship Specialty Start Date End Date Jill Bullock MD PCP - General Family Medicine 07/28/15 [employer] Reporter Relationship Specialty Start Date End Date Jill Bullock MD [address] [place] [address] PCP - General Family Medicine 04/01/23 Stephen Ferreira [facility] [address] [place] [phone] Obstetrics 04/01/23 Juan Diego Diaz [facility] [address] [place], [place] [phone] Gastroenterology 04/01/23 Team Status: Active Member Role Status Dates Dr. Jill Bullock MD Family Provider Active Dr. Jill Bullock MD Primary Care Provider Active Team Status: Inactive Member Role Status Dates Dr. Jill Bullock MD Primary Care Provider Active Dr. Jeff Cohen MD Attending Provider, Referring Pr ovider Active [employer] Reporter Relationship Specialty Start Date End Date Jill Bullock MD [address] [place] [address] PCP - General Family Medicine 04/01/23 Stephen Ferreira [address] [phone] Obstetrics 04/01/23 Juan Diego Diaz [address] [facility] [address] [place] [address] Gastroenterology 04/01/23 [employer] Reporter Relationship Specialty Start Date End Date Jill Bullock MD [address] [place] [address] PCP - General Family Medicine 04/01/23 Stephen Ferreira [address] [phone] Obstetrics 04/01/23 Juan Diego Diaz MD [address] [place], [place] [address] Gastroenterology 04/01/23 [employer] Reporter Relationship Specialty Start Date End Date Jill Bullock MD [address] [place] [address] PCP - General Family Medicine 04/01/23 Stephen Ferreira [address] [place] [address] Obstetrics 04/01/23 Juan Diego Diaz MD [address] [place] [address] Gastroenterology 04/01/23 [employer] Reporter Relationship Specialty Start Date End Date Jill Bullock MD [address] [place] [address] PCP - General Family Medicine 04/01/23 Stephen Ferreira [address] [place] [address] Obstetrics 04/01/23 Juan Diego Diaz MD [address] [place] [address] Gastroenterology 04/01/23 [employer]cre[employer] Reporter Relationship Specialty Start Date End Date Jill Bullock MD [address] [place] [address] PCP - General Family Medicine 04/01/23 Stephen Ferreira [address] [place] [address] Obstetrics 04/01/23 Juan Diego Diaz MD [address] [place] [address] Gastroenterology 04/01/23 [employer] Reporter Relationship Specialty Start Date End Date Jill Bullock MD [address] [place] [address] PCP - General Family Medicine 04/01/23 Stephen Ferreira [address] [phone] Obstetrics 04/01/23 Juan Diego Diaz MD [address] [facility] [address] [place] [address] Gastroenterology 04/01/23 [employer] Reporter Relationship Specialty Start Date End Date Jill Bullock MD [address] [place] [address] PCP - General Family Medicine 04/01/23 Stephen Ferreira [address] [place] [phone] Obstetrics 04/01/23 Juan Diego Diaz MD [address] [facility] [address] [place] [address] Gastroenterology 04/01/23 [employer] Reporter Relationship Specialty Start Date End Date Jill Bullock MD [address] [place] [address] PCP - General Family Medicine 04/01/23 Stephen Ferreira [address] [phone] Obstetrics 04/01/23 Juan Diego Diaz MD [address] [facility] [address] [place] [address] Gastroenterology 04/01/23 [employer] Reporter Relationship Specialty Start Date End Date Jill Bullock MD [address] [place] [address] PCP - General Family Medicine 04/01/23 Stephen Ferreira [address] [phone] Obstetrics 04/01/23 Juan Diego Diaz MD [address] [facility] [address] [place], [place] [address] Gastroenterology 04/01/23 [employer] Reporter Relationship Specialty Start Date End Date Jill Bullock MD [address] [place] [address] PCP - General Family Medicine 04/01/23 Stephen Ferreira [address] [phone] Obstetrics 04/01/23 Juan Diego Diaz MD [address] [facility] [address] [place] [address] Gastroenterology 04/01/23 INFORMATION SOURCE (unrecogn ized section and content) DATE CREATED AUTHOR 03/19/[address] [facility] [place] DATE CREATED AUTHOR AUTHOR'S ORGANIZ ATION 05/02/[address] [facility] DATE CREATED AUTHOR AUTHOR'S ORGANIZ ATION 05/29/[address] [facility] DATE CREATED AUTHOR AUTHOR'S ORGANIZ ATION 06/05/2025 [facility] Goals (unrecognized section and content) Goals may be documented in a n alternate sectionGoals may be documented in an alternate section Reason for Visit (unrecogniz ed section and content) Reason Comments Vitreous Floaters Follow Up Bilateral Dry Eye Syndrome Follow Up Bilateral Hx of Lasik Bilateral Reason Comments 6 Month Exam chronic conditions Reason Onset Date Comments Refill Request 09/26/2022 Reason Comments Results Reason Comments Yearly Exam Wellness CPE Reason Comments Orders Reason Comments Population Health Navigation Outreach Reason Comments Dry Eye Syndrome Follow Up Reason Comments Wellness Reason Comments Well Woman Reason Comments Yearly Exam Reason Comments 6 Month Exam Reason Comments Wellness FOR RECORDS PERTAINING TO PATIENTS WHO ARE OR HAVE BEEN ENROLLED IN A CHEMICAL DEPENDENCY/SUBSTANCEABUSE PROGRAM, SOME INFORMATION MAY BE OMITTED. This clinical summary was aggregated from multiple sources. Caution should be exercised in using it in the provision of clinical care. This summary normalizes information from multiple sources, and as a consequence, information in this document may materially change the coding, format and clinical context of patient data. In addition, data may be omitted in some cases. CLINICAL DECISIONS SHOULD BE BASED ON THE PRIMARY CLINICAL RECORDS. [employer] [facility]. provides no warranty or guarantee of the accuracy or completeness of information in this document.
== END | disposition home or self-care (01) ==
LOC: OPBI 07:16
PROVIDERS: PCP Family Medicine; Referring Provider Nurse Practitioner Family; Visit Provider Nurse Practitioner Family
DX: Z12.31 Encounter for screening mammogram for malignant neoplasm of breast (principal)
CPT/HCPCS: 77063; 77067